=== PATIENT | male | born 1985 | race Caucasian/White ===

== ENCOUNTER 2024-04-28 18:43 | Emergency (ER) | payer SELFPAY ==
[~2024-04-28] VITALS: Ht 180.3 cm; Wt 113.4 kg
[2024-04-28 20:48] LABS: BASOPHILS # (AUTO) 0.05 K/uL (0.00-0.20); BASOPHILS % (AUTO) 0.6 % (0.0-5.0); EOSINOPHILS # (AUTO) 0.04 K/uL (0.00-0.70); EOSINOPHILS % (AUTO) 0.5 % (0.0-8.0); HEMATOCRIT 45.8 % (42-54); IMMATURE GRANULOCYTE ABSOLUTE 0.04 K/uL (0-1); LYMPHOCYTES # (AUTO) 1.1 K/uL (1.0-4.8); LYMPHOCYTES % (AUTO) 14.2 % (21.0-51.0); MEAN CORPUSCULAR HEMOGLOBIN 29.5 pg (27.0-33.0); MEAN CORPUSCULAR HGB CONC 33.6 g/dL (32.0-36.0); MEAN CORPUSCULAR VOLUME 87.7 fL (79-99); MONOCYTES # (AUTO) 0.5 K/uL (0.1-1.0); MONOCYTES % (AUTO) 6.7 % (3.0-13.0); NEUTROPHILS # (AUTO) 6.2 K/uL (1.8-7.7); NEUTROPHILS % (AUTO) 77.5 % (40.0-77.0); PLATELET COUNT (AUTO) 178 K/uL (130-400); RED BLOOD CELL COUNT(AUTO) 5.22 MIL/uL (4.50-6.20); RED CELL DISTRIBUTION WIDTH 13.9 % (11.0-15.5); WHITE BLOOD COUNT (AUTO) 8.1 K/uL (4.8-10.8)
[2024-04-28 20:56] LABS: APPEARANCE,URINE CLEAR (CLEAR); BILIRUBIN,URINE NEGATIVE (NEGATIVE); COLOR,URINE LIGHT-YELLOW (YELLOW); GLUCOSE, URINE (UA) NEGATIVE (NEGATIVE); KETONES,URINE NEGATIVE (NEGATIVE); LEUKOCYTE ESTERASE ,URINE NEGATIVE Leu/uL (NEGATIVE); NITRATE,URINE NEGATIVE (NEGATIVE); OCCULT BLOOD,URINE NEGATIVE (NEGATIVE); PROTEIN,URINE NEGATIVE (NEGATIVE); UROBILINOGEN,URINE 0.2 mg/dL (0.2-1.0)
[2024-04-28 21:02] LABS: ADD UA MICROSCOPIC NO
[2024-04-28 21:10] LABS: POTASSIUM 3.9 mmol/L (3.5-5.1)
[2024-04-28 22:02] VITALS: BP 138/76; PULSE 82; RESP 18; TEMP 98.4; O2SAT 99
== END 2024-04-28 22:07 | disposition home or self-care (01) ==
LOC: EDH 18:43
DX: R20.2 Paresthesia of skin (principal); E78.00 Pure hypercholesterolemia, unspecified; I10 Essential (primary) hypertension
CPT/HCPCS: 36415; 80048; 81003; 84484; 85025; 93005

== ENCOUNTER → 2024-07-11 | Outpatient (CLI) | payer OTHER ==
[~2024-07-11] MED LIST: IOHEXOL 350 MG/ML 100ML INFUS..BTL IV ONE; metoPROLOL tartRATE 1 MG/ML 5ML VIAL IV ONE
--- NOTE | 2024-07-11 14:20 | HMCIMG ---
CT CARDIAC ANGIO W/CONT. CCTA REASON: CHEST PAIN COMPARISON: None TECHNIQUE: Images are obtained through the heart in the axial plane before and during bolus IV contrast infusion, 100 cc Omnipaque 350. 2-D and 3-D multiplanar reconstruction images were then performed. The injection had to be repeated once due to motion artifact on the first sequence, total contrast volume was 200 cc. FINDINGS: This dictation is for the noncardiac findings only. Cardiac and coronary artery findings are reported separately. Visualized portions of the lungs are clear. There is normal-appearing pulmonary interstitium. There is no hilar or mediastinal lymphadenopathy. Chest wall structures appear unremarkable. IMPRESSION: 1. Unremarkable noncardiac portions of CT cardiac angiography.
== END | disposition home or self-care (01) ==
LOC: RAH 09:20
PROVIDERS: ATTEND Student in an Organized Health Care Education/Training Program
DX: R07.9 Chest pain, unspecified (principal)
CPT/HCPCS: 75574; J3490; Q9967

== ENCOUNTER 2024-07-19 22:19 | Emergency (ER) | payer OTHER ==
[~2024-07-19] VITALS: Ht 180.3 cm; Wt 111.6 kg
[~2024-07-19 22:19] MED LIST changes: +ketOROlac 15MG/ML VIAL (15MG/ML) IV ONE; -metoPROLOL tartRATE 1 MG/ML 5ML VIAL IV ONE
[2024-07-19 23:17] LABS: BASOPHILS # (AUTO) 0.02 K/uL (0.00-0.20); BASOPHILS % (AUTO) 0.2 % (0.0-5.0); EOSINOPHILS # (AUTO) 0.01 K/uL (0.00-0.70); EOSINOPHILS % (AUTO) 0.1 % (0.0-8.0); HEMATOCRIT 44.2 % (42-54); IMMATURE GRANULOCYTE ABSOLUTE 0.04 K/uL (0-1); LYMPHOCYTES # (AUTO) 0.3 K/uL (1.0-4.8); LYMPHOCYTES % (AUTO) 2.5 % (21.0-51.0); MEAN CORPUSCULAR HEMOGLOBIN 28.6 pg (27.0-33.0); MEAN CORPUSCULAR HGB CONC 33.3 g/dL (32.0-36.0); MONOCYTES # (AUTO) 0.4 K/uL (0.1-1.0); MONOCYTES % (AUTO) 3.5 % (3.0-13.0); NEUTROPHILS # (AUTO) 9.2 K/uL (1.8-7.7); NEUTROPHILS % (AUTO) 93.3 % (40.0-77.0); PLATELET COUNT (AUTO) 149 K/uL (130-400); RED BLOOD CELL COUNT(AUTO) 5.14 MIL/uL (4.50-6.20); RED CELL DISTRIBUTION WIDTH 13.5 % (11.0-15.5); WHITE BLOOD COUNT (AUTO) 9.9 K/uL (4.8-10.8)
[2024-07-19] MEDS: 0.9%NACL 1000ML 1,000 ML IV ONE (23:28)
[2024-07-19 23:32] LABS: POTASSIUM 3.6 mmol/L (3.5-5.1)
[2024-07-19 23:48] LABS: ALBUMIN 3.3 g/dL (3.5-5.0); BILIRUBIN,DIRECT 0.2 mg/dL (0.0-0.3); BILIRUBIN,TOTAL 0.8 mg/dL (0.2-1.0); TOTAL PROTEIN, SERUM 6.7 g/dL (6.0-8.3)
[2024-07-20] MEDS ORDERED: IOHEXOL 350 MG/ML 100ML INFUS..BTL IV ONE (00:12)
--- NOTE | 2024-07-20 00:54 | HMCIMG ---
CT ABDOMEN/PELVIS W/CONTRAST HISTORY: Abdominal pain COMPARISON: None TECHNIQUE: Multiple sequential axial images of the abdomen and pelvis were obtained from the dome of the diaphragm through symphysis pubis. Patient was given 100 cc of Omnipaque through intravenous route. Oral contrast was not given. FINDINGS: No pleural effusion is seen bilaterally. There is no evidence of parenchymal disease or pulmonary nodule of the visualized lower lungs. Degenerative changes of the thoracolumbar spine are present. The heart is not enlarged. There is gastric distention. Liver is enlarged measuring 18 cm. There is gastric distention. Small bowel dilatation is seen with fluid-filled small bowel loops and colon may be related to enterocolitis. The liver, spleen, adrenal glands and pancreas are unremarkable. There is no evidence of hydronephrosis bilaterally. No evidence of renal stone is seen. Fecal material is seen in the colon. There are normal size retroperitoneal and mesenteric lymph nodes. No ascites is seen. No CT evidence of acute appendicitis is seen. Clinical correlation is recommended. Pelvic sidewalls are symmetric bilaterally. Bladder is well distended without wall thickening. IMPRESSION: 1. Gastric distention. Small bowel dilatation with fluid-filled small bowel loops and colon may be related to enterocolitis. CT was performed with one or more following dose reduction techniques: automated exposure control, adjustment of the mA and kv according to patient's size, or use of a iterative reconstruction technique.
[2024-07-20] MEDS ORDERED: ONDA-243 PO (01:30)
[2024-07-20] MEDS ORDERED: FAMO-136 PO (01:30)
--- NOTE | 2024-07-20 01:31 | ERN ---
General Chief Complaint: Abdominal Pain Stated Complaint: C/O ABD PAIN, N X V, DIZZINESS Time Seen by MD: 22:21 Time Seen by Midlevel: 22:21 Source: patient History of Present Illness Initial Comments Patient is a 38-year-old male with no significant past medical history presenting to the emergency department with diffuse abdominal pain that started earlier today. Associated symptoms include nausea, vomiting, and diarrhea. No other symptoms reported at this time. Allergies: Coded Allergies: No Known Allergies (Unverified Allergy, Unknown, 04/28/24) Home Meds Active Scripts Famotidine (Pepcid) 20 Mg Tablet, 1 TAB PO BID for 30 Days, #60 TAB 0 Refills Prov:DALLAS GREENBERG 07/20/24 Ondansetron (Ondansetron Odt) 4 Mg Tab.rapdis, 4 MG PO BID for 7 Days, #14 TAB Prov:DALLAS GREENBERG 07/20/24 Past Medical History Past Medical History: High Cholesterol, Hypertension Past Surgical History: None ROS Dictation CONSTITUTIONAL: Negative except for HPI HEAD/FACE: Negative except for HPI EENT: Negative except for HPI RESPIRATORY: Negative except for HPI GASTROINTESTINAL/ABDOMINAL: Negative except for HPI GENITOURINARY: Negative except for HPI MUSCULOSKELETAL: Negative except for HPI INTEGUMENTARY: Negative except for HPI NEUROLOGICAL/PSYCH: Negative except for HPI HEMATOLOGIC/LYMPHATIC: Negative except for HPI All Systems Negative, Except as noted above. 13 point review of systems assessed and all negative except for above. Physical Exam Physical Exam Dictation Vital Signs reviewed General Appearance: Alert, oriented x 3, no acute distress, well developed, nourished. Head and Face: non-traumatic. Eyes: PERRL, pink conjunctivas, eyelid no trauma, anterior chamber with arcus senilis. Ears: Pinnas intact and no signs of trauma or erythema ear canals clear and no discharge TM no erythema Nose: No discharge, no bleeding. Oropharynx: Mouth normal, tongue pink, pharynx clear,no erythema, tonsils no exudates, no abscesses noted, mucous membrane moist Neck: Supple, non-tender, no thyromegaly, no masses, no JVD, no bruits Breast:Deferred Chest:No tenderness, no crepitus, no paradoxical movement, no retractions Lungs:Clear, well-ventilated, symmetric, no rales, no wheezing, no rhonchi, no stridor, good breath sounds bilaterally Heart: Regular rate, regular rhythm, no murmur, no gallops Vascular: no peripheral edema, Abdomen: Soft, positive bowel sounds, nondistended, no guarding, nontender, no rebound, no masses no hepatomegaly, no splenomegaly, no Hoover's sign, no hernias. Rectal: Deferred Genital: Deferred Neurological: Normal speech, motor function intact, sensory function intact Musculoskeletal: Neck nontender, full range of motion, back nontender, full range of motion, Extremities: nontender, full range of motion Skin: Color pink, dry, no turgor, no rash, no lacerations, no abrasions, no contusions. Lymphatic: Deferred Results Laboratory and Microbiology Lab and Micro Result Laboratory Tests Test 07/19/24 23:05 White Blood Count 9.9 K/uL (4.8-10.8) Red Blood Count 5.14 MIL/uL (4.50-6.20) Hemoglobin 14.7 g/dL (14.0-18.0) Hematocrit 44.2 % (42-54) Mean Corpuscular Volume 86.0 fL (79-99) Mean Corpuscular Hemoglobin 28.6 pg (27.0-33.0) Mean Corpuscular Hemoglobin Concent 33.3 g/dL (32.0-36.0) Red Cell Distribution Width 13.5 % (11.0-15.5) Platelet Count 149 K/uL (130-400) Mean Platelet Volume 9.3 fL (7.5-10.5) Immature Granulocyte % (Auto) 0.4 % (0-1) Neutrophils (%) (Auto) 93.3 % (40.0-77.0) H Lymphocytes (%) (Auto) 2.5 % (21.0-51.0) L Monocytes (%) (Auto) 3.5 % (3.0-13.0) Eosinophils (%) (Auto) 0.1 % (0.0-8.0) Basophils (%) (Auto) 0.2 % (0.0-5.0) Neutrophils # (Auto) 9.2 K/uL (1.8-7.7) H Lymphocytes # (Auto) 0.3 K/uL (1.0-4.8) L Monocytes # (Auto) 0.4 K/uL (0.1-1.0) Eosinophils # (Auto) 0.01 K/uL (0.00-0.70) Basophils # (Auto) 0.02 K/uL (0.00-0.20) Absolute Immature Granulocyte (auto 0.04 K/uL (0-1) Nucleated Red Blood Cells 0.0 % (0.0-0.19) White Cell Morphology Comment See comments Sodium Level 136 mmol/L (136-145) Potassium Level 3.6 mmol/L (3.5-5.1) Chloride Level 103 mmol/L (101-111) Carbon Dioxide Level 25 mmol/L (21-32) Blood Urea Nitrogen 25 mg/dL (7-18) H Creatinine 1.0 mg/dL (0.5-1.3) Glomerular Filtration Rate Calc 98 mL/min (>90) Random Glucose 126 mg/dL (70-105) H Total Calcium 8.5 mg/dL (8.5-10.1) Total Bilirubin 0.8 mg/dL (0.2-1.0) Direct Bilirubin 0.2 mg/dL (0.0-0.3) Aspartate Amino Transf (AST/SGOT) 16 U/L (10-37) Alanine Aminotransferase (ALT/SGPT) 29 U/L (12-78) Alkaline Phosphatase 55 U/L (50-136) Total Protein 6.7 g/dL (6.0-8.3) Albumin 3.3 g/dL (3.5-5.0) L Lipase 37 U/L (16-77) Labs Reviewed?: Yes MDM MDM: Differential diagnosis: Dehydration, electrolyte abnormality, gastroenteritis, enterocolitis There are no social concerns with this patient. Prescription drug management Prescriptions will include: Zofran Pepcid Medical management and examination interpretation discussions were had by me with other qualified healthcare professionals as indicated for the patient's care. ED Course Orders Procedure Category Date Status Time Cbc With Differential LAB 07/19/24 Complete 22:47 Basic Metabolic Panel LAB 07/19/24 Complete 22:51 Hepatic Function Panel LAB 07/19/24 Complete 22:51 Lipase LAB 07/19/24 Complete 22:51 0.9%Nacl 1000ml (Ns PHA 07/19/24 Complete 1000ml) 23:30 Ct Abdomen/Pelvis CT 07/19/24 Resulted W/Contrast 23:20 Iohexol (Omnipaque) PHA 07/20/24 Complete 00:12 Ketorolac PHA 07/20/24 Complete Tromethamine 15mg/Ml 01:30 Current Medications Medications (Trade) Dose Ordered Sig/Jong Route PRN Reason Start Time Stop Time Status Last Admin Dose Admin Iohexol (Omnipaque) 35,000 mg STK-MED ONCE IV 07/20/24 00:12 07/20/24 00:12 DC Ketorolac Tromethamine (toRADol) 15 mg ONCE ONCE IV 07/20/24 01:30 07/20/24 01:32 DC 07/20/24 01:36 Sodium Chloride 1,000 ml @ 0 mls/hr ONCE ONCE IV 07/19/24 23:30 07/19/24 23:31 DC 07/19/24 23:28 Vital Signs Date Time Temp Pulse Resp B/P (MAP) Pulse Ox O2 Delivery O2 Flow Rate FiO2 07/20/24 01:38 98.4 100 18 126/82 97 Room Air* 0 07/19/24 23:40 106 18 127/88 98 Room Air* 0 07/19/24 22:21 99.9 125 20 146/94 99 Room Air [place] [id number] IMAGING REPORT Signed PATIENT: JUAN F BANDA MR#: [id number] : 1985 SEX: M AGE: 38 LOCATION: [facility] ORDER 19 STATUS: REG ER REPORT#: [id number] SERVICE 19 REASON: diffuse abd pain/fever/tachycardia ORDERING PHYSICIAN: DALLAS GREENBERG PROCEDURE: ABD PEL W - CT ABDOMEN/PELVIS W/CONTRAST CT ABDOMEN/PELVIS W/CONTRAST HISTORY: Abdominal pain COMPARISON: None TECHNIQUE: Multiple sequential axial images of the abdomen and pelvis were obtained from the dome of the diaphragm through symphysis pubis. Patient was given 100 cc of Omnipaque through intravenous route. Oral contrast was not given. FINDINGS: No pleural effusion is seen bilaterally. There is no evidence of parenchymal disease or pulmonary nodule of the visualized lower lungs. Degenerative changes of the thoracolumbar spine are present. The heart is not enlarged. There is gastric distention. Liver is enlarged measuring 18 cm. There is gastric distention. Small bowel dilatation is seen with fluid-filled small bowel loops and colon may be related to enterocolitis. The liver, spleen, adrenal glands and pancreas are unremarkable. There is no evidence of hydronephrosis bilaterally. No evidence of renal stone is seen. Fecal material is seen in the colon. There are normal size retroperitoneal and mesenteric lymph nodes. No ascites is seen. No CT evidence of acute appendicitis is seen. Clinical correlation is recommended. Pelvic sidewalls are symmetric bilaterally. Bladder is well distended without wall thickening. IMPRESSION: 1. Gastric distention. Small bowel dilatation with fluid-filled small bowel loops and colon may be related to enterocolitis. CT was performed with one or more following dose reduction techniques: automated exposure control, adjustment of the mA and kv according to patient's size, or use of a iterative reconstruction technique. DICTATED BY: EDWIN SILVA MD DATE: 07/20/2443 ELECTRONICALLY SIGNED BY: EDWIN SILVA MD DATE: 07/20/2453 DX & DISP Disposition: Discharge Departure Impression: Primary Impression: Enterocolitis Condition: Stable Scripts Famotidine (Pepcid) 20 Mg Tablet 1 TAB PO BID for 30 Days, #60 TAB 0 Refills Prov: DALLAS GREENBERG 07/20/24 Ondansetron (Ondansetron Odt) 4 Mg Tab.rapdis 4 MG PO BID for 7 Days, #14 TAB Prov: DALLAS GREENBERG 07/20/24 Additional Instructions: Your blood work today is stable. Your CT scan shows findings consistent with enterocolitis. This should improve over the next couple of days. Have given you a prescription for Zofran and Pepcid which should help improve your symptoms. Please follow up with your primary care doctor. If you develop any new or worsening symptoms please return to the ER for further evaluation. Referrals: SABI ROSENBERG MD (PCP) Time of Disposition: :29 I have reviewed the case, and I agree with, Diagnosis and Plan I performed the substantive portion of the visit. I have reviewed and personally made and approve the management plan that is documented in the note by myself or the MARYANNE. I acknowledge for responsibility for the patient's management plan. DALLAS GREENBERG Jul 20, 2024 01:31
[2024-07-20] MEDS: ketOROlac 15MG/ML VIAL (15MG/ML) IV ONE (01:36)
[2024-07-20 01:38] VITALS: BP 126/82; PULSE 100; RESP 18; TEMP 98.4; O2SAT 97
== END 2024-07-20 01:41 | disposition home or self-care (01) ==
LOC: EDH 22:19
DX: K52.9 Noninfective gastroenteritis and colitis, unspecified (principal); E78.00 Pure hypercholesterolemia, unspecified; I10 Essential (primary) hypertension
CPT/HCPCS: 99285; 74177; 80076; 80048; 83690; 85025; 36415; 96374; J7030; Q9967; J1885

== ENCOUNTER 2024-08-01 11:50 | Emergency (ER) | payer OTHER ==
[~2024-08-01] VITALS: Ht 180.3 cm; Wt 103.9 kg
[~2024-08-01 11:50] MED LIST changes: +FAMO-136 PO; -IOHEXOL 350 MG/ML 100ML INFUS..BTL IV ONE; +ONDA-243 PO; -ketOROlac 15MG/ML VIAL (15MG/ML) IV ONE
[2024-08-01] MEDS ORDERED: ASPIRIN 325MG TAB PO ONE (12:00)
--- NOTE | 2024-08-01 12:05 | ERN ---
ED Note History of Present Illness Stated Complaint: CHEST PAIN, HAND ARE TINGLING Chief Complaint: Chest Pain Time Seen by MD: 11:53 Dictation: PATIENT IS A 38-YEAR-OLD MALE COMING IN TODAY WITH HAVING ANTERIOR CHEST PAIN THAT DOES NOT RADIATE MILD SHORTNESS A BREATH AND HAND TINGLING ONSET WAS MORE THAN A WEEK AGO. HE STATES HE HAD BEEN SEEN AT [facility] [place] [place] FOR A GASTROENTERITIS, THEN SAW HIS PRIMARY CARE DOCTOR WHO PUT HIM ON ANTIBIOTICS. STATES HE HAS BEEN REFERRED TO DR. TAE GARZA BECAUSE OF INTERMITTENT CHEST PAIN HOWEVER HAS ONLY SEEN HIM ONE TIME WITH NO WORKUPS NO HEART CATHETERIZATION. HE HAS NO STENTS NO HISTORY OF CABG SURGERY. STATES HE CALLED DR. GUTIERREZ OFFICE THIS MORNING AND WAS TOLD TO COME TO THE EMERGENCY ROOM. HE STATES WHEN HE HAS A CHEST PAIN IT MAKES HIM LIGHTHEADED. Allergies: Coded Allergies: No Known Allergies (Unverified Allergy, Unknown, 04/28/24) Home Meds Active Scripts Famotidine (Pepcid) 20 Mg Tablet, 1 TAB PO BID for 30 Days, #60 TAB 0 Refills Prov:DALLAS GREENBERG 07/20/24 Ondansetron (Ondansetron Odt) 4 Mg Tab.rapdis, 4 MG PO BID for 7 Days, #14 TAB Prov:DALLAS GREENBERG 07/20/24 Past Medical History Past Medical History: Diverticulitis, High Cholesterol, Hypertension Surgical History: None RN Note Reviewed/Agreed w/PFSH: Yes Review of System Dictation CONSTITUTIONAL: NEGATIVE EXCEPT FOR HPI LIGHTHEADED HEAD/FACE: NEGATIVE EXCEPT FOR HPI EENT: NEGATIVE EXCEPT FOR HPI RESPIRATORY: NEGATIVE EXCEPT FOR HPI ANTERIOR CHEST PAIN GASTROINTESTINAL/ABDOMINAL: NEGATIVE EXCEPT FOR HPI GENITOURINARY: NEGATIVE EXCEPT FOR HPI MUSCULOSKELETAL: NEGATIVE EXCEPT FOR HPI INTEGUMENTARY: NEGATIVE EXCEPT FOR HPI NEUROLOGICAL/PSYCH: NEGATIVE EXCEPT FOR HPI NUMBNESS AND TINGLING HANDS HEMATOLOGIC/LYMPHATIC: NEGATIVE EXCEPT FOR HPI ALL SYSTEMS NEGATIVE, EXCEPT NOTED ABOVE. 13 POINT REVIEW OF SYSTEMS ASSESSED AND ALL NEGATIVE EXCEPT FOR ABOVE. Initial Vital Sign VS Vital Signs Date Time Temp Pulse Resp B/P (MAP) Pulse Ox O2 Delivery O2 Flow Rate FiO2 08/01/24 11:59 99.1 81 16 154/102 98 Room Air 0 Physical Exam Dictation VITAL SIGNS REVIEWED GENERAL APPEARANCE: ALERT, ORIENTED X 3, NO ACUTE DISTRESS, WELL DEVELOPED, NOURISHED. 1/10 PAIN, OBESE HEAD AND FACE: NON-TRAUMATIC. EYES: PERRL, PINK CONJUNCTIVAS, EYELID NO TRAUMA, ANTERIOR CHAMBER WITH ARCUS SENILIS. EARS: PINNAS INTACT AND NO SIGNS OF TRAUMA OR ERYTHEMA EAR CANALS CLEAR AND NO DISCHARGE TM NO ERYTHEMA NOSE: NO DISCHARGE, NO BLEEDING. OROPHARYNX: MOUTH NORMAL, TONGUE PINK, PHARYNX CLEAR,NO ERYTHEMA, TONSILS NO EXUDATES, NO ABSCESSES NOTED, MUCOUS MEMBRANE MOIST NECK: SUPPLE, NON-TENDER, NO THYROMEGALY, NO MASSES, NO JVD, NO BRUITS BREAST:DEFERRED CHEST:NO TENDERNESS, NO CREPITUS, NO PARADOXICAL MOVEMENT, NO RETRACTIONS LUNGS:CLEAR, WELL-VENTILATED, SYMMETRIC, NO RALES, NO WHEEZING, NO RHONCHI, NO STRIDOR, GOOD BREATH SOUNDS BILATERALLY HEART: REGULAR RATE, REGULAR RHYTHM, NO MURMUR, NO GALLOPS VASCULAR: NO PERIPHERAL EDEMA, ABDOMEN: SOFT, POSITIVE BOWEL SOUNDS, NONDISTENDED, NO GUARDING, NONTENDER, NO REBOUND, NO MASSES NO HEPATOMEGALY, NO SPLENOMEGALY, NO BHATT'S SIGN, NO HERNIAS. RECTAL: DEFERRED GENITAL: DEFERRED NEUROLOGICAL: NORMAL SPEECH, MOTOR FUNCTION INTACT, SENSORY FUNCTION INTACT MUSCULOSKELETAL: NECK NONTENDER, FULL RANGE OF MOTION, BACK NONTENDER, FULL RANGE OF MOTION, EXTREMITIES: NONTENDER, FULL RANGE OF MOTION SKIN: COLOR PINK, DRY, NO TURGOR, NO RASH, NO LACERATIONS, NO ABRASIONS, NO CONTUSIONS. LYMPHATIC: DEFERRED Results (Laboratory/Radiology) Laboratory/Radiology Laboratory Tests Test 08/01/24 12:29 White Blood Count 5.8 K/uL (4.8-10.8) Red Blood Count 5.23 MIL/uL (4.50-6.20) Hemoglobin 14.9 g/dL (14.0-18.0) Hematocrit 45.0 % (42-54) Mean Corpuscular Volume 86.0 fL (79-99) Mean Corpuscular Hemoglobin 28.5 pg (27.0-33.0) Mean Corpuscular Hemoglobin Concent 33.1 g/dL (32.0-36.0) Red Cell Distribution Width 13.0 % (11.0-15.5) Platelet Count 195 K/uL (130-400) Mean Platelet Volume 9.3 fL (7.5-10.5) Immature Granulocyte % (Auto) 0.3 % (0-1) Neutrophils (%) (Auto) 69.6 % (40.0-77.0) Lymphocytes (%) (Auto) 19.7 % (21.0-51.0) L Monocytes (%) (Auto) 9.2 % (3.0-13.0) Eosinophils (%) (Auto) 0.5 % (0.0-8.0) Basophils (%) (Auto) 0.7 % (0.0-5.0) Neutrophils # (Auto) 4.1 K/uL (1.8-7.7) Lymphocytes # (Auto) 1.2 K/uL (1.0-4.8) Monocytes # (Auto) 0.5 K/uL (0.1-1.0) Eosinophils # (Auto) 0.03 K/uL (0.00-0.70) Basophils # (Auto) 0.04 K/uL (0.00-0.20) Absolute Immature Granulocyte (auto 0.02 K/uL (0-1) Nucleated Red Blood Cells 0.0 % (0.0-0.19) Sodium Level 140 mmol/L (136-145) Potassium Level 3.7 mmol/L (3.5-5.1) Chloride Level 103 mmol/L (101-111) Carbon Dioxide Level 28 mmol/L (21-32) Blood Urea Nitrogen 11 mg/dL (7-18) Creatinine 1.1 mg/dL (0.5-1.3) Glomerular Filtration Rate Calc 87 mL/min (>90) Random Glucose 109 mg/dL (70-105) H Total Calcium 9.1 mg/dL (8.5-10.1) Magnesium Level 2.00 mg/dL (1.80-2.40) Troponin I High Sensitivity 7 ng/L (4-75) B-Type Natriuretic Peptide 9 pg/mL (0-100) Exam Type: CHEST 1VW Clinical Information: CHEST PAIN Comparison: None Findings: The lungs are clear of infiltrates. The heart is normal in size. The bony and soft tissue structures of the chest are unremarkable. Impression: Clear lungs. Labs Reviewed?: Yes EKG Comment: FIRST EKG SINUS BRADYCARDIA/HEART RATE 57/AXIS NORMAL/NO CHANGES ED Course ED Course Orders Procedure Category Date Status Time Cbc With Differential LAB 08/01/24 Complete 11:59 B-Type Natriuretic LAB 08/01/24 Complete Peptide 11:59 Chest 1vw RAD 08/01/24 Resulted 11:59 12 Lead Ekg Tracing- EKG 08/01/24 Complete Technical 11:59 Magnesium LAB 08/01/24 Complete 11:59 Troponin I High LAB 08/01/24 Complete Sensitivity 11:59 Aspirin 325mg Tab PHA 08/01/24 Complete (Aspirin 325mg Tab) 12:00 Urinalysis Profile LAB 08/01/24 Logged 11:59 Basic Metabolic Panel LAB 08/01/24 Complete 11:59 Current Medications Medications (Trade) Dose Ordered Sig/Jong Route PRN Reason Start Time Stop Time Status Last Admin Dose Admin Aspirin (Aspirin 325mg Tab) 325 mg ONCE ONCE PO 08/01/24 12:00 08/01/24 12:01 DC Vital Signs Date Time Temp Pulse Resp B/P (MAP) Pulse Ox O2 Delivery O2 Flow Rate FiO2 08/01/24 11:59 99.1 81 16 154/102 98 Room Air 0 SEVENTEEN 20, PATIENT WILL BE DISCHARGED HOME WITH ATYPICAL CHEST PAIN. HE IS AWARE THAT HE HAS A NORMAL EKG TROPONIN LABS CHEST X-RAY NO ANEMIA NO INFECTION NO ELECTROLYTE IMBALANCE HEART Score Response (Comments) Value History: Low suspicion (0) 0 Risk Factors: 1-2 risk factors (+1) 1 Initial Troponin: Normal limit (0) 0 Total 1 Medical Decision Making MDM MDM: DIFFERENTIAL DIAGNOSIS: ACS/AMI/ELECTROLYTE IMBALANCE/DEHYDRATION /PNEUMONIA/BRONCHITIS/HYPOMAGNESEMIA RATIONALE: TESTS CONSIDERED AND ORDERED SECONDARY TO SHARED DECISION MAKING INCLUDE: LABS EKG/RADIOLOGY PREVIOUS OUTSIDE RECORDS REVIEWED: OLD ER VISITS. RISK OF COMPLICATION AND/OR MORBIDITY OR MORTALITY OF PATIENT MANAGEMENT: NONE MEDICATIONS-PER MEDICATION RECONCILIATION NEED FOR HOSPITALIZATION: PATIENT DOES NOT MEET CRITERIA FOR HOSPITALIZATION./EKG/NONE NEED FOR EMERGENCY MAJOR/MINOR SURGERY: NO THERE ARE NO SOCIAL CONCERNS WITH THIS PATIENT. PRESCRIPTION DRUG MANAGEMENT NONE PRESCRIPTIONS WILL INCLUDE SYMPTOMATIC CARE PATIENT'S PRIOR EXTERNAL MEDICAL RECORDS FROM OTHER ER VISITS WERE REVIEWED BY ME INDICATED. PRIOR TESTING AND RESULTS FROM PREVIOUS VISITS WERE REVIEWED. PRIOR TESTS WERE TAKEN INTO ACCOUNT WITH MEDICAL DECISION MAKING AND RESOURCE UTILIZATION, INDEPENDENT HISTORIAN/HISTORIANS WERE USED TO OBTAIN COMPLETE M EDICAL HISTORY. I INDEPENDENTLY INTERPRETED THE TEST THAT WERE PERFORMED, RESULTS WERE REVIEWED BY ME AND CONSIDERED FINDINGS ON RADIOLOGY IF ORDERED. MEDICAL MANAGEMENT AND EXAMINATION INTERPRETATION DISCUSSIONS WERE HAD BY ME WITH OTHER QUALIFIED HEALTHCARE PROFESSIONALS INDICATED FOR THE PATIENT'S CARE. DX & DISP Disposition: Discharge Departure Impression: Primary Impression: Atypical chest pain Condition: Stable Additional Instructions: FOLLOW-UP WITH PRIMARY CARE PROVIDER IN 1 TO 2 DAYS. TAKE MEDICATIONS DIRECTED HERE IN THE EMERGENCY ROOM. OKAY TO CONTINUE HOME MEDICATIONS UNLESS OTHERWISE DISCUSSED DURING YOUR VISIT IN THE EMERGENCY ROOM TODAY. RETURN TO YOUR NEAREST EMERGENCY ROOM IF SYMPTOMS WORSEN OR IF THERE IS NO IMPROVEMENT. CALL 911 IF YOU NEED IMMEDIATE ASSISTANCE. TAKE TYLENOL OR MOTRIN [id number] NEEDED AND IF NO CONTRAINDICATIONS ARE PRESENT. INCREASE ORAL HYDRATION. A WOUND CULTURE OR URINE CULTURE WAS ORDERED HERE IN THE EMERGENCY ROOM DEPARTMENT PLEASE FOLLOW-UP WITH PRIMARY CARE PROVIDER AND ADVISE THEM TO GET REPEAT PORTS FROM OUR FACILITY. IF YOU HAD ANY KAVITHA WRAP/SPLINTS THAT WERE APPLIED HERE, PLEASE DO NOT REMOVE THEM UNTIL YOU SEE YOUR PRIMARY CARE OR SPECIALTY. DIET AND ACTIVITY TOLERATED. FOLLOW UP WITH YOUR PRIMARY CARE DOCTOR IN THE NEXT 1-2 DAYS Referrals: SABI ROSENBERG MD (PCP) Time of Disposition: 17:23 I have reviewed the case, and I agree with, Diagnosis and Plan ANGELICA ANQVI NP Aug 01, 2024 12:05
--- NOTE | 2024-08-01 12:33 | EKG ---
[facility] Test Date: 2024-08-01 Test Time: 12:31:09 Pat Name: JUAN F BANDA Department: [facility] Room: Gender: Disposition Clerk: [facility] : 1985 Requested By: ANGELICA NAQVI Order Number: [id number] Reading MD: Roberto Carlos Lauren Measurements Intervals [place] Rate: 57 P: -1 WV: 149 QRS: 39 QRSD: 99 T: 41 QT: 402 QTc: 393 Interpretive Statements Sinus rhythm Compared to ECG 04/28/2024 20:20:46 No significant changes Electronically Signed On 08-04-2024 17:31:29 [employer] by Roberto Carlos Lauren Please click the below link to view image of tracing.
--- NOTE | 2024-08-01 13:00 | HMCIMG ---
Exam Type: CHEST 1VW Clinical Information: CHEST PAIN Comparison: None Findings: The lungs are clear of infiltrates. The heart is normal in size. The bony and soft tissue structures of the chest are unremarkable. Impression: Clear lungs.
[2024-08-01 13:07] LABS: BASOPHILS # (AUTO) 0.04 K/uL (0.00-0.20); BASOPHILS % (AUTO) 0.7 % (0.0-5.0); EOSINOPHILS # (AUTO) 0.03 K/uL (0.00-0.70); EOSINOPHILS % (AUTO) 0.5 % (0.0-8.0); IMMATURE GRANULOCYTE ABSOLUTE 0.02 K/uL (0-1); LYMPHOCYTES # (AUTO) 1.2 K/uL (1.0-4.8); LYMPHOCYTES % (AUTO) 19.7 % (21.0-51.0); MEAN CORPUSCULAR HEMOGLOBIN 28.5 pg (27.0-33.0); MEAN CORPUSCULAR HGB CONC 33.1 g/dL (32.0-36.0); MONOCYTES # (AUTO) 0.5 K/uL (0.1-1.0); MONOCYTES % (AUTO) 9.2 % (3.0-13.0); NEUTROPHILS # (AUTO) 4.1 K/uL (1.8-7.7); NEUTROPHILS % (AUTO) 69.6 % (40.0-77.0); PLATELET COUNT (AUTO) 195 K/uL (130-400); RED BLOOD CELL COUNT(AUTO) 5.23 MIL/uL (4.50-6.20); WHITE BLOOD COUNT (AUTO) 5.8 K/uL (4.8-10.8)
[2024-08-01 13:11] LABS: CREATININE 1.1 mg/dL (0.5-1.3); POTASSIUM 3.7 mmol/L (3.5-5.1)
[2024-08-01 13:38] LABS: B-TYPE NATRIURETIC PEPTIDE 9 pg/mL (0-100)
[2024-08-01 17:44] VITALS: BP 137/77; PULSE 45; RESP 17; TEMP 98.3; O2SAT 96
== END 2024-08-01 17:47 | disposition home or self-care (01) ==
LOC: EDH 11:50
DX: R07.89 Other chest pain (principal); E78.00 Pure hypercholesterolemia, unspecified; I10 Essential (primary) hypertension; Z79.899 Other long term (current) drug therapy
CPT/HCPCS: 36415; 71045; 80048; 83735; 83880; 84484; 85025; 93005; 99285

== ENCOUNTER → 2024-08-15 | Outpatient (CLI) | payer OTHER | END | disposition home or self-care (01) | LOC: SHCH 15:35 | PROVIDERS: ATTEND Student in an Organized Health Care Education/Training Program | DX: R07.9 Chest pain, unspecified (principal) | CPT/HCPCS: 93306 ==

== ENCOUNTER 2024-11-09 17:58 | Inpatient (IN) | payer OTHER ==
[~2024-11-09] VITALS: Ht 180.3 cm; Wt 97.6 kg
--- NOTE | 2024-11-09 18:21 | ERN ---
ED Note History of Present Illness Stated Complaint: ABDOMINAL PAIN Chief Complaint: Abdominal Pain Time Seen by MD: 18:00 Time Seen by Midlevel: 18:00 Dictation: The patient is a 39-year-old male with a history of cholelithiasis, gastritis who presents to the emergency department after being sent over by Dr. Saucedo for elevated total bilirubin, elevated AST and ALT the were drawn on Wednesday. Patient reports he has been having right side abdominal pain for awhile since May and is following up with [place] [facility]. Patient denies any nausea or vomiting, denies any fevers diarrhea or recent constipation. Allergies: Coded Allergies: No Known Allergies (Unverified Allergy, Unknown, 04/28/24) Home Meds Active Scripts Famotidine (Pepcid) 20 Mg Tablet, 1 TAB PO BID for 30 Days, #60 TAB 0 Refills Prov:DALLAS GREENBERG 07/20/24 Ondansetron (Ondansetron Odt) 4 Mg Tab.rapdis, 4 MG PO BID for 7 Days, #14 TAB Prov:DALLAS GREENBERG 07/20/24 Past Medical History Past Medical History: High Cholesterol, Hypertension Surgical History: None RN Note Reviewed/Agreed w/PFSH: Yes Review of System Dictation Constitutional: Negative for fever,chills, and weight loss Eyes: Negative for injury, pain,redness, and discharge ENT: Negative for injury,pain or swelling Cardiovascular: Negative for chest pain, palpitations, and edema Respiratory: Negative for shortness of breath, cough, and wheezing, Abdomen/GI: Negative for nausea, vomiting, diarrhea, and constipation positive for abdominal pain Back: Negative for injury and pain : Negative for injury, bleeding and discharge MS/Extremity: Negative for injury and deformity Skin: Negative for rash, and discoloration Neuro: Negative for headache, weakness, numbness, tingling, and seizure Psych: Negative for suicide ideation, homicidal ideation, and hallucinations Initial Vital Sign VS Vital Signs Date Time Temp Pulse Resp B/P (MAP) Pulse Ox O2 Delivery O2 Flow Rate FiO2 11/09/24 17:58 99.5 108 20 148/102 98 Room Air 0 11/09/24 19:36 21 Physical Exam Dictation Vital Signs reviewed General Appearance: Alert, oriented x 3, no acute distress, well developed, nourished. Head and Face: non-traumatic. Eyes: PERRL, pink conjunctivas, eyelid no trauma, anterior chamber with arcus senilis. Ears: Pinnas intact and no signs of trauma or erythema ear canals clear and no discharge TM no erythema Nose: No discharge, no bleeding. Oropharynx: Mouth normal, tongue pink. pharynx clear,no erythema, tonsils no exudates, no abscesses noted, mucous membrane moist Neck: Supple, non-tender, no thyromegaly, no masses, no JVD, no bruits Breast:Deferred Chest:No tenderness, no crepitus, no paradoxical movement, no retractions Lungs:Clear, well-ventilated, symmetric, no rales, no wheezing, no rhonchi, no stridor, good breath sounds bilaterally Heart: Regular rate, regular rhythm, no murmur, no gallops Vascular: no peripheral edema, Abdomen: Soft, positive bowel sounds, nondistended, no guarding, nontender, no rebound, no masses no hepatomegaly, no splenomegaly, no Hoover's s ign, no hernias. Rectal: Deferred Genital: Deferred Neurological: Normal speech, motor function intact, sensory function intact Musculoskeletal: Neck nontender, full range of motion, back nontender, full range of motion, Extremities: nontender, full range of motion Skin: Color pink, dry, no turgor, no rash, no lacerations, no abrasions, no contusions. Lymphatic: Deferred Results (Laboratory/Radiology) Laboratory/Radiology Laboratory Tests Test 11/09/24 18:40 11/09/24 18:41 White Blood Count 7.4 K/uL (4.8-10.8) Red Blood Count 5.67 MIL/uL (4.50-6.20) Hemoglobin 16.1 g/dL (14.0-18.0) Hematocrit 48.5 % (42-54) Mean Corpuscular Volume 85.5 fL (79-99) Mean Corpuscular Hemoglobin 28.4 pg (27.0-33.0) Mean Corpuscular Hemoglobin Concent 33.2 g/dL (32.0-36.0) Red Cell Distribution Width 13.7 % (11.0-15.5) Platelet Count 165 K/uL (130-400) Mean Platelet Volume 9.2 fL (7.5-10.5) Immature Granulocyte % (Auto) 0.5 % (0-1) Neutrophils (%) (Auto) 79.1 % (40.0-77.0) H Lymphocytes (%) (Auto) 8.7 % (21.0-51.0) L Monocytes (%) (Auto) 10.9 % (3.0-13.0) Eosinophils (%) (Auto) 0.4 % (0.0-8.0) Basophils (%) (Auto) 0.4 % (0.0-5.0) Neutrophils # (Auto) 5.8 K/uL (1.8-7.7) Lymphocytes # (Auto) 0.6 K/uL (1.0-4.8) L Monocytes # (Auto) 0.8 K/uL (0.1-1.0) Eosinophils # (Auto) 0.03 K/uL (0.00-0.70) Basophils # (Auto) 0.03 K/uL (0.00-0.20) Absolute Immature Granulocyte (auto 0.04 K/uL (0-1) Nucleated Red Blood Cells 0.0 % (0.0-0.19) White Cell Morphology Comment See comments Sodium Level 138 mmol/L (136-145) Potassium Level 3.6 mmol/L (3.5-5.1) Chloride Level 102 mmol/L (101-111) Carbon Dioxide Level 23 mmol/L (21-32) Blood Urea Nitrogen 13 mg/dL (7-18) Creatinine 1.1 mg/dL (0.5-1.3) Glomerular Filtration Rate Calc 86 mL/min (>90) Random Glucose 107 mg/dL (70-105) H Total Calcium 9.2 mg/dL (8.5-10.1) Total Bilirubin 4.4 mg/dL (0.2-1.0) H Direct Bilirubin 3.6 mg/dL (0.0-0.3) H Aspartate Amino Transf (AST/SGOT) 164 U/L (10-37) H Alanine Aminotransferase (ALT/SGPT) 621 U/L (12-78) *H Alkaline Phosphatase 238 U/L (50-136) H Total Protein 7.4 g/dL (6.0-8.3) Albumin 3.9 g/dL (3.5-5.0) Lipase 49 U/L (16-77) Urine Color YELLOW (YELLOW) Urine Appearance CLEAR (CLEAR) Urine pH 5.0 (5.0-8.0) Urine Specific [place] 1.007 (1.001-1.031) Urine Protein NEGATIVE mg/dL (NEGATIVE) Urine Glucose (UA) NEGATIVE mg/dL (NEGATIVE) Urine Ketones NEGATIVE mg/dL (NEGATIVE) Urine Occult Blood NEGATIVE (NEGATIVE) Urine Nitrate NEGATIVE (NEGATIVE) Urine Bilirubin 0.5 mg/dL (NEGATIVE) H Urine Urobilinogen 2.0 mg/dL (0.2-1.0) H Urine Leukocyte Esterase NEGATIVE Jesús/uL Urine RBC 0-1 /HPF (0-1) Urine WBC 2-5 /HPF (0-1) H Urine Bacteria None /HPF (None Seen) REASON: Adominal Pain ORDERING PHYSICIAN: ASHTYN CAMPOS PROCEDURE: ABDRUQLTD - US ABDOMINAL RUQ\LTD US ABDOMINAL RUQ\E\LTD HISTORY: Abdominal pain COMPARISON: None TECHNIQUE: Right upper quadrant abdominal ultrasound study was performed. FINDINGS: Liver measures 15.4 cm. The visualized portion of the pancreas is within normal limits. Liver is echogenic consistent with liver parenchymal disease. Gallbladder is contracted. Portal vein is patent. No gallstone is seen. Common duct measures 9 mm. No evidence of gallbladder wall thickening is seen. Right kidney measures 10.6 x 6.1 x 4.6 cm. No hydronephrosis is seen of the right kidney. IMPRESSION: 1. Contracted gallbladder. No gallstones or ductal dilatation is seen. 2. No hydronephrosis is seen. Labs Reviewed?: Yes ED Course ED Course Orders Procedure Category Date Status Time Vital Signs Per CPOE 11/09/24 Transmitted Routine 18:01 Saline Lock Iv CPOE 11/09/24 Transmitted 18:01 Cbc With Differential LAB 11/09/24 Complete 18:01 Lipase LAB 11/09/24 Complete 18:01 Urinalysis Profile LAB 11/09/24 Complete 18:01 Basic Metabolic Panel LAB 11/09/24 Complete 18:01 Us Abdominal Ruq\Ltd US 11/09/24 Resulted 18:13 0.9%Nacl 1000ml (Ns PHA 11/09/24 Complete 1000ml) 18:30 Morphine 4mg Syg PHA 11/09/24 Complete (Morphine 4mg Syg) 18:30 Ondansetron 4mg Inj PHA 11/09/24 Complete (Zofran 4mg Inj) 18:30 Hepatic Function Panel LAB 11/09/24 Complete 18:01 Current Medications Medications (Trade) Dose Ordered Sig/Jong Route PRN Reason Start Time Stop Time Status Last Admin Dose Admin Morphine Sulfate (morPHINE 4MG SYG) 4 mg ONCE ONCE IVP 11/09/24 18:30 11/09/24 18:31 DC 11/09/24 19:49 Ondansetron HCl (zoFRAN 4MG INJ) 4 mg ONCE ONCE IVP 11/09/24 18:30 11/09/24 18:31 DC 11/09/24 19:49 Sodium Chloride 1,000 ml @ 0 mls/hr ONCE ONCE IV 11/09/24 18:30 11/09/24 18:31 DC 11/09/24 19:50 Vital Signs Date Time Temp Pulse Resp B/P (MAP) Pulse Ox O2 Delivery O2 Flow Rate FiO2 11/09/24 19:36 99.5 108 20 148/102 98 Room Air* 0 21 11/09/24 17:58 99.5 108 20 148/102 98 Room Air 0 Medical Decision Making MDM MDM: The patient is a 39-year-old male with a history of cholelithiasis, gastritis who presents to the emergency department after being sent over by Dr. Saucedo for elevated total bilirubin, elevated AST and ALT the were drawn on Wednesday. Patient reports he has been having right side abdominal pain for awhi le since May and is following up with [place] [facility]. Patient denies any nausea or vomiting, denies any fevers diarrhea or recent constipation. CBC showed no leukocytosis, no anemia, chemistry showed a GFR of 86, no electrolyte imbalance, total bilirubin of 4.4, AST of 164, ALT of 621, alkaline phosphate of 238. Abdominal ultrasound showed contracted gallbladder, no gallstones or ductal dilation is seen, no hydronephrosis is seen. Patient will be admitted for further evaluation and treatment. Differential diagnosis: Choledocholithiasis, pancreatitis, electrolyte imbalance, dehydration Comorbidities: Cholelithiasis, gastritis Tests considered and not ordered secondary to shared decision making include: none Previous outside records reviewed: none Risk of complication and/or morbidity or mortality of patient management: The patient meets criteria for admission. Need for emergency major/minor surgery: No There are no social concerns with this patient. I independently interpreted the tests I ordered (labs, urinalysis, etc.). I discussed the case with the hospitalist for admission. Terry MADDEN who accepts admission. I discussed the case with the following specialists: none. Historian: pateint. I independently interpreted imaging studies and EKGs that I ordered (US, CT, XR, EKG, etc.). External chart review: none. Medical management and examination interpretation discussions were had by me with other qualified healthcare professionals as indicated for the patient's care. DX & DISP Disposition: Inpatient Decision to Admit Date: November 09, 2024 Decision to Admit Time: 20:48 Departure Impression: Primary Impression: Hyperbilirubinemia Additional Impressions: Transaminitis, Abdominal pain Condition: Stable Referrals: SABI ROSENBERG MD (PCP) I have reviewed the case, and I agree with, Diagnosis and Plan ASHTYN CAMPOS [facility] November 09, 2024 18:21
[2024-11-09 18:52] LABS: BASOPHILS # (AUTO) 0.03 K/uL (0.00-0.20); BASOPHILS % (AUTO) 0.4 % (0.0-5.0); EOSINOPHILS # (AUTO) 0.03 K/uL (0.00-0.70); EOSINOPHILS % (AUTO) 0.4 % (0.0-8.0); HEMATOCRIT 48.5 % (42-54); IMMATURE GRANULOCYTE ABSOLUTE 0.04 K/uL (0-1); LYMPHOCYTES # (AUTO) 0.6 K/uL (1.0-4.8); LYMPHOCYTES % (AUTO) 8.7 % (21.0-51.0); MEAN CORPUSCULAR HEMOGLOBIN 28.4 pg (27.0-33.0); MEAN CORPUSCULAR HGB CONC 33.2 g/dL (32.0-36.0); MEAN CORPUSCULAR VOLUME 85.5 fL (79-99); MONOCYTES # (AUTO) 0.8 K/uL (0.1-1.0); MONOCYTES % (AUTO) 10.9 % (3.0-13.0); NEUTROPHILS # (AUTO) 5.8 K/uL (1.8-7.7); NEUTROPHILS % (AUTO) 79.1 % (40.0-77.0); PLATELET COUNT (AUTO) 165 K/uL (130-400); RED BLOOD CELL COUNT(AUTO) 5.67 MIL/uL (4.50-6.20); RED CELL DISTRIBUTION WIDTH 13.7 % (11.0-15.5); WHITE BLOOD COUNT (AUTO) 7.4 K/uL (4.8-10.8)
[2024-11-09 19:00] LABS: ADD UA MICROSCOPIC YES; APPEARANCE,URINE CLEAR (CLEAR); BILIRUBIN,URINE 0.5 mg/dL (NEGATIVE); COLOR,URINE YELLOW (YELLOW); GLUCOSE, URINE (UA) NEGATIVE (NEGATIVE); KETONES,URINE NEGATIVE (NEGATIVE); LEUKOCYTE ESTERASE ,URINE NEGATIVE Leu/uL (NEGATIVE); NITRATE,URINE NEGATIVE (NEGATIVE); OCCULT BLOOD,URINE NEGATIVE (NEGATIVE); PROTEIN,URINE NEGATIVE (NEGATIVE)
[2024-11-09 19:02] LABS: MUCUS,URINE RARE LPF (None Seen); RBC,URINE 0-1 /HPF (0-1)
[2024-11-09 19:03] LABS: CREATININE 1.1 mg/dL (0.5-1.3); POTASSIUM 3.6 mmol/L (3.5-5.1)
[2024-11-09 19:14] LABS: ALBUMIN 3.9 g/dL (3.5-5.0); BILIRUBIN,DIRECT 3.6 mg/dL (0.0-0.3); BILIRUBIN,TOTAL 4.4 mg/dL (0.2-1.0); TOTAL PROTEIN, SERUM 7.4 g/dL (6.0-8.3)
--- NOTE | 2024-11-09 19:26 | HMCIMG ---
US ABDOMINAL RUQ\E\LTD HISTORY: Abdominal pain COMPARISON: None TECHNIQUE: Right upper quadrant abdominal ultrasound study was performed. FINDINGS: Liver measures 15.4 cm. The visualized portion of the pancreas is within normal limits. Liver is echogenic consistent with liver parenchymal disease. Gallbladder is contracted. Portal vein is patent. No gallstone is seen. Common duct measures 9 mm. No evidence of gallbladder wall thickening is seen. Right kidney measures 10.6 x 6.1 x 4.6 cm. No hydronephrosis is seen of the right kidney. IMPRESSION: 1. Contracted gallbladder. No gallstones or ductal dilatation is seen. 2. No hydronephrosis is seen.
[2024-11-09] MEDS: ondanSETRON 4MG INJ IVP ONE (19:49)
[2024-11-09] MEDS: morPHINE 4 MG SYG IVP ONE (19:49)
[2024-11-09] MEDS: 0.9%NACL 1000ML 1,000 ML IV ONE (19:50)
--- NOTE | 2024-11-09 20:57 | HP ---
History of Present Illness Reason for Visit: abdominal pain History of Present Illness Mr. montejo is a 39-year-old male that was seen and examined today on 11/09/2024. Patient is a good historian of personal health Patient states that he came to the emergency department with a chief complaint of abdominal pain. Onset was May 2024. Location is bilateral lower quadrants. Character is described as burning and dull ache. Symptoms are aggravated with eating. There was no alleviating factors. Patient reports associated constipation. Patient states he has been worked up for his chronic abdominal pain by both his video journalist and his PCP and there was no explanation for this abdominal pain today in the emergency department CBC unremarkable, urinalysis unremarkable, total bilirubin 4.4, AST 136, ALT 620, alk: Phosphatase 258, ultrasound of abdomen shows liver parenchymal disease. Emergency room physician recommended patient be admitted with a diagnosis of transaminitis. Past Medical History ADDITIONAL PAST MEDICAL HISTORY: [Hypertension, hyperlipidemia, chronic abdominal pain since May 2024] SOCIAL HISTORY: [Negative for smoking. Patient drinks alcohol about 2 times a week usually 2-3 beers that are 12 oz each. Patient denies drug use.] SURGICAL HISTORY: [Denies] Review of Systems General: No Fever, No Chills, No Night Sweats, No Fatigue, No Malaise, No Appetite, No Other HEENT: No Head Aches, No Visual Changes, No Eye Pain, No Ear Pain, No Dysphasia, No Sinus Congestion, No Post Nasal Drip, No Sore Throat, No Other Pulmonary: No Dyspnea, No Cough, No Pleuritic Chest Pain, No Other Cardiovascular: No: Chest Pain, Palpitations, Orthopnea, Paroxysmal Noc. Dyspnea, Edema, Lt Headedness, Other Gastrointestinal: Abdominal Pain, Constipation; No: Nausea, Vomiting, Diarrhea, Melena, Hematochezia, Other Genitourinary: No Dysuria, No Frequency, No Incontinence, No Hematuria; Retention; No Other Musculoskeletal: No: other, neck pain, shoulder pain, arm pain, back pain, hand pain, leg pain, foot pain Skin: No Urticaria, No Rash, No Other Neurological: No: Weakness, Numbness, Incoordination, Change in speech, Confu francesco, Seizures, Other Allergies: Coded Allergies: No Known Allergies (Unverified Allergy, Unknown, 04/28/24) Scheduled Famotidine (Pepcid), 1 TAB PO BID Ondansetron (Ondansetron Odt), 4 MG PO BID Exam Vital Signs Vital Signs Date Time Temp Pulse Resp B/P (MAP) Pulse Ox O2 Delivery O2 Flow Rate FiO2 11/09/24 19:36 99.5 108 20 148/102 98 Room Air* 0 21 General Appearance: Alert, Oriented X3, Cooperative, mild distress HEENT: Atraumatic, EOMI, Mucous membr. moist/pink Respiratory: Clear to auscultation, Normal air movement, NL respiratory effort Cardiovascular: Regular rate, Regular rhythm, Normal S1, Normal S2 Abdominal: Normal bowel sounds, No tenderness Extremities: No edema Skin: No significant lesion Neuro: Normal speech, Strength at 5/5 X4 ext, Sensation intact, Cranial nerves 3-12 NL Psych/Mental Status: Mental status NL, Mood NL, Thoughts/Content NL Assessment/Plan ASSESSMENT: [ Liver cirrhosis, POA, by abdominal ultrasound which reads" liver parenchymal disease, "on 11/09/2024 Transaminitis Elevated total bilirubin Hypertension Hyperlipidemia] PLAN: [ Admit patient to medical floor as inpatient status. Patient will be followed by Gastroenterology. Keep patient NPO. Check preprocedure labs, CBC, BMP, magnesium, phosphorus, PTT, UA, type and screen, EKG, CXR Monitor intake and output every shift. Weight patient daily. Check ammonia level, follow up with the results Check acute hepatitis panel Lactulose 20 g/30 mL by mouth twice daily Consider resuming home medications once they have been reconciled and patient is no longer NPO For now, Hydralazine 10 mg IV every 4 hours for systolic blood pressure greater than 160 mmHg GI prophylaxis, famotidine DVT prophylaxis, Nitesh's and SCDs ADVANCED CARE PLANNING 1. Which of the following were discussed? Hospice Care - Yes Therapeutic options - Yes Advance Directives - Yes -patient states he does not have any advance directives in place at this time, however his sister Cynthia Arthur can make decisions for him if he becomes unable. Other discussions - patient wishes to remain a full code at this time 2. Discussed with who? Patient 3. Voluntary nature of this service was explained to the patient? Yes 4. Amount of time spent - ___ 16 minutes ____ 5. Reviewed by Physician? (if this service was performed by NPP) Yes This document was generated in part using voice recognition software, occasional wrong word or sound alike substitutions may have occurred due to the inherent limitations of voice recognition software. Read the chart carefully and recognize using context, where the substitutions have occurred. Although every effort was made to edit the content, combination machine tool setter and typing errors may occur ADDENDUM: ATTENDING PHYSICIAN ATTESTATION: I have reviewed the [facility]'s plan. I have independently seen, reviewed the chart and made my own assessment of the patient. See my addendum for updates to the [facility]'s medical plan MD NAVID Varner JOE D [facility] November 09, 2024 20:57 ADRIANA ROSADO MD November 10, 2024 17:20
[2024-11-09] MEDS ORDERED: acetaMINOPHEN 325 MG TAB PO PRN (21:00)
[2024-11-09] MEDS ORDERED: hydrALAZine 20MG/ML VIAL IV PRN (21:00)
[2024-11-09] MEDS: LACTULOSE 20 GM/30 ML UDCUP PO SCH (21:32)
[2024-11-10 07:33] LABS: BASOPHILS # (AUTO) 0.03 K/uL (0.00-0.20); BASOPHILS % (AUTO) 0.6 % (0.0-5.0); EOSINOPHILS # (AUTO) 0.04 K/uL (0.00-0.70); EOSINOPHILS % (AUTO) 0.8 % (0.0-8.0); HEMATOCRIT 46.1 % (42-54); IMMATURE GRANULOCYTE ABSOLUTE 0.02 K/uL (0-1); LYMPHOCYTES # (AUTO) 0.8 K/uL (1.0-4.8); MEAN CORPUSCULAR HEMOGLOBIN 28.7 pg (27.0-33.0); MEAN CORPUSCULAR HGB CONC 33.2 g/dL (32.0-36.0); MEAN CORPUSCULAR VOLUME 86.3 fL (79-99); MONOCYTES # (AUTO) 0.6 K/uL (0.1-1.0); MONOCYTES % (AUTO) 13.2 % (3.0-13.0); NEUTROPHILS # (AUTO) 3.2 K/uL (1.8-7.7); PLATELET COUNT (AUTO) 141 K/uL (130-400); RED BLOOD CELL COUNT(AUTO) 5.34 MIL/uL (4.50-6.20); WHITE BLOOD COUNT (AUTO) 4.8 K/uL (4.8-10.8)
[2024-11-10 07:42] LABS: INR 1.01 (0.85-1.15); PROTHROMBIN TIME 10.7 SEC (9.6-11.6)
[2024-11-10 07:43] LABS: PARTIAL THROMBOPLASTIN TIME 25.8 SEC (26.3-35.5)
[2024-11-10 07:46] LABS: ALBUMIN 3.6 g/dL (3.5-5.0); BILIRUBIN,TOTAL 4.7 mg/dL (0.2-1.0); CREATININE 1.1 mg/dL (0.5-1.3); MAGNESIUM 1.9 mg/dL (1.80-2.40); PHOSPHORUS 4.1 mg/dL (2.5-4.9); POTASSIUM 4.1 mmol/L (3.5-5.1); TOTAL PROTEIN, SERUM 6.9 g/dL (6.0-8.3)
--- NOTE | 2024-11-10 08:14 | CONS ---
GASTROENTEROLOGY CONSULTATION NOTE Date of Consultation: November 10, 2024 Time of Consultation: 08:14 History of Present Illness: This is a 39yo male with past medial history of HTN, HLD, and abdominal pain ongoing since 05/2024. Patient was seen in clinic recently and LFTs were unremarkable. He presents now with elevated LFTs. He has stage 1 fibrosis. No evidence of cirrhosis. Total bili increased to 4.7. MRCP without c holedocholithiasis. Review of Systems: CONSTITUTIONAL: No malaise or change in sensation of wellbeing. ENMT: No rhinorrhea, otorrhea, sinus pain, ear ache. CARDIOVASCULAR: No angina, palpitations, orthopnea or paroxysmal dyspnea. RESPIRATORY: No SOB. GASTROINTESTINAL: No abdominal pain, nausea, vomiting, diarrhea, hematemesis, melena or change in the patient's habitual bowel movements consistency/number. GENITOURINARY: No dysuria, hematuria or change in bladder continence. MUSCULOSKELETAL: No new muscle pain or decrease in muscular strength. No new joint swelling, redness or tenderness. SKIN: No new rash. Past Medical History: ADDITIONAL PAST MEDICAL HISTORY: [Hypertension, hyperlipidemia, chronic abdominal pain since May 2024] SOCIAL HISTORY: [Negative for smoking. Patient drinks alcohol about 2 times a week usually 2-3 beers that are 12 oz each. Patient denies drug use.] SURGICAL HISTORY: [Denies] Coded Allergies: No Known Drug Allergies (Unverified Allergy, Unknown, 11/10/24) kiwi (Unverified Allergy, Unknown, 11/10/24) Uncoded Allergies: SEASONAL ALLERGIES (Allergy, Mild, 11/10/24) Physical Exam: GEN: Awake, alert, oriented in person, time and place, and in no acute distress. HEENT: No sinus tenderness. Tympanic membranes were not examined. No rhinorrhea. Oral pharyngeal mucosa is pink, moist and within normal limits. Neck is supple with no cervical lymphadenopathy, thyromegaly or JVD. CHEST: Inspection, palpation and percussion of the chest were unremarkable. Lung auscultation revealed normal breath sounds bilaterally. CARDIAC: PMI is within normal limits. Heart sounds are regular. Normal S1, S2. No gallop or murmur. ABD: Soft, non-tender and not distended. No peritoneal signs on palpation. No organomegaly. Normal bowel sounds. EXT: No cyanosis or clubbing. No edema. SKIN: Intact. No rashes. JOINTS: No evidence of synovitis or acute arthritis. NEURO: Alert and oriented to name, place and person. Cranial nerve examination is unremarkable. No focal motor deficits. Normal speech. Gait is normal. Strength is normal. Vital Sign (Last 24 Hours) 11/10/24 04:00 Temp 99.0 Pulse 50 Resp 16 B/P (MAP) 150/65 Pulse Ox 98 O2 Delivery Room Air* O2 Flow Rate 0 FiO2 21 Laboratory: [ ] Laboratory: Test 11/10/24 07:13 11/09/24 21:35 11/09/24 18:41 11/09/24 18:40 Range/Units White Blood Count 4.8 # 4.8-10.8 K/uL Red Blood Count 5.34 4.50-6.20 MIL/uL Hemoglobin 15.3 14.0-18.0 g/dL Hematocrit 46.1 42-54 % Mean Corpuscular Volume 86.3 79-99 fL Mean Corpuscular Hemoglobin 28.7 27.0-33.0 pg Mean Corpuscular Hemoglobin Concent 33.2 32.0-36.0 g/dL Red Cell Distribution Width 14.0 11.0-15.5 % Platelet Count 141 130-400 K/uL Mean Platelet Volume 9.6 7.5-10.5 fL Immature Granulocyte % (Auto) 0.4 0-1 % Neutrophils (%) (Auto) 68.0 40.0-77.0 % Lymphocytes (%) (Auto) 17.0 L 21.0-51.0 % Monocytes (%) (Auto) 13.2 H 3.0-13.0 % Eosinophils (%) (Auto) 0.8 0.0-8.0 % Basophils (%) (Auto) 0.6 0.0-5.0 % Neutrophils # (Auto) 3.2 1.8-7.7 K/uL Lymphocytes # (Auto) 0.8 L 1.0-4.8 K/uL Monocytes # (Auto) 0.6 0.1-1.0 K/uL Eosinophils # (Auto) 0.04 0.00-0.70 K/uL Basophils # (Auto) 0.03 0.00-0.20 K/uL Absolute Immature Granulocyte (auto 0.02 0-1 K/uL Nucleated Red Blood Cells 0.0 0.0-0.19 % Prothrombin Time 10.7 9.6-11.6 SEC Prothromb Time International Ratio 1.01 0.85-1.15 Activated Partial Thromboplast Time 25.8 L 26.3-35.5 SEC Sodium Level 142 136-145 mmol/L Potassium Level 4.1 3.5-5.1 mmol/L Chloride Level 105 101-111 mmol/L Carbon Dioxide Level 25 21-32 mmol/L Blood Urea Nitrogen 16 7-18 mg/dL Creatinine 1.1 0.5-1.3 mg/dL Glomerular Filtration Rate Calc 86 >90 mL/min Random Glucose 98 70-105 mg/dL Total Calcium 9.2 8.5-10.1 mg/dL Phosphorus Level 4.1 2.5-4.9 mg/dL Magnesium Level 1.90 1.80-2.40 mg/dL Total Bilirubin 4.7 H 0.2-1.0 mg/dL Aspartate Amino Transf (AST/SGOT) 164 H 10-37 U/L Alanine Aminotransferase (ALT/SGPT) 554 H 12-78 U/L Alkaline Phosphatase 237 H 50-136 U/L Total Protein 6.9 6.0-8.3 g/dL Albumin 3.6 3.5-5.0 g/dL Ammonia 15 11-32 umol/L Urine Color YELLOW YELLOW Urine Appearance CLEAR CLEAR Urine pH 5.0 5.0-8.0 Urine Specific [place] 1.007 1.001-1.031 Urine Protein NEGATIVE NEGATIVE mg/dL Urine Glucose (UA) NEGATIVE NEGATIVE mg/dL Urine Ketones NEGATIVE NEGATIVE mg/dL Urine Occult Blood NEGATIVE NEGATIVE Urine Nitrate NEGATIVE NEGATIVE Urine Bilirubin 0.5 H NEGATIVE mg/dL Urine Urobilinogen 2.0 H 0.2-1.0 mg/dL Urine Leukocyte Esterase NEGATIVE NEGATIVE Jesús/uL Urine RBC 0-1 0-1 /HPF Urine WBC 2-5 H 0-1 /HPF Urine Bacteria None None Seen /HPF White Cell Morphology Comment See comments Direct Bilirubin 3.6 H 0.0-0.3 mg/dL Lipase 49 16-77 U/L Current Medications Medications (Trade) Dose Ordered Sig/Jong Route PRN Reason Start Time Stop Time Status Last Admin Dose Admin Acetaminophen (TYLenol 325MG TAB) 650 mg Q6H PRN PO TEMPERATURE GREATER THAN 101.5 11/09/24 21:00 12/09/24 20:59 Famotidine (Pepcid 20mg Tab) 20 mg DAILY PO 11/10/24 09:00 12/10/24 08:59 Hydralazine HCl (APRESOLine 20MG INJ) 10 mg Q6H PRN IV For:SBP above 160;DBP above 90 11/09/24 21:00 12/09/24 20:59 Lactulose (Constulose 20gm/ 30ml Udcup) 20 gm BID PO 11/09/24 21:00 12/09/24 20:59 11/09/24 21:32 20 GM Morphine Sulfate (morPHINE 2MG SYG) 2 mg Q4H PRN IVP SEVERE PAIN (7-10) 11/09/24 21:00 11/16/24 20:59 Ondansetron HCl (zoFRAN 4MG INJ) 4 mg Q6H PRN IV NAUSEA/VOMITING 11/09/24 21:00 12/09/24 20:59 Diagnostics / Radiology: [COPY/PASTE HERE IF NO REPORTS PLEASE DELETE SECTION] Assessment: Cholelithiasis Abnormal LFTs Plan: HIDA scan Surgical consult Trend LFTs ERCP not warranted given negative MRCP. RUDY RAMON ADMISSIONS NURSE November 10, 2024 08:14
[2024-11-10] MEDS: FAMOTIDINE 20MG TAB PO SCH (09:02)
[2024-11-10 09:47] LABS: ACETAMINOPHEN < 1 mcg/mL (10-29); ALCOHOL, BLOOD < 3 mg/dL (0-10); SALICYLATE < 2.8 mg/dL (2.8-20.0)
[2024-11-10 10:22] LABS: HIV 1&2 ANTIBODY Non-Reactive (Negative); HIV-1 p24 Antigen Non-Reactive (Negative)
--- NOTE | 2024-11-10 11:02 | HMCIMG ---
Exam Type: MRI OF THE ABDOMEN cholangiopancreatography Comparison Study: none History: eval for cbd stone FINDINGS: No evidence of nephro or ureterolithiasis is found. No hydronephrosis or ureteral dilatation is seen. The stomach is unremarkable. There is no evidence of gastric dilatation. No blastic thickening is noted to suggest inflammation or tumor. There is no perforation. There is no gastric outlet obstruction. There is no ulceration. The spleen is unremarkable. It is not enlarged. The pancreas shows normal anatomy. It is not fatty replaced. It shows no lesions. The pancreatic duct is not dilated. There is evidence of cholelithiasis. No evidence of acute or chronic inflammation is seen. The adrenal glands are unremarkable. There is no enlargement. No lesions are noted. The liver is unremarkable. It shows no focal masses. The visualized segments of large and small bowel appear unremarkable. The bony and vascular structures are unremarkable for the patient's age. MRCP is unremarkable. The common bile duct is well as the intrahepatic bile ducts are well seen without filling defects to suggest calculi. There are no areas of dilatation or abrupt cutoffs. IMPRESSION: Cholelithiasis. No choledocholithiasis.
--- NOTE | 2024-11-10 13:59 | NUR ---
DCP: HOME Pt lives alone in his own home. Pt works at [employer], is very active and drives. Pt reports he is independent of all ADLS, no DME or in home care services. PCP is Edmond Bagley and uses [facility] for rx. Sister Urmila Valenzuela [phone] is er contact Addendum: 11/10/24 at 1428 by ALLYSSA COLEMAN Amended: Links added.
--- NOTE | 2024-11-10 17:31 | PN ---
[facility] PROGRESS NOTE Date of Service: November 10, 2024 Time of Service: 17:23 SUBJECTIVE: 11/10 patient seen at bedside, no acute events overnight. Been afebrile, hemodynamically stable, tachycardia is improving he is saturating well on room air. MRCP is pending, we will follow up with the results. Further recommendations per GI. LFTs are trending back to normal, remainder of his labs are relatively unremarkable. We will expand differential for elevated LFTs, we will order acetaminophen, salicylate levels, HIV, hepatitis panel, blood alcohol level and a drug panel and follow up. REVIEW OF SYSTEMS CONSTITUTIONAL: Denies fevers, chills, or night sweats. No unintentional weight loss reported. NEUROLOGICAL: Denies headache, amaurosis fugax, motor weakness, sensory deficit, vertigo/spinning sensation, gait abnormalities, or tremors. ENT: No hearing loss, otalgia, otorrhea, rhinitis, rhinorrhea, hoarseness, or sore throat. CARDIOVASCULAR: Denies any exertional angina, dyspnea on exertion, orthopnea, paroxysmal nocturnal dyspnea, palpitations, life-threatening arrhythmias, claudication. PULMONARY: Denies any shortness of breath, cough, phlegm/sputum, hemoptysis, pleuritic chest pain. SLEEP: Denies morning headaches, daytime somnolence or napping. Denies difficulty falling asleep, staying asleep, waking from sleep. Denies knowledge of snoring. GASTROINTESTINAL: Denies any type of dysphagia to either liquids or solids. Denies nausea, vomiting, pyrosis, early satiety, abdominal pain, diarrhea, constipation, or changes in stool consistency or caliber. Denies coffee-ground e mesis, hematemesis, hematochezia, or melanotic stools. GENITOURINARY: Denies frequency, urgency, nocturia, hematuria or incontinence (Storage/Irritative symptoms.) Low urinary stream, straining to void, urinary intermittency or hesitancy, splitting of the voiding stream, terminal dribbling. ENDOCRINOLOGIC: Denies polyuria, polydipsia, polyphagia or heat/cold intolerances. HEMATOLOGIC: Denies thrombophilia/previous clots, or coagulopathy/bleeding disorders. ONCOLOGIC: Denies personal history of malignancy. DERMATOLOGIC: Denies rashes or pruritus. PSYCHIATRIC: Denies any suicidal or homicidal ideation. Denies hallucinations. PHYSICAL EXAM GENERAL APPEARANCE: The patient is awake, alert, and oriented, in no acute cardiopulmonary distress. NEUROLOGICAL: Cranial nerves II-XII grossly intact. Motor is 5/5 in bilateral upper and lower extremities proximal to distal. No sensory deficits. HEENT: Face is symmetric. Pupils are equal and reactive. Extraocular movements are intact. NECK: Supple. No JVD. No thyromegaly. No submental, submandibular, pre-/posta uricular, occipital or supraclavicular lymphadenopathy. CHEST: Normal chest expansion. No Telemetry. LUNGS: Absence of any rales, rhonchi or any wheezing. CARDIOVASCULAR: Regular. S1 and S2 normal. No appreciable rubs, murmurs or gallops. ABDOMEN: Soft, nontender, and nondistended. There is no rebound, voluntary guarding, or rigidity. : Deferred. No Weber. EXTREMITIES: Non-edematous and not cyanotic. No clubbing. Good capillary refill. SKIN: No skin breakdown. Vital Signs (last 8hr) Date Time Temp Pulse Resp B/P (MAP) Pulse Ox O2 Delivery O2 Flow Rate FiO2 11/10/24 16:05 98.2 78 18 135/82 98 Room Air* 0 21 LABS: Laboratory: Test 11/10/24 16:17 11/10/24 09:22 11/10/24 07:13 11/09/24 21:35 Range/Units Stool Lactoferrin (DIDI) POSITIVE H NEGATIVE Salicylates Level < 2.8 L 2.8-20.0 mg/dL Acetaminophen Level < 1 L 10-29 mcg/mL Serum Alcohol < 3 0-10 mg/dL HIV (1&2) Antibody Non-Reactive Negative HIV P24 Antigen, Qualitative Non-Reactive Negative White Blood Count 4.8 # 4.8-10.8 K/uL Red Blood Count 5.34 4.50-6.20 MIL/uL Hemoglobin 15.3 14.0-18.0 g/dL Hematocrit 46.1 42-54 % Mean Corpuscular Volume 86.3 79-99 fL Mean Corpuscular Hemoglobin 28.7 27.0-33.0 pg Mean Corpuscular Hemoglobin Concent 33.2 32.0-36.0 g/dL Red Cell Distribution Width 14.0 11.0-15.5 % Platelet Count 141 130-400 K/uL Mean Platelet Volume 9.6 7.5-10.5 fL Immature Granulocyte % (Auto) 0.4 0-1 % Neutrophils (%) (Auto) 68.0 40.0-77.0 % Lymphocytes (%) (Auto) 17.0 L 21.0-51.0 % Monocytes (%) (Auto) 13.2 H 3.0-13.0 % Eosinophils (%) (Auto) 0.8 0.0-8.0 % Basophils (%) (Auto) 0.6 0.0-5.0 % Neutrophils # (Auto) 3.2 1.8-7.7 K/uL Lymphocytes # (Auto) 0.8 L 1.0-4.8 K/uL Monocytes # (Auto) 0.6 0.1-1.0 K/uL Eosinophils # (Auto) 0.04 0.00-0.70 K/uL Basophils # (Auto) 0.03 0.00-0.20 K/uL Absolute Immature Granulocyte (auto 0.02 0-1 K/uL Nucleated Red Blood Cells 0.0 0.0-0.19 % Prothrombin Time 10.7 9.6-11.6 SEC Prothromb Time International Ratio 1.01 0.85-1.15 Activated Partial Thromboplast Time 25.8 L 26.3-35.5 SEC Sodium Level 142 136-145 mmol/L Potassium Level 4.1 3.5-5.1 mmol/L Chloride Level 105 101-111 mmol/L Carbon Dioxide Level 25 21-32 mmol/L Blood Urea Nitrogen 16 7-18 mg/dL Creatinine 1.1 0.5-1.3 mg/dL Glomerular Filtration Rate Calc 86 >90 mL/min Random Glucose 98 70-105 mg/dL Total Calcium 9.2 8.5-10.1 mg/dL Phosphorus Level 4.1 2.5-4.9 mg/dL Magnesium Level 1.90 1.80-2.40 mg/dL Total Bilirubin 4.7 H 0.2-1.0 mg/dL Aspartate Amino Transf (AST/SGOT) 164 H 10-37 U/L Alanine Aminotransferase (ALT/SGPT) 554 H 12-78 U/L Alkaline Phosphatase 237 H 50-136 U/L Total Protein 6.9 6.0-8.3 g/dL Albumin 3.6 3.5-5.0 g/dL Ammonia 15 11-32 umol/L Test 11/09/24 18:41 11/09/24 18:40 Range/Units Urine Color YELLOW YELLOW Urine Appearance CLEAR CLEAR Urine pH 5.0 5.0-8.0 Urine Specific [place] 1.007 1.001-1.031 Urine Protein NEGATIVE NEGATIVE mg/dL Urine Glucose (UA) NEGATIVE NEGATIVE mg/dL Urine Ketones NEGATIVE NEGATIVE mg/dL Urine Occult Blood NEGATIVE NEGATIVE Urine Nitrate NEGATIVE NEGATIVE Urine Bilirubin 0.5 H NEGATIVE mg/dL Urine Urobilinogen 2.0 H 0.2-1.0 mg/dL Urine Leukocyte Esterase NEGATIVE NEGATIVE Jesús/uL Urine RBC 0-1 0-1 /HPF Urine WBC 2-5 H 0-1 /HPF Urine Bacteria None None Seen /HPF White Cell Morphology Comment See comments Direct Bilirubin 3.6 H 0.0-0.3 mg/dL Lipase 49 16-77 U/L Current Medications Medications (Trade) Dose Ordered Sig/Jong Route PRN Reason Start Time Stop Time Status Last Admin Dose Admin Acetaminophen (TYLenol 325MG TAB) 650 mg Q6H PRN PO TEMPERATURE GREATER THAN 101.5 11/09/24 21:00 12/09/24 20:59 Famotidine (Pepcid 20mg Tab) 20 mg DAILY PO 11/10/24 09:00 12/10/24 08:59 11/10/24 09:02 20 MG Hydralazine HCl (APRESOLine 20MG INJ) 10 mg Q6H PRN IV For:SBP above 160;DBP above 90 11/09/24 21:00 12/09/24 20:59 Lactulose (Constulose 20gm/ 30ml Udcup) 20 gm BID PO 11/09/24 21:00 12/09/24 20:59 11/09/24 21:32 20 GM Morphine Sulfate (morPHINE 2MG SYG) 2 mg Q4H PRN IVP SEVERE PAIN (7-10) 11/09/24 21:00 11/16/24 20:59 Ondansetron HCl (zoFRAN 4MG INJ) 4 mg Q6H PRN IV NAUSEA/VOMITING 11/09/24 21:00 12/09/24 20:59 DIAGNOSTICS / RADIOLOGY: [ ] ASSESSMENT: Liver cirrhosis, POA, by abdominal ultrasound which reads" liver parenchymal disease, "on 11/09/2024 Transaminitis Elevated total bilirubin Hypertension Hyperlipidemia PLAN: MRCP pending will follow up Salicylate, acetaminophen levels pending HIV ordered will follow up Hepatitis ordered, will follow up GI consulted, appreciate recommendations Disposition: pending improvement in clinical status ADRIANA ROSADO MD November 10, 2024 17:31
--- NOTE | 2024-11-10 17:52 | NUR ---
SPOKE TO DR GIRALDO IS LAB RESULTS GIVEN IS AWARE OF CONSULT WILL COME SEE PT.
[2024-11-10] MEDS: ZOSYN 3.375GM +NS 50ML IV SCH (19:15)
[2024-11-10] MEDS ORDERED: OMEP20CA12 PO (20:12)
[2024-11-10] MEDS ORDERED: LOSA25TA41 PO (20:12)
[2024-11-10] MEDS ORDERED: LOSA50TA64 PO (20:12)
[2024-11-10] MEDS ORDERED: ROSU10TA72 PO (20:12)
--- NOTE | 2024-11-10 20:58 | HMCIMG ---
HEPATOBILIARY SCAN INDICATION: Right upper abdominal pain COMPARISON: None RADIOPHARMACEUTICAL: Tc99m Choletec DOSE: 7.0 mCi given IV. TECHNIQUE: Abdominal functional images were obtained and submitted for interpretation. FINDINGS: Functional images obtained up to 4 hours showed normal hepato-intestinal transit time, but no accumulation of activity within the gallbladder within normal limits. IMPRESSION: Findings suggesting acute cholecystitis.
--- NOTE | 2024-11-10 21:08 | NUR ---
REPORT GIVEN TO CLEO PATTERSON AT 2100 PT AAOX4 STABLE NO DISTRESS NO C/O PAIN NOW , VITALS WNL. PT TRANSFERRED BY W/C WITH PERSONAL BELONGINGS BY IVANA JEFFREY.
[2024-11-10 21:10] VITALS: BP 162/89; PULSE 72; RESP 18
[2024-11-10 21:15] VITALS: O2SAT 98
--- NOTE | 2024-11-10 21:15 | NUR ---
ADMIT PT ADMITTED TO ROOM 320, AAOX4. DENIES OF ABDOMINAL PAINS AT THIS TIME. ADMISSION CARE DONE. V/S MONITORED, STABLE. ADMISSION DATA BASE COMPLETED. KEPT NPO ORDERED. ORIENTED TO ROOM AND UNIT. PT REQUESTED TO SHOWER, PCP IN TO ASSIST PT. IN FOR MORE CARE AND MANAGEMENT. Addendum: 11/10/24 at 2247 by CLEO STRATTON RN RN Amended: Links added.
[2024-11-10 23:47] VITALS: BP 129/74; PULSE 55; RESP 16; TEMP 98
[2024-11-11] VITALS (7 sets, daily range): BP systolic 124–157; BP diastolic 70–95; PULSE 60–86; RESP 16–22; TEMP 97.6–98; O2SAT 95–100
[2024-11-11] MEDS: ZOSYN 3.375GM +NS 50ML IV SCH (04:45)
[2024-11-11 06:30] LABS: BASOPHILS # (AUTO) 0.04 K/uL (0.00-0.20); EOSINOPHILS # (AUTO) 0.08 K/uL (0.00-0.70); EOSINOPHILS % (AUTO) 1.9 % (0.0-8.0); HEMATOCRIT 43.7 % (42-54); IMMATURE GRANULOCYTE ABSOLUTE 0.03 K/uL (0-1); LYMPHOCYTES # (AUTO) 0.8 K/uL (1.0-4.8); LYMPHOCYTES % (AUTO) 18.4 % (21.0-51.0); MEAN CORPUSCULAR HEMOGLOBIN 28.8 pg (27.0-33.0); MEAN CORPUSCULAR HGB CONC 33.2 g/dL (32.0-36.0); MEAN CORPUSCULAR VOLUME 86.9 fL (79-99); MONOCYTES # (AUTO) 0.5 K/uL (0.1-1.0); MONOCYTES % (AUTO) 12.2 % (3.0-13.0); NEUTROPHILS # (AUTO) 2.8 K/uL (1.8-7.7); NEUTROPHILS % (AUTO) 65.8 % (40.0-77.0); PLATELET COUNT (AUTO) 123 K/uL (130-400); RED BLOOD CELL COUNT(AUTO) 5.03 MIL/uL (4.50-6.20); RED CELL DISTRIBUTION WIDTH 13.9 % (11.0-15.5); WHITE BLOOD COUNT (AUTO) 4.2 K/uL (4.8-10.8)
[2024-11-11 07:00] LABS: ALBUMIN 3.4 g/dL (3.5-5.0); BILIRUBIN,TOTAL 6.2 mg/dL (0.2-1.0); CREATININE 0.9 mg/dL (0.5-1.3); PHOSPHORUS 4.3 mg/dL (2.5-4.9); POTASSIUM 4.2 mmol/L (3.5-5.1); TOTAL PROTEIN, SERUM 6.6 g/dL (6.0-8.3)
--- NOTE | 2024-11-11 07:10 | NUR ---
REPORT PT SLEPT AT INTERVALS DURING THE SHIFT. NO DISTRESS NOTED. NO CONCERNS VERBALIZED. REPORT GIVEN TO AM NURSE JANETTE. NURSE'S ROUNDS DONE. FOR MORE CARE AND MANAGEMENT.
--- NOTE | 2024-11-11 13:53 | PN ---
[facility] PROGRESS NOTE Date of Service: November 11, 2024 Time of Service: 13:43 SUBJECTIVE: 11/10 patient seen at bedside, no acute events overnight. Been afebrile, hemodynamically stable, tachycardia is improving he is saturating well on room air. MRCP is pending, we will follow up with the results. Further recommendations per GI. LFTs are trending back to normal, remainder of his labs are relatively unremarkable. We will expand differential for elevated LFTs, we will order acetaminophen, salicylate levels, HIV, hepatitis panel, blood alcohol level and a drug panel and follow up. 11/11 patient seen at bedside, no acute events overnight. He has been afebrile, hemodynamically stable, saturating well on room air. MRCP showing cholelithiasis with no evidence of choledocholithiasis. T bili increased from 4.7 up to 6.2, LFT stable, similar to yesterday. General surgery does not believe it is acute cholecystitis and that is underlying liver disease however platelets and INR are normal which is not consistent with cirrhosis. This appears to be acute in nature, we will consult GI for possible ERCP as there may be sphincter dysfunction given the size of the common bile duct and the uptrending T bili. REVIEW OF SYSTEMS 12 point ROS negative unless noted in HPI PHYSICAL EXAM GENERAL APPEARANCE: The patient is awake, alert, and oriented, in no acute cardiopulmonary distress. NEUROLOGICAL: Cranial nerves II-XII grossly intact. Motor is 5/5 in bilateral upper and lower extremities proximal to distal. No sensory deficits. HEENT: Face is symmetric. Pupils are equal and reactive. Extraocular movements are intact. NECK: Supple. No JVD. No thyromegaly. No submental, submandibular, pre- /postauricular, occipital or supraclavicular lymphadenopathy. CHEST: Normal chest expansion. No Telemetry. LUNGS: Absence of any rales, rhonchi or any wheezing. CARDIOVASCULAR: Regular. S1 and S2 normal. No appreciable rubs, murmurs or gallops. ABDOMEN: Soft, nontender, and nondistended. There is no rebound, voluntary guarding, or rigidity. : Deferred. No Weber. EXTREMITIES: Non-edematous and not cyanotic. No clubbing. Good capillary refill. SKIN: No skin breakdown. Vital Signs (last 8hr) Date Time Temp Pulse Resp B/P (MAP) Pulse Ox O2 Delivery O2 Flow Rate FiO2 11/11/24 11:38 98.1 86 20 157/95 99 Room Air 21 11/11/24 07:49 97.9 74 22 125/70 100 Room Air 21 LABS: Laboratory: Test 11/11/24 06:10 11/10/24 16:17 11/10/24 09:22 11/10/24 07:13 Range/Units White Blood Count 4.2 L 4.8-10.8 K/uL Red Blood Count 5.03 4.50-6.20 MIL/uL Hemoglobin 14.5 14.0-18.0 g/dL Hematocrit 43.7 42-54 % Mean Corpuscular Volume 86.9 79-99 fL Mean Corpuscular Hemoglobin 28.8 27.0-33.0 pg Mean Corpuscular Hemoglobin Concent 33.2 32.0-36.0 g/dL Red Cell Distribution Width 13.9 11.0-15.5 % Platelet Count 123 L 130-400 K/uL Mean Platelet Volume 9.1 7.5-10.5 fL Immature Granulocyte % (Auto) 0.7 0-1 % Neutrophils (%) (Auto) 65.8 40.0-77.0 % Lymphocytes (%) (Auto) 18.4 L 21.0-51.0 % Monocytes (%) (Auto) 12.2 3.0-13.0 % Eosinophils (%) (Auto) 1.9 0.0-8.0 % Basophils (%) (Auto) 1.0 0.0-5.0 % Neutrophils # (Auto) 2.8 1.8-7.7 K/uL Lymphocytes # (Auto) 0.8 L 1.0-4.8 K/uL Monocytes # (Auto) 0.5 0.1-1.0 K/uL Eosinophils # (Auto) 0.08 0.00-0.70 K/uL Basophils # (Auto) 0.04 0.00-0.20 K/uL Absolute Immature Granulocyte (auto 0.03 0-1 K/uL Nucleated Red Blood Cells 0.0 0.0-0.19 % Sodium Level 141 136-145 mmol/L Potassium Level 4.2 3.5-5.1 mmol/L Chloride Level 103 101-111 mmol/L Carbon Dioxide Level 29 21-32 mmol/L Blood Urea Nitrogen 18 7-18 mg/dL Creatinine 0.9 0.5-1.3 mg/dL Glomerular Filtration Rate Calc 110 >90 mL/min Random Glucose 89 70-105 mg/dL Total Calcium 9.3 8.5-10.1 mg/dL Phosphorus Level 4.3 2.5-4.9 mg/dL Magnesium Level 2.00 1.80-2.40 mg/dL Total Bilirubin 6.2 #H 0.2-1.0 mg/dL Aspartate Amino Transf (AST/SGOT) 168 H 10-37 U/L Alanine Aminotransferase (ALT/SGPT) 512 H 12-78 U/L Alkaline Phosphatase 239 H 50-136 U/L Total Protein 6.6 6.0-8.3 g/dL Albumin 3.4 L 3.5-5.0 g/dL Stool Lactoferrin (DIDI) POSITIVE H NEGATIVE Salicylates Level < 2.8 L 2.8-20.0 mg/dL Acetaminophen Level < 1 L 10-29 mcg/mL Serum Alcohol < 3 0-10 mg/dL HIV (1&2) Antibody Non-Reactive Negative HIV P24 Antigen, Qualitative Non-Reactive Negative Prothrombin Time 10.7 9.6-11.6 SEC Prothromb Time International Ratio 1.01 0.85-1.15 Activated Partial Thromboplast Time 25.8 L 26.3-35.5 SEC Test 11/09/24 21:35 11/09/24 18:41 11/09/24 18:40 Range/Units Ammonia 15 11-32 umol/L Urine Color YELLOW YELLOW Urine Appearance CLEAR CLEAR Urine pH 5.0 5.0-8.0 Urine Specific [place] 1.007 1.001-1.031 Urine Protein NEGATIVE NEGATIVE mg/dL Urine Glucose (UA) NEGATIVE NEGATIVE mg/dL Urine Ketones NEGATIVE NEGATIVE mg/dL Urine Occult Blood NEGATIVE NEGATIVE Urine Nitrate NEGATIVE NEGATIVE Urine Bilirubin 0.5 H NEGATIVE mg/dL Urine Urobilinogen 2.0 H 0.2-1.0 mg/dL Urine Leukocyte Esterase NEGATIVE NEGATIVE Jesús/uL Urine RBC 0-1 0-1 /HPF Urine WBC 2-5 H 0-1 /HPF Urine Bacteria None None Seen /HPF White Cell Morphology Comment See comments Direct Bilirubin 3.6 H 0.0-0.3 mg/dL Lipase 49 16-77 U/L Current Medications Medications (Trade) Dose Ordered Sig/Jong Route PRN Reason Start Time Stop Time Status Last Admin Dose Admin Acetaminophen (TYLenol 325MG TAB) 650 mg Q6H PRN PO TEMPERATURE GREATER THAN 101.5 11/09/24 21:00 12/09/24 20:59 Famotidine (Pepcid 20mg Tab) 20 mg DAILY PO 11/10/24 09:00 12/10/24 08:59 11/11/24 08:30 20 MG Hydralazine HCl (APRESOLine 20MG INJ) 10 mg Q6H PRN IV For:SBP above 160;DBP above 90 11/09/24 21:00 12/09/24 20:59 Lactulose (Constulose 20gm/ 30ml Udcup) 20 gm BID PO 11/09/24 21:00 12/09/24 20:59 11/11/24 08:30 20 GM Morphine Sulfate (morPHINE 2MG SYG) 2 mg Q4H PRN IVP SEVERE PAIN (7-10) 11/09/24 21:00 11/16/24 20:59 Ondansetron HCl (zoFRAN 4MG INJ) 4 mg Q6H PRN IV NAUSEA/VOMITING 11/09/24 21:00 12/09/24 20:59 Piperacillin Sod/ Tazobactam Sod (Zosyn 3.375gm+NS 50ml) 3.375 gm ONCE IV 11/10/24 18:00 11/10/24 22:00 DC 11/10/24 19:15 3.375 GM Piperacillin Sod/ Tazobactam Sod (Zosyn 3.375gm+NS 50ml) 3.375 gm ZOSY8 IV 11/11/24 05:00 11/21/24 04:59 11/11/24 13:15 3.375 GM DIAGNOSTICS / RADIOLOGY: [ ] ASSESSMENT: Liver cirrhosis, questionable, normal platelets, normal INR POA, Abdominal ultrasound reads" liver parenchymal disease, "on 11/09/2024 Dilated CBD at 9mm Transaminitis Elevated total bilirubin Hypertension Hyperlipidemia PLAN: Salicylate, acetaminophen levels normal HIV negative Hepatitis ordered, will follow up General Surgery consulted, appreciate recommendations GI consulted, appreciate recommendations Disposition: pending improvement in clinical status, possible ERCP, GI recommendations, General Surgery recommendations ADRIANA ROSADO MD November 11, 2024 13:53
--- NOTE | 2024-11-11 20:40 | NUR ---
[facility] SHIFT ASSESSMENT DONE, PLEASE REFER TO CHART. DUE MEDS ADMINISTERED, TOLERATED WELL. PT REFUSED LACTULOSE DOSE TONIGHT, VERBALIZES HAVING HAD 4 BOWEL MOVEMENTS ALREADY DURING THE DAY. KEPT RESTED IN BED. CALL LIGHT WITHIN REACH.
--- NOTE | 2024-11-11 23:59 | CONS ---
HISTORY OF PRESENT ILLNESS: The patient is a 39-year-old white male who has been having abdominal pain on and off since May. He has had workup with endoscopy as an outpatient with no significant findings according to the patient. The patient was admitted with elevated liver function tests and some right lower quadrant abdominal pain and I have been asked to see the patient for the above. SOCIAL HISTORY: Negative for IV drugs. He drinks socially. 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 PAST MEDICAL HISTORY: The patient denies any other past medical history except for hypertension. ALLERGIES: No known drug allergies. PHYSICAL EXAMINATION: GENERAL: The patient is awake, alert and oriented. He is in no acute distress. He is afebrile. VITAL SIGNS: Stable. HEENT: He has scleral icterus. CHEST: Clear. HEART: Regular rate and rhythm. ABDOMEN: Soft, nontender. No guarding. No rebound. Positive bowel sounds. EXTREMITIES: Show no edema. LABORATORY DATA: Bilirubin is 6.2 total today, up from 4.7 yesterday. LFTs were elevated across the board with a 168 AST and ALT of 512 and an alkaline phosphatase of 239. CBC is unremarkable. Coags are within normal limits. DIAGNOSTIC DATA: Ultrasound of the abdomen shows contracted gallbladder. No gallstones or ductal dilatation. MRCP shows unremarkable MRCP. The common duct is without defects and no evidence of acute cholecystitis. HIDA scan was done, which shows nonvisualization of the gallbladder, although this is nondiagnostic in the setting of primary liver disease. ASSESSMENT AND PLAN: Doubt the etiology of his elevated liver function tests are secondary to his gallstones and do not feel surgical intervention at this time would be helpful. Plan is to follow up with GI and further medical workup. We will follow with you. Diet as tolerated. TID: [id number] RECEIPT: [id number]
[2024-11-12] VITALS (8 sets, daily range): BP systolic 120–154; BP diastolic 73–95; PULSE 55–86; RESP 16–20; TEMP 98.1–98.4; O2SAT 98–99
--- NOTE | 2024-11-12 04:41 | NUR ---
MEDS PT SLEPT AT INTERVALS DURING THE SHIFT. NO DISTRESS NOTED. NO CONCERNS VERBALIZED. DUE IV ZOSYN HUNG. KEPT RESTED IN BED. CALL LIGHT WITHIN REACH. FOR MORE CARE.
[2024-11-12 06:07] LABS: BASOPHILS # (AUTO) 0.05 K/uL (0.00-0.20); BASOPHILS % (AUTO) 1.2 % (0.0-5.0); EOSINOPHILS # (AUTO) 0.12 K/uL (0.00-0.70); EOSINOPHILS % (AUTO) 2.8 % (0.0-8.0); HEMATOCRIT 43.1 % (42-54); IMMATURE GRANULOCYTE ABSOLUTE 0.02 K/uL (0-1); LYMPHOCYTES # (AUTO) 0.9 K/uL (1.0-4.8); LYMPHOCYTES % (AUTO) 21.3 % (21.0-51.0); MEAN CORPUSCULAR HEMOGLOBIN 28.1 pg (27.0-33.0); MEAN CORPUSCULAR HGB CONC 32.7 g/dL (32.0-36.0); MONOCYTES # (AUTO) 0.7 K/uL (0.1-1.0); MONOCYTES % (AUTO) 15.2 % (3.0-13.0); NEUTROPHILS # (AUTO) 2.5 K/uL (1.8-7.7); PLATELET COUNT (AUTO) 127 K/uL (130-400); RED BLOOD CELL COUNT(AUTO) 5.01 MIL/uL (4.50-6.20); RED CELL DISTRIBUTION WIDTH 13.7 % (11.0-15.5); WHITE BLOOD COUNT (AUTO) 4.3 K/uL (4.8-10.8)
[2024-11-12 06:33] LABS: ALBUMIN 3.2 g/dL (3.5-5.0); BILIRUBIN,TOTAL 6.5 mg/dL (0.2-1.0); POTASSIUM 3.9 mmol/L (3.5-5.1); TOTAL PROTEIN, SERUM 6.4 g/dL (6.0-8.3)
--- NOTE | 2024-11-12 11:13 | PN ---
Patient awake alert and oriented in no acute distress Patient complains of mild itching. Tolerating p.o. Afebrile Scleral icterus Abdomen is soft nontender Bilirubin continues to rise for endoscopic ultrasound in a.m. Reconsult as needed. Vitals/Labs Vital Signs Date Time Temp Pulse Resp B/P (MAP) Pulse Ox O2 Delivery O2 Flow Rate FiO2 11/12/24 07:49 98.2 86 20 136/80 99 Room Air 21 11/11/24 20:40 0 Laboratory Tests 11/12/24 05:49 Medications Current Medications Sodium Chloride 1,000 ml @ 0 mls/hr ONCE ONCE IV Last administered on 11/09/24 19:50; Start 11/09/24 at 18:30; Stop 11/09/24 at 18:31; Status DC Morphine Sulfate 4 mg ONCE ONCE IVP Last administered on 11/09/24at 19:49; Start 11/09/24 at 18:30; Stop 11/09/24 at 18:31; Status DC Ondansetron HCl 4 mg ONCE ONCE IVP Last administered on 11/09/24at 19:49; Start 11/09/24 at 18:30; Stop 11/09/24 at 18:31; Status DC Lactulose 20 gm BID PO Last administered on 11/11/24at 08:30; Start 11/09/24 at 21:00; Stop 12/09/24 at 20:59 Acetaminophen 650 mg Q6H PRN PO; Start 11/09/24 at 21:00; Stop 12/09/24 at 20:59 Famotidine 20 mg DAILY PO Last administered on 11/12/24at 08:40; Start 11/10/24 at 09:00; Stop 12/10/24 at 08:59 Hydralazine HCl 10 mg Q6H PRN IV; Start 11/09/24 at 21:00; Stop 12/09/24 at 20:59 Morphine Sulfate 2 mg Q4H PRN IVP; Start 11/09/24 at 21:00; Stop 11/16/24 at 20:59 Ondansetron HCl 4 mg Q6H PRN IV; Start 11/09/24 at 21:00; Stop 12/09/24 at 20:59 Piperacillin Sod/ Tazobactam Sod 3.375 gm ZOSY8 IV Last administered on 11/12/24at 04:41; Start 11/11/24 at 05:00; Stop 11/21/24 at 04:59 Piperacillin Sod/ Tazobactam Sod 3.375 gm ONCE IV Last administered on 11/10/24at 19:15; Start 11/10/24 at 18:00; Stop 11/10/24 at 22:00; Status DC Diphenhydramine HCl 25 mg Q8H PRN PO; Start 11/12/24 at 11:00; Stop 12/12/24 at 10:59 NAMAN GIRALDO MD November 12, 2024 11:13
[2024-11-12] MEDS: DiphenhydrAMINE HCL 25 MG CAPSULE PO PRN (11:15)
--- NOTE | 2024-11-12 14:17 | PN ---
[facility] PROGRESS NOTE Date of Service: November 12, 2024 Time of Service: 14:07 SUBJECTIVE: 11/10 patient seen at bedside, no acute events overnight. Been afebrile, hemodynamically stable, tachycardia is improving he is saturating well on room air. MRCP is pending, we will follow up with the results. Further recommendations per GI. LFTs are trending back to normal, remainder of his labs are relatively unremarkable. We will expand differential for elevated LFTs, we will order acetaminophen, salicylate levels, HIV, hepatitis panel, blood alcohol level and a drug panel and follow up. 11/11 patient seen at bedside, no acute events overnight. He has been afebrile, hemodynamically stable, saturating well on room air. MRCP showing cholelithiasis with no evidence of choledocholithiasis. T bili increased from 4.7 up to 6.2, LFT stable, similar to yesterday. General surgery does not believe it is acute cholecystitis and that is underlying liver disease however platelets and INR are normal which is not consistent with cirrhosis. This appears to be acute in nature, we will consult GI for possible ERCP as there may be sphincter dysfunction given the size of the common bile duct and the uptrending T bili. 11/12 patient seen at bedside, no acute events overnight. T bili continues to up trend, LFTs still abnormal. Discussed case with GI who recommends an EUS tomorrow determine if an ERCP we will be necessary. Patient will be made NPO after midnight REVIEW OF SYSTEMS 12 point ROS negative unless noted in HPI PHYSICAL EXAM GENERAL APPEARANCE: The patient is awake, alert, and oriented, in no acute cardiopulmonary distress. NEUROLOGICAL: Cranial nerves II-XII grossly intact. Motor is 5/5 in bilateral upper and lower extremities proximal to distal. No sensory deficits. HEENT: Face is symmetric. Pupils are equal and reactive. Extraocular movements are intact. NECK: Supple. No JVD. No thyromegaly. No submental, submandibular, pre- /postauricular, occipital or supraclavicular lymphadenopathy. CHEST: Normal chest expansion. No Telemetry. LUNGS: Absence of any rales, rhonchi or any wheezing. CARDIOVASCULAR: Regular. S1 and S2 normal. No appreciable rubs, murmurs or gallops. ABDOMEN: Soft, nontender, and nondistended. There is no rebound, voluntary guarding, or rigidity. : Deferred. No Weber. EXTREMITIES: Non-edematous and not cyanotic. No clubbing. Good capillary refill. SKIN: No skin breakdown. Vital Signs (last 8hr) Date Time Temp Pulse Resp B/P (MAP) Pulse Ox O2 Delivery O2 Flow Rate FiO2 11/12/24 11:30 98.4 64 20 154/83 98 Room Air 21 11/12/24 07:49 98.2 86 20 136/80 99 Room Air 21 LABS: Laboratory: Test 11/12/24 05:49 11/11/24 06:10 11/10/24 16:17 Range/Units White Blood Count 4.3 L 4.8-10.8 K/uL Red Blood Count 5.01 4.50-6.20 MIL/uL Hemoglobin 14.1 14.0-18.0 g/dL Hematocrit 43.1 42-54 % Mean Corpuscular Volume 86.0 79-99 fL Mean Corpuscular Hemoglobin 28.1 27.0-33.0 pg Mean Corpuscular Hemoglobin Concent 32.7 32.0-36.0 g/dL Red Cell Distribution Width 13.7 11.0-15.5 % Platelet Count 127 L 130-400 K/uL Mean Platelet Volume 9.6 7.5-10.5 fL Immature Granulocyte % (Auto) 0.5 0-1 % Neutrophils (%) (Auto) 59.0 40.0-77.0 % Lymphocytes (%) (Auto) 21.3 21.0-51.0 % Monocytes (%) (Auto) 15.2 H 3.0-13.0 % Eosinophils (%) (Auto) 2.8 0.0-8.0 % Basophils (%) (Auto) 1.2 0.0-5.0 % Neutrophils # (Auto) 2.5 1.8-7.7 K/uL Lymphocytes # (Auto) 0.9 L 1.0-4.8 K/uL Monocytes # (Auto) 0.7 0.1-1.0 K/uL Eosinophils # (Auto) 0.12 0.00-0.70 K/uL Basophils # (Auto) 0.05 0.00-0.20 K/uL Absolute Immature Granulocyte (auto 0.02 0-1 K/uL Nucleated Red Blood Cells 0.0 0.0-0.19 % Sodium Level 140 136-145 mmol/L Potassium Level 3.9 3.5-5.1 mmol/L Chloride Level 103 101-111 mmol/L Carbon Dioxide Level 31 21-32 mmol/L Blood Urea Nitrogen 14 7-18 mg/dL Creatinine 1.0 0.5-1.3 mg/dL Glomerular Filtration Rate Calc 97 >90 mL/min Random Glucose 117 H 70-105 mg/dL Total Calcium 9.1 8.5-10.1 mg/dL Total Bilirubin 6.5 H 0.2-1.0 mg/dL Aspartate Amino Transf (AST/SGOT) 171 H 10-37 U/L Alanine Aminotransferase (ALT/SGPT) 468 H 12-78 U/L Alkaline Phosphatase 229 H 50-136 U/L Total Protein 6.4 6.0-8.3 g/dL Albumin 3.2 L 3.5-5.0 g/dL Phosphorus Level 4.3 2.5-4.9 mg/dL Magnesium Level 2.00 1.80-2.40 mg/dL Stool Lactoferrin (DIDI) POSITIVE H NEGATIVE Current Medications Medications (Trade) Dose Ordered Sig/Jong Route PRN Reason Start Time Stop Time Status Last Admin Dose Admin Acetaminophen (TYLenol 325MG TAB) 650 mg Q6H PRN PO TEMPERATURE GREATER THAN 101.5 11/09/24 21:00 12/09/24 20:59 Diphenhydramine HCl (BENAdryl CAP) 25 mg Q8H PRN PO ITCHING 11/12/24 11:00 12/12/24 10:59 11/12/24 11:15 25 MG Famotidine (Pepcid 20mg Tab) 20 mg DAILY PO 11/10/24 09:00 12/10/24 08:59 11/12/24 08:40 20 MG Hydralazine HCl (APRESOLine 20MG INJ) 10 mg Q6H PRN IV For:SBP above 160;DBP above 90 11/09/24 21:00 12/09/24 20:59 Lactulose (Constulose 20gm/ 30ml Udcup) 20 gm BID PO 11/09/24 21:00 12/09/24 20:59 11/11/24 08:30 20 GM Morphine Sulfate (morPHINE 2MG SYG) 2 mg Q4H PRN IVP SEVERE PAIN (7-10) 11/09/24 21:00 11/16/24 20:59 Ondansetron HCl (zoFRAN 4MG INJ) 4 mg Q6H PRN IV NAUSEA/VOMITING 11/09/24 21:00 12/09/24 20:59 Piperacillin Sod/ Tazobactam Sod (Zosyn 3.375gm+NS 50ml) 3.375 gm ONCE IV 11/10/24 18:00 11/10/24 22:00 DC 11/10/24 19:15 3.375 GM Piperacillin Sod/ Tazobactam Sod (Zosyn 3.375gm+NS 50ml) 3.375 gm ZOSY8 IV 11/11/24 05:00 11/21/24 04:59 11/12/24 13:01 3.375 GM DIAGNOSTICS / RADIOLOGY: [ ] ASSESSMENT: Liver cirrhosis, questionable, normal platelets, normal INR POA, Abdominal ultrasound reads" liver parenchymal disease, "on 11/09/2024 Dilated CBD at 9mm Transaminitis Elevated total bilirubin Hypertension Hyperlipidemia PLAN: Salicylate, acetaminophen levels normal HIV negative Hepatitis ordered, will follow up NPO after midnight Trend LFT General Surgery consulted, appreciate recommendations GI consulted, appreciate recommendations Disposition: pending improvement in clinical status, EUS, GI recommendations ADRIANA ROSADO MD November 12, 2024 14:17
[2024-11-12] MEDS: atorVAStatin 40 MG TABLET PO SCH (20:28)
[2024-11-13] VITALS (26 sets, daily range): BP systolic 125–172; BP diastolic 77–105; PULSE 55–98; RESP 15–20; TEMP 97.1–97.9; O2SAT 96–99
[2024-11-13 05:56] LABS: BASOPHILS # (AUTO) 0.04 K/uL (0.00-0.20); BASOPHILS % (AUTO) 0.9 % (0.0-5.0); EOSINOPHILS # (AUTO) 0.12 K/uL (0.00-0.70); EOSINOPHILS % (AUTO) 2.8 % (0.0-8.0); HEMATOCRIT 43.6 % (42-54); IMMATURE GRANULOCYTE ABSOLUTE 0.03 K/uL (0-1); LYMPHOCYTES % (AUTO) 23.8 % (21.0-51.0); MEAN CORPUSCULAR HEMOGLOBIN 28.3 pg (27.0-33.0); MEAN CORPUSCULAR HGB CONC 32.1 g/dL (32.0-36.0); MEAN CORPUSCULAR VOLUME 88.3 fL (79-99); MONOCYTES # (AUTO) 0.6 K/uL (0.1-1.0); MONOCYTES % (AUTO) 13.4 % (3.0-13.0); NEUTROPHILS # (AUTO) 2.5 K/uL (1.8-7.7); NEUTROPHILS % (AUTO) 58.4 % (40.0-77.0); PLATELET COUNT (AUTO) 127 K/uL (130-400); RED BLOOD CELL COUNT(AUTO) 4.94 MIL/uL (4.50-6.20); RED CELL DISTRIBUTION WIDTH 13.7 % (11.0-15.5); WHITE BLOOD COUNT (AUTO) 4.2 K/uL (4.8-10.8)
[2024-11-13 06:22] LABS: ALBUMIN 3.2 g/dL (3.5-5.0); BILIRUBIN,TOTAL 6.4 mg/dL (0.2-1.0); CREATININE 1.1 mg/dL (0.5-1.3); TOTAL PROTEIN, SERUM 6.3 g/dL (6.0-8.3)
[2024-11-13] MEDS: LoSARTan 50 MG TABLET PO SCH (08:59)
--- NOTE | 2024-11-13 10:39 | PN ---
[facility] PROGRESS NOTE Date of Service: November 13, 2024 Time of Service: 10:36 SUBJECTIVE: 11/10 patient seen at bedside, no acute events overnight. Been afebrile, hemodynamically stable, tachycardia is improving he is saturating well on room air. MRCP is pending, we will follow up with the results. Further recommendations per GI. LFTs are trending back to normal, remainder of his labs are relatively unremarkable. We will expand differential for elevated LFTs, we will order acetaminophen, salicylate levels, HIV, hepatitis panel, blood alcohol level and a drug panel and follow up. 11/11 patient seen at bedside, no acute events overnight. He has been afebrile, hemodynamically stable, saturating well on room air. MRCP showing cholelithiasis with no evidence of choledocholithiasis. T bili increased from 4.7 up to 6.2, LFT stable, similar to yesterday. General surgery does not believe it is acute cholecystitis and that is underlying liver disease however platelets and INR are normal which is not consistent with cirrhosis. This appears to be acute in nature, we will consult GI for possible ERCP as there may be sphincter dysfunction given the size of the common bile duct and the uptrending T bili. 11/12 patient seen at bedside, no acute events overnight. T bili continues to up trend, LFTs still abnormal. Discussed case with GI who recommends an EUS tomorrow determine if an ERCP we will be necessary. Patient will be made NPO after midnight 11/13 patient is seen and examined at bedside, case discussed with the RN, no acute events overnight, scheduled for possible EUS today, to determine if an ERCP we will be needed. Patient has been NPO since midnight. Total bilirubin 6.4, AST of 158, ALT of 443, alkaline phosphate 219. HIDA scan shows findings suggestive of acute cholecystitis REVIEW OF SYSTEMS 12 point ROS negative unless noted in HPI PHYSICAL EXAM GENERAL APPEARANCE: The patient is awake, alert, and oriented, in no acute cardiopulmonary distress. NEUROLOGICAL: Cranial nerves II-XII grossly intact. Motor is 5/5 in bilateral upper and lower extremities proximal to distal. No sensory deficits. HEENT: Face is symmetric. Pupils are equal and reactive. Extraocular movements are intact. NECK: Supple. No JVD. No thyromegaly. No submental, submandibular, pre- /postauricular, occipital or supraclavicular lymphadenopathy. CHEST: Normal chest expansion. No Telemetry. LUNGS: Absence of any rales, rhonchi or any wheezing. CARDIOVASCULAR: Regular. S1 and S2 normal. No appreciable rubs, murmurs or gallops. ABDOMEN: Soft, nontender, and nondistended. There is no rebound, voluntary guarding, or rigidity. : Deferred. No Weber. EXTREMITIES: Non-edematous and not cyanotic. No clubbing. Good capillary refill. SKIN: No skin breakdown. Vital Signs (last 8hr) Date Time Temp Pulse Resp B/P (MAP) Pulse Ox O2 Delivery O2 Flow Rate FiO2 11/13/24 07:56 99 Room Air* 0 21 11/13/24 07:50 97.9 65 18 149/77 99 Room Air 21 11/13/24 04:00 97.5 66 20 126/83 100 Room Air LABS: Laboratory: Test 11/13/24 05:29 Range/Units White Blood Count 4.2 L 4.8-10.8 K/uL Red Blood Count 4.94 4.50-6.20 MIL/uL Hemoglobin 14.0 14.0-18.0 g/dL Hematocrit 43.6 42-54 % Mean Corpuscular Volume 88.3 79-99 fL Mean Corpuscular Hemoglobin 28.3 27.0-33.0 pg Mean Corpuscular Hemoglobin Concent 32.1 32.0-36.0 g/dL Red Cell Distribution Width 13.7 11.0-15.5 % Platelet Count 127 L 130-400 K/uL Mean Platelet Volume 9.6 7.5-10.5 fL Immature Granulocyte % (Auto) 0.7 0-1 % Neutrophils (%) (Auto) 58.4 40.0-77.0 % Lymphocytes (%) (Auto) 23.8 21.0-51.0 % Monocytes (%) (Auto) 13.4 H 3.0-13.0 % Eosinophils (%) (Auto) 2.8 0.0-8.0 % Basophils (%) (Auto) 0.9 0.0-5.0 % Neutrophils # (Auto) 2.5 1.8-7.7 K/uL Lymphocytes # (Auto) 1.0 1.0-4.8 K/uL Monocytes # (Auto) 0.6 0.1-1.0 K/uL Eosinophils # (Auto) 0.12 0.00-0.70 K/uL Basophils # (Auto) 0.04 0.00-0.20 K/uL Absolute Immature Granulocyte (auto 0.03 0-1 K/uL Nucleated Red Blood Cells 0.0 0.0-0.19 % Sodium Level 140 136-145 mmol/L Potassium Level 4.0 3.5-5.1 mmol/L Chloride Level 103 101-111 mmol/L Carbon Dioxide Level 27 21-32 mmol/L Blood Urea Nitrogen 10 7-18 mg/dL Creatinine 1.1 0.5-1.3 mg/dL Glomerular Filtration Rate Calc 86 >90 mL/min Random Glucose 94 70-105 mg/dL Total Calcium 9.3 8.5-10.1 mg/dL Total Bilirubin 6.4 H 0.2-1.0 mg/dL Aspartate Amino Transf (AST/SGOT) 158 H 10-37 U/L Alanine Aminotransferase (ALT/SGPT) 443 H 12-78 U/L Alkaline Phosphatase 219 H 50-136 U/L Total Protein 6.3 6.0-8.3 g/dL Albumin 3.2 L 3.5-5.0 g/dL Current Medications Medications (Trade) Dose Ordered Sig/Jong Route PRN Reason Start Time Stop Time Status Last Admin Dose Admin Acetaminophen (TYLenol 325MG TAB) 650 mg Q6H PRN PO TEMPERATURE GREATER THAN 101.5 11/09/24 21:00 12/09/24 20:59 Atorvastatin Calcium (LIPItor 40MG) 40 mg HS PO 11/12/24 21:00 12/12/24 20:59 Diphenhydramine HCl (BENAdryl CAP) 25 mg Q8H PRN PO ITCHING 11/12/24 11:00 12/12/24 10:59 11/12/24 11:15 25 MG Famotidine (Pepcid 20mg Tab) 20 mg DAILY PO 11/10/24 09:00 12/10/24 08:59 11/12/24 08:40 20 MG Hydralazine HCl (APRESOLine 20MG INJ) 10 mg Q6H PRN IV For:SBP above 160;DBP above 90 11/09/24 21:00 12/09/24 20:59 Lactulose (Constulose 20gm/ 30ml Udcup) 20 gm BID PO 11/09/24 21:00 12/09/24 20:59 11/12/24 20:28 20 GM Losartan Potassium (CozAAR 50 mg TAB) 50 mg DAILY PO 11/13/24 09:00 12/13/24 08:59 Morphine Sulfate (morPHINE 2MG SYG) 2 mg Q4H PRN IVP SEVERE PAIN (7-10) 11/09/24 21:00 11/16/24 20:59 Ondansetron HCl (zoFRAN 4MG INJ) 4 mg Q6H PRN IV NAUSEA/VOMITING 11/09/24 21:00 12/09/24 20:59 Piperacillin Sod/ Tazobactam Sod (Zosyn 3.375gm+NS 50ml) 3.375 gm ONCE IV 11/10/24 18:00 11/10/24 22:00 DC 11/10/24 19:15 3.375 GM Piperacillin Sod/ Tazobactam Sod (Zosyn 3.375gm+NS 50ml) 3.375 gm ZOSY8 IV 11/11/24 05:00 11/21/24 04:59 11/13/24 04:15 3.375 GM DIAGNOSTICS / RADIOLOGY: [ ] HEPATOBILIARY SCAN INDICATION: Right upper abdominal pain COMPARISON: None RADIOPHARMACEUTICAL: [id number] Choletec DOSE: 7.0 mCi given IV. TECHNIQUE: Abdominal functional images were obtained and submitted for interpretation. FINDINGS: Functional images obtained up to 4 hours showed normal hepato-intestinal transit time, but no accumulation of activity within the gallbladder within normal limits. IMPRESSION: Findings suggesting acute cholecystitis. ASSESSMENT: Liver cirrhosis, questionable, normal platelets, normal INR POA, Abdominal ultrasound reads" liver parenchymal disease, "on 11/09/2024 Dilated CBD at 9mm Transaminitis Elevated total bilirubin Hypertension Hyperlipidemia PLAN: Salicylate, acetaminophen levels normal HIV negative Hepatitis ordered, pending NPO after midnight Trend LFT General Surgery consulted, appreciate recommendations GI consulted, appreciate recommendations Disposition: pending improvement in clinical status, EUS, GI recommendations JESSIE SNYDER MD November 13, 2024 10:39
--- NOTE | 2024-11-13 12:48 | NUR ---
TAKEN OFF UNIT TO ENDO
[2024-11-13] MEDS ORDERED: proPOFol 10 MG/ML 20ML VIAL IV ONE (12:55)
[2024-11-13] MEDS ORDERED: LIDOCAINE HCL 1% 20 ML VIAL ONE (12:56)
--- NOTE | 2024-11-13 14:00 | NUR ---
BACK FROM ENDO, STONES NOTED IN GBD. RECOMENDING ERCP TOMORROW FOLLOWED [facility]
--- NOTE | 2024-11-13 18:00 | NUR ---
OBTAINED CONSENT FOR ERCP TOMORROW. WILL BE NPO AFTER MIDNIGHT
[2024-11-14] VITALS (29 sets, daily range): BP systolic 135–161; BP diastolic 78–98; PULSE 43–84; RESP 15–20; TEMP 97.3–98.7; O2SAT 96–97
[2024-11-14 05:44] LABS: HEMATOCRIT 42.1 % (42-54); MEAN CORPUSCULAR HEMOGLOBIN 28.8 pg (27.0-33.0); MEAN CORPUSCULAR HGB CONC 33.5 g/dL (32.0-36.0); MEAN CORPUSCULAR VOLUME 85.9 fL (79-99); RED BLOOD CELL COUNT(AUTO) 4.9 MIL/uL (4.50-6.20); RED CELL DISTRIBUTION WIDTH 13.6 % (11.0-15.5); WHITE BLOOD COUNT (AUTO) 4.1 K/uL (4.8-10.8)
[2024-11-14 06:00] LABS: ALBUMIN 3.2 g/dL (3.5-5.0); BILIRUBIN,TOTAL 8.4 mg/dL (0.2-1.0); CREATININE 0.9 mg/dL (0.5-1.3); MAGNESIUM 1.9 mg/dL (1.80-2.40); TOTAL PROTEIN, SERUM 6.3 g/dL (6.0-8.3)
[2024-11-14] MEDS ORDERED: FENTanyl CITRate PF 50 MCG/1 ML 2ML VIAL ONE (06:51)
[2024-11-14] MEDS ORDERED: proPOFol 10 MG/ML 20ML VIAL IV ONE (06:51)
[2024-11-14] MEDS ORDERED: rocuRONium bROMide 10MG/1ML 5ML VL ONE (06:51)
[2024-11-14] MEDS ORDERED: NEOSTIGMINE METHYLSULFATE 1MG/ML IV ONE (06:52)
[2024-11-14] MEDS ORDERED: LIDOCAINE PF 100MG/5ML (2%) SYRINGE 5ML ONE (06:52)
[2024-11-14] MEDS ORDERED: GLYCOPYRROLATE 0.2 MG/ML 5 ML VIAL ONE (06:52)
[2024-11-14] MEDS ORDERED: ondanSETRON 4MG INJ ONE (06:52)
[2024-11-14] MEDS ORDERED: dexaMETHasone SOD PHOSPHATE 10MG/ML 1ML VIAL ONE (06:52)
[2024-11-14] MEDS ORDERED: MIDAZOLAM HCL 1 MG/ML 2ML VIAL ONE (07:35)
--- NOTE | 2024-11-14 07:39 | NUR ---
OFF UNIT IN ENDO FOR ERCP
[2024-11-14] MEDS ORDERED: IOHEXOL-350 50ML VIAL IV ONE (08:20)
[2024-11-14] MEDS: INDOMETHACIN 100 MG SUPP.RECT RC ONE (08:34)
--- NOTE | 2024-11-14 09:10 | NUR ---
RETURNED FROM ERCP. IN NO DISTRESS.
--- NOTE | 2024-11-14 10:28 | PN ---
[facility] PROGRESS NOTE Date of Service: November 14, 2024 Time of Service: 10:24 SUBJECTIVE: 11/10 patient seen at bedside, no acute events overnight. Been afebrile, hemodynamically stable, tachycardia is improving he is saturating well on room air. MRCP is pending, we will follow up with the results. Further recommendations per GI. LFTs are trending back to normal, remainder of his labs are relatively unremarkable. We will expand differential for elevated LFTs, we will order acetaminophen, salicylate levels, HIV, hepatitis panel, blood alcohol level and a drug panel and follow up. 11/11 patient seen at bedside, no acute events overnight. He has been afebrile, hemodynamically stable, saturating well on room air. MRCP showing cholelithiasis with no evidence of choledocholithiasis. T bili increased from 4.7 up to 6.2, LFT stable, similar to yesterday. General surgery does not believe it is acute cholecystitis and that is underlying liver disease however platelets and INR are normal which is not consistent with cirrhosis. This appears to be acute in nature, we will consult GI for possible ERCP as there may be sphincter dysfunction given the size of the common bile duct and the uptrending T bili. 11/12 patient seen at bedside, no acute events overnight. T bili continues to up trend, LFTs still abnormal. Discussed case with GI who recommends an EUS tomorrow determine if an ERCP we will be necessary. Patient will be made NPO after midnight 11/13 patient is seen and examined at bedside, case discussed with the RN, no acute events overnight, scheduled for possible EUS today, to determine if an ERCP we will be needed. Patient has been NPO since midnight. Total bilirubin 6.4, AST of 158, ALT of 443, alkaline phosphate 219. HIDA scan shows findings suggestive of acute cholecystitis 11/14 patient remains hemodynamically stable, BP 137/84, afebrile, saturating normal on room air. He looks jaundiced, alert oriented x3, back in the room from having ERCP. CBC with a hemoglobin 14.1, hematocrit 42.1, platelet count 143, WBC 4.1. Liver enzymes with total bilirubin worse today at 8.4 compared to yesterday at 6.4. AST 169, ALT 442, alkaline phosphatase 219. Patient remains admitted to the medical floor Continue to monitor liver enzymes in a.m. Patient takes losartan 50 mg p.o. in a.m. and 25 mg p.o. at bedtime for blood pressure control We will discontinue atorvastatin, continue to monitor liver enzymes in a.m. 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 Choledocholithiasis was found. Power chart removal was accomplished with a biliary sphincterotomy, a stent was inserted. A biliary sphincterotomy was performed. The biliary tree was swept. One covered metal stent was placed into the common bile duct. One plastic stent was placed into the ventral pancreatic duct. DIFFICULT CANNULATION/PERIAMPULLARY DIVERTICULUM-DOPPLER WIRE AFTER STENTING SMALL STONE AND SLUDGE REMOVED-APPARENT MIRIZI SYNDROME WITH A STONE COMPRESSING CBD AT LEVEL OF CYSTIC DUCT-COULD NOT PASS SPIKED SCOPE UP TO THIS LEVEL SECONDARY TO LACK OF DILATATION IN THE DISTAL CBD. REVIEW OF SYSTEMS 12 point ROS negative unless noted in HPI PHYSICAL EXAM GENERAL APPEARANCE: The patient is awake, alert, and oriented, in no acute card iopulmonary distress. NEUROLOGICAL: Cranial nerves II-XII grossly intact. Motor is 5/5 in bilateral upper and lower extremities proximal to distal. No sensory deficits. HEENT: Face is symmetric. Pupils are equal and reactive. Extraocular movements are intact. NECK: Supple. No JVD. No thyromegaly. No submental, submandibular, pre- /postauricular, occipital or supraclavicular lymphadenopathy. CHEST: Normal chest expansion. No Telemetry. LUNGS: Absence of any rales, rhonchi or any wheezing. CARDIOVASCULAR: Regular. S1 and S2 normal. No appreciable rubs, murmurs or gallops. ABDOMEN: Soft, nontender, and nondistended. There is no rebound, voluntary guarding, or rigidity. : Deferred. No Weber. EXTREMITIES: Non-edematous and not cyanotic. No clubbing. Good capillary refill. SKIN: No skin breakdown. Vital Signs (last 8hr) Date Time Temp Pulse Resp B/P (MAP) Pulse Ox O2 Delivery O2 Flow Rate FiO2 11/14/24 09:21 96 Nasal Cannula* 2 28 11/14/24 09:10 97.5 65 16 137/84 96 Room Air 11/14/24 09:05 97.5 65 16 140/83 96 Room Air 11/14/24 09:00 97.5 69 16 139/83 96 Room Air 11/14/24 08:55 97.5 63 16 138/81 96 Room Air 11/14/24 08:50 97.3 66 16 135/87 96 Room Air 11/14/24 08:45 97.3 66 16 147/88 97 Room Air 11/14/24 08:40 97.3 71 16 147/90 97 Nasal Cannula 2.0 11/14/24 08:35 97.3 74 16 150/88 97 Nasal Cannula 2.0 11/14/24 08:30 97.3 69 15 150/85 97 Nasal Cannula 3.0 11/14/24 08:25 97.3 81 15 149/87 97 Nasal Cannula 3.0 11/14/24 07:20 Mask 11/14/24 07:20 Mask 15.0 11/14/24 07:20 83 18 154/90 100 MASK 15.0 11/14/24 03:28 98.1 60 20 148/92 100 Room Air LABS: Laboratory: Test 11/14/24 05:31 11/13/24 05:29 Range/Units White Blood Count 4.1 L 4.8-10.8 K/uL Red Blood Count 4.90 4.50-6.20 MIL/uL Hemoglobin 14.1 14.0-18.0 g/dL Hematocrit 42.1 42-54 % Mean Corpuscular Volume 85.9 79-99 fL Mean Corpuscular Hemoglobin 28.8 27.0-33.0 pg Mean Corpuscular Hemoglobin Concent 33.5 32.0-36.0 g/dL Red Cell Distribution Width 13.6 11.0-15.5 % Platelet Count 143 130-400 K/uL Mean Platelet Volume 9.6 7.5-10.5 fL Nucleated Red Blood Cells 0.0 0.0-0.19 % Sodium Level 140 136-145 mmol/L Potassium Level 4.0 3.5-5.1 mmol/L Chloride Level 104 101-111 mmol/L Carbon Dioxide Level 26 21-32 mmol/L Blood Urea Nitrogen 8 7-18 mg/dL Creatinine 0.9 0.5-1.3 mg/dL Glomerular Filtration Rate Calc 110 >90 mL/min Random Glucose 96 70-105 mg/dL Total Calcium 9.4 8.5-10.1 mg/dL Magnesium Level 1.90 1.80-2.40 mg/dL Total Bilirubin 8.4 H 0.2-1.0 mg/dL Aspartate Amino Transf (AST/SGOT) 169 H 10-37 U/L Alanine Aminotransferase (ALT/SGPT) 442 H 12-78 U/L Alkaline Phosphatase 219 H 50-136 U/L Total Protein 6.3 6.0-8.3 g/dL Albumin 3.2 L 3.5-5.0 g/dL Immature Granulocyte % (Auto) 0.7 0-1 % Neutrophils (%) (Auto) 58.4 40.0-77.0 % Lymphocytes (%) (Auto) 23.8 21.0-51.0 % Monocytes (%) (Auto) 13.4 H 3.0-13.0 % Eosinophils (%) (Auto) 2.8 0.0-8.0 % Basophils (%) (Auto) 0.9 0.0-5.0 % Neutrophils # (Auto) 2.5 1.8-7.7 K/uL Lymphocytes # (Auto) 1.0 1.0-4.8 K/uL Monocytes # (Auto) 0.6 0.1-1.0 K/uL Eosinophils # (Auto) 0.12 0.00-0.70 K/uL Basophils # (Auto) 0.04 0.00-0.20 K/uL Absolute Immature Granulocyte (auto 0.03 0-1 K/uL Current Medications Medications (Trade) Dose Ordered Sig/Jong Route PRN Reason Start Time Stop Time Status Last Admin Dose Admin Acetaminophen (TYLenol 325MG TAB) 650 mg Q6H PRN PO TEMPERATURE GREATER THAN 101.5 11/09/24 21:00 12/09/24 20:59 Atorvastatin Calcium (LIPItor 40MG) 40 mg HS PO 11/12/24 21:00 12/12/24 20:59 Diphenhydramine HCl (BENAdryl CAP) 25 mg Q8H PRN PO ITCHING 11/12/24 11:00 12/12/24 10:59 11/12/24 11:15 25 MG Famotidine (Pepcid 20mg Tab) 20 mg DAILY PO 11/10/24 09:00 12/10/24 08:59 11/12/24 08:40 20 MG Hydralazine HCl (APRESOLine 20MG INJ) 10 mg Q6H PRN IV For:SBP above 160;DBP above 90 11/09/24 21:00 12/09/24 20:59 Lactulose (Constulose 20gm/ 30ml Udcup) 20 gm BID PO 11/09/24 21:00 12/09/24 20:59 11/13/24 22:01 20 GM Losartan Potassium (CozAAR 50 mg TAB) 50 mg DAILY PO 11/13/24 09:00 12/13/24 08:59 Morphine Sulfate (morPHINE 2MG SYG) 2 mg Q4H PRN IVP SEVERE PAIN (7-10) 11/09/24 21:00 11/16/24 20:59 Ondansetron HCl (zoFRAN 4MG INJ) 4 mg Q6H PRN IV NAUSEA/VOMITING 11/09/24 21:00 12/09/24 20:59 Piperacillin Sod/ Tazobactam Sod (Zosyn 3.375gm+NS 50ml) 3.375 gm ONCE IV 11/10/24 18:00 11/10/24 22:00 DC 11/10/24 19:15 3.375 GM Piperacillin Sod/ Tazobactam Sod (Zosyn 3.375gm+NS 50ml) 3.375 gm ZOSY8 IV 11/11/24 05:00 11/21/24 04:59 11/14/24 04:58 3.375 GM DIAGNOSTICS / RADIOLOGY: [ ] ASSESSMENT: Liver cirrhosis, questionable, normal platelets, normal INR POA, Abdominal ultrasound reads" liver parenchymal disease, "on 11/09/2024 Dilated CBD at 9mm Transaminitis Elevated total bilirubin Hypertension Hyperlipidemia PLAN: Patient remains admitted to the medical floor Continue to monitor liver enzymes in a.m. Patient takes losartan 50 mg p.o. in a.m. and 25 mg p.o. at bedtime for blood pressure control We will discontinue atorvastatin, continue to monitor liver enzymes in a.m. 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 Choledocholithiasis was found. Power chart removal was accomplished with a biliary sphincterotomy, a stent was inserted. A biliary sphincterotomy was performed. The biliary tree was swept. One covered metal stent was placed into the common bile duct. One plastic stent was placed into the ventral pancreatic duct. DIFFICULT CANNULATION/PERIAMPULLARY DIVERTICULUM-DOPPLER WIRE AFTER STENTING SMALL STONE AND SLUDGE REMOVED-APPARENT MIRIZI SYNDROME WITH A STONE COMPRESSING CBD AT LEVEL OF CYSTIC DUCT-COULD NOT PASS SPIKED SCOPE UP TO THIS LEVEL SECONDARY TO LACK OF DILATATION IN THE DISTAL CBD. NEURO: Minimize central acting medications as possible. Fall Precautions. Well lighted room through the day and minimize interruptions through the night to prevent acute delirium. PULMONARY: Supplemental 02 as needed BiPAP as necessary, for respiratory distress Titrate Fio2 to keep Spo2 > or = 90% DuoNebs and CPT as needed IS hourly while awake for pulmonary hygiene prn Out of bed to chair as tolerated Maintain aspiration precautions at all times CARDIOVASCULAR: Follow hemodynamics. Vital signs per facility protocol GI & NUTRITION: Continue nutritional support Aspirations precautions Prokinetic agents and laxatives as needed KIDNEYS & ELECTROLYTES: Strict monitoring of intake and output Daily weights Avoid nephrotoxic agents Monitor electrolytes and replace as needed Goal urine output of 30mL/hr or 0.5mL/kg/hr Medications to be dosed according to renal function. Avoid contrast if possible ENDOCRINE: Maintain blood glucose between 100-180 at all times. Insulin sliding scale for blood glucose management Hypoglycemia and hyperglycemia protocol in place INFECTIOUS DISEASE: Trend temperature, WBC and procalcitonin level Follow cultures, deescalate antibiotics as soon as possible. Panculture if new onset fever HEMATOLOGY & COAGULATION: Monitor H&H. Keep Hgb > 7 Transfuse 1 unit of PRBC for Hgb < 7 Transfuse 1 pack of platelets of platelets < 20, 000 Watch for any signs and symptoms of bleeding SKIN: Pressure ulcer prevention per facility protocol Specialty mattress as needed ORTHO/REHAB Continue PT/OT PRN: MEDICATIONS Tylenol 650 mg po every 4 hrs for fever zofran 4 mg IV every 6 hrs for n/v Hydralazine 5 mg IV every 4 hrs systolic pressure > 160 bowel regiment: lactulose 20 gm PO BID PRN constipation Supportive measures: Continue GI and DVT prophylaxis Disposition: Pending improvement in clinical condition All questions answered time spent: > 35 min JESSIE SNYDER MD November 14, 2024 10:28
[2024-11-14] MEDS: morPHINE 2 MG SYG IVP PRN (12:20)
--- NOTE | 2024-11-14 12:39 | HMCIMG ---
X-RAY BILIARY DUCT ENDOSCOPY REASON: CHOLEDOCHOLITHIASIS. COMPARISON: None TECHNIQUE: ERCP was performed by referring physician. FINDINGS: Please see procedure report by referring physician. IMPRESSION: ERCP
--- NOTE | 2024-11-14 13:17 | NUR ---
DR GIRALDO AT BEDSIDE. OK TO PLACE ON CLEAR DIET AND ADVANCE TO LOW FAT DIET IF TOLERATED. CAN DC TOMORROW AND F/U ON WEDNESDAY AT [facility] FOR LFT (SCRIPT LEFT IN CHART) AND F/U ON WEDNESDAY OR WEDNESDAY WITH DR GIRALDO TO SCHEDULE RANGEL
--- NOTE | 2024-11-14 13:20 | PN ---
Patient is status post ERCP sphincterotomy stent placement. Patient presently without complaints of pain be started on clear liquids. Patient is jaundiced. Scleral icterus. Abdomen is soft nontender no guarding no rebound. Discussed with Dr. Gregg and patient patient will require a cholecystectomy once his bilirubin returns towards normal. If patient is doing well until tolerating diet he can be discharged to home follow up Wednesday or Wednesday in the office to schedule outpatient lap cecilia Vitals/Labs Vital Signs Date Time Temp Pulse Resp B/P (MAP) Pulse Ox O2 Delivery O2 Flow Rate FiO2 11/14/24 12:00 97.9 84 18 148/82 93 Room Air 11/14/24 09:21 2 28 Laboratory Tests 11/14/24 05:31 Medications Current Medications Sodium Chloride 1,000 ml @ 0 mls/hr ONCE ONCE IV Last administered on 11/09/24at 19:50; Start 11/09/24 at 18:30; Stop 11/09/24 at 18:31; Status DC Morphine Sulfate 4 mg ONCE ONCE IVP Last administered on 11/09/24at 19:49; Start 11/09/24 at 18:30; Stop 11/09/24 at 18:31; Status DC Ondansetron HCl 4 mg ONCE ONCE IVP Last administered on 11/09/24at 19:49; Start 11/09/24 at 18:30; Stop 11/09/24 at 18:31; Status DC Lactulose 20 gm BID PO Last administered on 11/13/24at 22:01; Start 11/09/24 at 21:00; Stop 11/14/24 at 13:02; Status DC Acetaminophen 650 mg Q6H PRN PO; Start 11/09/24 at 21:00; Stop 12/09/24 at 20:59 Famotidine 20 mg DAILY PO Last administered on 11/12/24at 08:40; Start 11/10/24 at 09:00; Stop 12/10/24 at 08:59 Hydralazine HCl 10 mg Q6H PRN IV; Start 11/09/24 at 21:00; Stop 12/09/24 at 20:59 Morphine Sulfate 2 mg Q4H PRN IVP Last administered on 11/14/24at 12:20; Start 11/09/24 at 21:00; Stop 11/16/24 at 20:59 Ondansetron HCl 4 mg Q6H PRN IV; Start 11/09/24 at 21:00; Stop 12/09/24 at 20:59 Piperacillin Sod/ Tazobactam Sod 3.375 gm ZOSY8 IV Last administered on 11/14/24at 12:18; Start 11/11/24 at 05:00; Stop 11/21/24 at 04:59 Piperacillin Sod/ Tazobactam Sod 3.375 gm ONCE IV Last administered on 11/10/24at 19:15; Start 11/10/24 at 18:00; Stop 11/10/24 at 22:00; Status DC Diphenhydramine HCl 25 mg Q8H PRN PO Last administered on 11/12/24at 11:15; Start 11/12/24 at 11:00; Stop 12/12/24 at 10:59 Losartan Potassium 50 mg DAILY PO; Start 11/13/24 at 09:00; Stop 11/14/24 at 13:08; Status DC Atorvastatin Calcium 40 mg HS PO; Start 11/12/24 at 21:00; Stop 11/14/24 at 13:02; Status DC Propofol 200 mg STK-MED ONCE IV; Start 11/13/24 at 12:55; Stop 11/13/24 at 12:56; Status DC Lidocaine HCl 20 ml STK-MED ONCE .ROUTE; Start 11/13/24 at 12:56; Stop 11/13/24 at 12:56; Status DC Indomethacin 100 mg ONCE ONCE RC Last administered on 11/14/24at 08:34; Start 11/14/24 at 07:00; Stop 11/14/24 at 07:01; Status DC Rocuronium [place] 50 mg STK-MED ONCE .ROUTE; Start 11/14/24 at 06:51; Stop 11/14/24 at 06:51; Status DC Fentanyl Citrate 100 mcg STK-MED ONCE .ROUTE; Start 11/14/24 at 06:51; Stop 11/14/24 at 06:52; Status DC Propofol 200 mg STK-MED ONCE IV; Start 11/14/24 at 06:51; Stop 11/14/24 at 06:52; Status DC Dexamethasone Sodium Phosphate 10 mg STK-MED ONCE .ROUTE; Start 11/14/24 at 06:52; Stop 11/14/24 at 06:52; Status DC Lidocaine HCl 100 mg STK-MED ONCE .ROUTE; Start 11/14/24 at 06:52; Stop 11/14/24 at 06:52; Status DC Glycopyrrolate 1 mg STK-MED ONCE .ROUTE; Start 11/14/24 at 06:52; Stop 11/14/24 at 06:52; Status DC Neostigmine Methylsulfate 10 mg STK-MED ONCE IV; Start 11/14/24 at 06:52; Stop 11/14/24 at 06:53; Status DC Ondansetron HCl 4 mg STK-MED ONCE .ROUTE; Start 11/14/24 at 06:52; Stop 11/14/24 at 06:53; Status DC Midazolam HCl 2 mg STK-MED ONCE .ROUTE; Start 11/14/24 at 07:35; Stop 11/14/24 at 07:36; Status DC Iohexol 50 ml STK-MED ONCE IV; Start 11/14/24 at 08:20; Stop 11/14/24 at 08:20; Status DC Losartan Potassium 25 mg HS PO; Start 11/14/24 at 21:00; Stop 12/14/24 at 20:59 NAMAN GIRALDO MD November 14, 2024 13:20
[2024-11-14] MEDS: ondanSETRON 4MG INJ IV PRN (14:02)
[2024-11-14] MEDS: LoSARTan 25 MG TABLET PO SCH (21:33)
[2024-11-15] VITALS (7 sets, daily range): BP systolic 133–151; BP diastolic 81–94; PULSE 58–69; RESP 16–18; TEMP 97.5–98.6; O2SAT 99
[2024-11-15] MEDS: LACTULOSE 20 GM/30 ML UDCUP PO ONE (03:22)
[2024-11-15] MEDS: LACTULOSE 20 GM/30 ML UDCUP ONE (03:22)
[2024-11-15 06:16] LABS: HEMATOCRIT 43.7 % (42-54); MEAN CORPUSCULAR HEMOGLOBIN 28.2 pg (27.0-33.0); MEAN CORPUSCULAR HGB CONC 33.2 g/dL (32.0-36.0); RED BLOOD CELL COUNT(AUTO) 5.14 MIL/uL (4.50-6.20); RED CELL DISTRIBUTION WIDTH 13.4 % (11.0-15.5); WHITE BLOOD COUNT (AUTO) 7.8 K/uL (4.8-10.8)
[2024-11-15 06:38] LABS: ALBUMIN 3.3 g/dL (3.5-5.0); BILIRUBIN,TOTAL 6.6 mg/dL (0.2-1.0); MAGNESIUM 1.8 mg/dL (1.80-2.40); POTASSIUM 3.8 mmol/L (3.5-5.1); TOTAL PROTEIN, SERUM 6.6 g/dL (6.0-8.3)
[2024-11-15] MEDS ORDERED: PoTASSium chloRIDE 20MEQ/100ML 100 ML IV PRN (08:30)
[2024-11-15] MEDS ORDERED: PoTASSium chl 10% ELIXIR 20MEQ 20 MEQ/15 ML UDCUP PO PRN (08:30)
[2024-11-15] MEDS: MAGNESIUM 2GM PREMIX 50ML 50 ML IV PRN (08:36)
[2024-11-15] MEDS: PoTASSium chloRIDE 20MEQ ER 20 MEQ ERTAB PO PRN (08:36)
--- NOTE | 2024-11-15 12:41 | PN ---
[facility] PROGRESS NOTE Date of Service: November 15, 2024 Time of Service: 12:38 SUBJECTIVE: 11/10 patient seen at bedside, no acute events overnight. Been afebrile, hemodynamically stable, tachycardia is improving he is saturating well on room air. MRCP is pending, we will follow up with the results. Further recommendations per GI. LFTs are trending back to normal, remainder of his labs are relatively unremarkable. We will expand differential for elevated LFTs, we will order acetaminophen, salicylate levels, HIV, hepatitis panel, blood alcohol level and a drug panel and follow up. 11/11 patient seen at bedside, no acute events overnight. He has been afebrile, hemodynamically stable, saturating well on room air. MRCP showing cholelithiasis with no evidence of choledocholithiasis. T bili increased from 4.7 up to 6.2, LFT stable, similar to yesterday. General surgery does not believe it is acute cholecystitis and that is underlying liver disease however platelets and INR are normal which is not consistent with cirrhosis. This appears to be acute in nature, we will consult GI for possible ERCP as there may be sphincter dysfunction given the size of the common bile duct and the uptrending T bili. 11/12 patient seen at bedside, no acute events overnight. T bili continues to up trend, LFTs still abnormal. Discussed case with GI who recommends an EUS tomorrow determine if an ERCP we will be necessary. Patient will be made NPO after midnight 11/13 patient is seen and examined at bedside, case discussed with the RN, no acute events overnight, scheduled for possible EUS today, to determine if an ERCP we will be needed. Patient has been NPO since midnight. Total bilirubin 6.4, AST of 158, ALT of 443, alkaline phosphate 219. HIDA scan shows findings suggestive of acute cholecystitis 11/14 patient remains hemodynamically stable, BP 137/84, afebrile, saturating normal on room air. He looks jaundiced, alert oriented x3, back in the room from having ERCP. CBC with a hemoglobin 14.1, hematocrit 42.1, platelet count 143, WBC 4.1. Liver enzymes with total bilirubin worse today at 8.4 compared to yesterday at 6.4. AST 169, ALT 442, alkaline phosphatase 219. Patient remains admitted to the medical floor Continue to monitor liver enzymes in a.m. Patient takes losartan 50 mg p.o. in a.m. and 25 mg p.o. at bedtime for blood pressure control We will discontinue atorvastatin, continue to monitor liver enzymes in a.m. 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 Choledocholithiasis was found. Power chart removal was accomplished with a biliary sphincterotomy, a stent was inserted. A biliary sphincterotomy was performed. The biliary tree was swept. One covered metal stent was placed into the common bile duct. One plastic stent was placed into the ventral pancreatic duct. DIFFICULT CANNULATION/PERIAMPULLARY DIVERTICULUM-DOPPLER WIRE AFTER STENTING SMALL STONE AND SLUDGE REMOVED-APPARENT MIRIZI SYNDROME WITH A STONE COMPRESSING CBD AT LEVEL OF CYSTIC DUCT-COULD NOT PASS SPIKED SCOPE UP TO THIS LEVEL SECONDARY TO LACK OF DILATATION IN THE DISTAL CBD. 11/15 patient is seen and examined at bedside, case discussed with the RN, no acute events overnight, patient tolerating clear liquid diet, he admits mild epigastric discomfort, lipase level of 1131, total bilirubin improved from 8.4-6.6, discussed with the patient. Blood pressure 133/82, afebrile, saturating normal on room air. Patient remains admitted to the medical floor Continue to monitor liver enzymes in a.m. Continue current blood pressure management with the adjustment as needed Atorvastatin discontinued, continue to monitor liver enzymes Continue to follow amylase and lipase level in a.m. Discontinued lactulose yesterday Continue clear liquid diet Case discussed with General surgery, plan will be tentatively to take to the OR on Wednesday if the patient decides to stay in the hospital, if not patient can follow up as an outpatient and will scheduled electively. REVIEW OF SYSTEMS 12 point ROS negative unless noted in HPI PHYSICAL EXAM GENERAL APPEARANCE: The patient is awake, alert, and oriented, in no acute cardiopulmonary distress. NEUROLOGICAL: Cranial nerves II-XII grossly intact. Motor is 5/5 in bilateral upper and lower extremities proximal to distal. No sensory deficits. HEENT: Face is symmetric. Pupils are equal and reactive. Extraocular movements are intact. NECK: Supple. No JVD. No thyromegaly. No submental, submandibular, pre- /postauricular, occipital or supraclavicular lymphadenopathy. CHEST: Normal chest expansion. No Telemetry. LUNGS: Absence of any rales, rhonchi or any wheezing. CARDIOVASCULAR: Regular. S1 and S2 normal. No appreciable rubs, murmurs or gallops. ABDOMEN: Soft, nontender, and nondistended. There is no rebound, voluntary guarding, or rigidity. : Deferred. No Weber. EXTREMITIES: Non-edematous and not cyanotic. No clubbing. Good capillary refill. SKIN: No skin breakdown. Vital Signs (last 8hr) Date Time Temp Pulse Resp B/P (MAP) Pulse Ox O2 Delivery O2 Flow Rate FiO2 11/15/24 12:00 97.9 60 18 133/82 98 Room Air 21 11/15/24 08:00 97.9 69 18 151/87 99 Room Air 21 LABS: Laboratory: Test 11/15/24 05:56 Range/Units White Blood Count 7.8 4.8-10.8 K/uL Red Blood Count 5.14 4.50-6.20 MIL/uL Hemoglobin 14.5 14.0-18.0 g/dL Hematocrit 43.7 42-54 % Mean Corpuscular Volume 85.0 79-99 fL Mean Corpuscular Hemoglobin 28.2 27.0-33.0 pg Mean Corpuscular Hemoglobin Concent 33.2 32.0-36.0 g/dL Red Cell Distribution Width 13.4 11.0-15.5 % Platelet Count 171 130-400 K/uL Mean Platelet Volume 10.0 7.5-10.5 fL Nucleated Red Blood Cells 0.0 0.0-0.19 % Sodium Level 138 136-145 mmol/L Potassium Level 3.8 3.5-5.1 mmol/L Chloride Level 101 101-111 mmol/L Carbon Dioxide Level 26 21-32 mmol/L Blood Urea Nitrogen 15 7-18 mg/dL Creatinine 1.0 0.5-1.3 mg/dL Glomerular Filtration Rate Calc 97 >90 mL/min Random Glucose 134 H 70-105 mg/dL Total Calcium 9.3 8.5-10.1 mg/dL Magnesium Level 1.80 1.80-2.40 mg/dL Total Bilirubin 6.6 H 0.2-1.0 mg/dL Aspartate Amino Transf (AST/SGOT) 173 H 10-37 U/L Alanine Aminotransferase (ALT/SGPT) 471 H 12-78 U/L Alkaline Phosphatase 213 H 50-136 U/L Total Protein 6.6 6.0-8.3 g/dL Albumin 3.3 L 3.5-5.0 g/dL Amylase Level 177 H 25-115 U/L Lipase 1131 *H 16-77 U/L Current Medications Medications (Trade) Dose Ordered Sig/Jong Route PRN Reason Start Time Stop Time Status Last Admin Dose Admin Acetaminophen (TYLenol 325MG TAB) 650 mg Q6H PRN PO TEMPERATURE GREATER THAN 101.5 11/09/24 21:00 12/09/24 20:59 Atorvastatin Calcium (LIPItor 40MG) 40 mg HS PO 11/12/24 21:00 11/14/24 13:02 DC Diphenhydramine HCl (BENAdryl CAP) 25 mg Q8H PRN PO ITCHING 11/12/24 11:00 12/12/24 10:59 11/12/24 11:15 25 MG Famotidine (Pepcid 20mg Tab) 20 mg DAILY PO 11/10/24 09:00 12/10/24 08:59 11/15/24 08:36 20 MG Hydralazine HCl (APRESOLine 20MG INJ) 10 mg Q6H PRN IV For:SBP above 160;DBP above 90 11/09/24 21:00 12/09/24 20:59 Lactulose (Constulose 20gm/ 30ml Udcup) 20 gm BID PO 11/09/24 21:00 11/14/24 13:02 DC 11/13/24 22:01 20 GM Losartan Potassium (CozAAR 25MG TAB) 25 mg HS PO 11/14/24 21:00 12/14/24 20:59 11/14/24 21:33 25 MG Losartan Potassium (CozAAR 50 mg TAB) 50 mg DAILY PO 11/13/24 09:00 11/14/24 13:08 DC Magnesium Sulfate 50 ml @ 0 mls/hr PROTOCOL PRN IV MAGNESIUM PROTOCOL 11/15/24 08:30 12/15/24 08:29 11/15/24 08:36 25 MLS/HR Morphine Sulfate (morPHINE 2MG SYG) 2 mg Q4H PRN IVP SEVERE PAIN (7-10) 11/09/24 21:00 11/14/24 23:59 DC 11/14/24 12:20 2 MG Ondansetron HCl (zoFRAN 4MG INJ) 4 mg Q6H PRN IV NAUSEA/VOMITING 11/09/24 21:00 12/09/24 20:59 11/14/24 14:02 4 MG Piperacillin Sod/ Tazobactam Sod (Zosyn 3.375gm+NS 50ml) 3.375 gm ONCE IV 11/10/24 18:00 11/10/24 22:00 DC 11/10/24 19:15 3.375 GM Piperacillin Sod/ Tazobactam Sod (Zosyn 3.375gm+NS 50ml) 3.375 gm ZOSY8 IV 11/11/24 05:00 11/21/24 04:59 11/15/24 05:04 3.375 GM Potassium Chloride 100 ml @ 100 mls/hr AD PRN IV POTASSIUM PROTOCOL 11/15/24 08:30 12/15/24 08:29 Potassium Chloride (K-Dur/Klor-Con 20meq) 20 meq AD PRN PO POTASSIUM PROTOCOL 11/15/24 08:30 12/15/24 08:29 11/15/24 08:36 20 MEQ Potassium Chloride (KCl 10% Elixir 20meq/15ml) 20 meq AD PRN PO POTASSIUM PROTOCOL 11/15/24 08:30 12/15/24 08:29 DIAGNOSTICS / RADIOLOGY: [ ] ASSESSMENT: Liver cirrhosis, questionable, normal platelets, normal INR POA, Abdominal ultrasound reads" liver parenchymal disease, "on 11/09/2024 Dilated CBD at 9mm Transaminitis Elevated total bilirubin Hypertension Hyperlipidemia PLAN: Patient remains admitted to the medical floor Continue to monitor liver enzymes in a.m. Continue current blood pressure management with the adjustment as needed Atorvastatin discontinued, continue to monitor liver enzymes Continue to follow amylase and lipase level in a.m. Discontinued lactulose yesterday Continue clear liquid diet Case discussed with General surgery, plan will be tentatively to take to the OR on Wednesday if the patient decides to stay in the hospital, if not patient can follow up as an outpatient and will scheduled electively. NEURO: Minimize central acting medications as possible. Fall Precautions. Well lighted room through the day and minimize interruptions through the night to prevent acute delirium. PULMONARY: Supplemental 02 as needed BiPAP as necessary, for respiratory distress Titrate Fio2 to keep Spo2 > or = 90% DuoNebs and CPT as needed IS hourly while awake for pulmonary hygiene prn Out of bed to chair as tolerated Maintain aspiration precautions at all times CARDIOVASCULAR: Follow hemodynamics. Vital signs per facility protocol GI & NUTRITION: Continue nutritional support Aspirations precautions Prokinetic agents and laxatives as needed KIDNEYS & ELECTROLYTES: Strict monitoring of intake and output Daily weights Avoid nephrotoxic agents Monitor electrolytes and replace as needed Goal urine output of 30mL/hr or 0.5mL/kg/hr Medications to be dosed according to renal function. Avoid contrast if possible ENDOCRINE: Maintain blood glucose between 100-180 at all times. Insulin sliding scale for blood glucose management Hypoglycemia and hyperglycemia protocol in place INFECTIOUS DISEASE: Trend temperature, WBC and procalcitonin level Follow cultures, deescalate antibiotics as soon as possible. Panculture if new onset fever HEMATOLOGY & COAGULATION: Monitor H&H. Keep Hgb > 7 Transfuse 1 unit of PRBC for Hgb < 7 Transfuse 1 pack of platelets of platelets < 20, 000 Watch for any signs and symptoms of bleeding SKIN: Pressure ulcer prevention per facility protocol Specialty mattress as needed ORTHO/REHAB Continue PT/OT PRN: MEDICATIONS Tylenol 650 mg po every 4 hrs for fever zofran 4 mg IV every 6 hrs for n/v Hydralazine 5 mg IV every 4 hrs systolic pressure > 160 bowel regiment: lactulose 20 gm PO BID PRN constipation Supportive measures: Continue GI and DVT prophylaxis Disposition: Pending improvement in clinical condition All questions answered time spent: > 35 min JESSIE SNYDER MD November 15, 2024 12:41
[2024-11-15] MEDS: morPHINE 2 MG SYG IVP PRN (20:42)
[2024-11-16] VITALS (8 sets, daily range): BP systolic 124–149; BP diastolic 71–88; PULSE 56–94; RESP 16–18; TEMP 98.1–98.4; O2SAT 98
[2024-11-16 06:35] LABS: HEMATOCRIT 43.3 % (42-54); MEAN CORPUSCULAR HEMOGLOBIN 28.5 pg (27.0-33.0); MEAN CORPUSCULAR HGB CONC 32.3 g/dL (32.0-36.0); RED BLOOD CELL COUNT(AUTO) 4.92 MIL/uL (4.50-6.20); RED CELL DISTRIBUTION WIDTH 13.8 % (11.0-15.5); WHITE BLOOD COUNT (AUTO) 7.9 K/uL (4.8-10.8)
[2024-11-16 07:04] LABS: ALBUMIN 3.2 g/dL (3.5-5.0); BILIRUBIN,TOTAL 4.9 mg/dL (0.2-1.0); CREATININE 1.1 mg/dL (0.5-1.3); MAGNESIUM 2.1 mg/dL (1.80-2.40); POTASSIUM 4.2 mmol/L (3.5-5.1); TOTAL PROTEIN, SERUM 6.3 g/dL (6.0-8.3)
--- NOTE | 2024-11-16 07:20 | NUR ---
REPORT PATIENT ALERT AND ORIENTED X 4, LYING IN BED RESTING, BED LOCKED IN LOWEST POSITION, SIDERAILS X 2, BEDSIDE TABLE AND PERSONAL BELONGINGS WITHIN REACH, GAVE REPORT TO ONCOMING NURSING STAFF AND ENDORSED CARE OF PATIENT AT THIS TIME, PLAN OF CARE FOR PATIENT ONGOING
--- NOTE | 2024-11-16 07:24 | NUR ---
CRITICAL LAB [facility], PAGED ANSWERING SERVICE TO [employer] PHYSICIAN
--- NOTE | 2024-11-16 09:00 | NUR ---
ASSESSMENT YELLOW DISCOLORATION TO ANDRE EYES. Addendum: 11/16/24 at 2110 by JANETTE RAMOS LVN LVN Amended: Links added.
--- NOTE | 2024-11-16 09:06 | NUR ---
LIPASE LEVEL [id number] Addendum: 11/16/24 at 0907 by JANETTE RAMOS LVN LVN Amended: Links added.
--- NOTE | 2024-11-16 09:46 | NUR ---
DR.ELLIS BECERRA AT BEDSIDE. NO NEW ORDERS AT THIS TIME. TO KEEP ON CLEAR LIQUIDS.
--- NOTE | 2024-11-16 10:44 | PN ---
[facility] PROGRESS NOTE Date of Service: November 16, 2024 Time of Service: 10:38 SUBJECTIVE: 11/10 patient seen at bedside, no acute events overnight. Been afebrile, hemodynamically stable, tachycardia is improving he is saturating well on room air. MRCP is pending, we will follow up with the results. Further recommendations per GI. LFTs are trending back to normal, remainder of his labs are relatively unremarkable. We will expand differential for elevated LFTs, we will order acetaminophen, salicylate levels, HIV, hepatitis panel, blood alcohol level and a drug panel and follow up. 11/11 patient seen at bedside, no acute events overnight. He has been afebrile, hemodynamically stable, saturating well on room air. MRCP showing cholelithiasis with no evidence of choledocholithiasis. T bili increased from 4.7 up to 6.2, LFT stable, similar to yesterday. General surgery does not believe it is acute cholecystitis and that is underlying liver disease however platelets and INR are normal which is not consistent with cirrhosis. This appears to be acute in nature, we will consult GI for possible ERCP as there may be sphincter dysfunction given the size of the common bile duct and the uptrending T bili. 11/12 patient seen at bedside, no acute events overnight. T bili continues to up trend, LFTs still abnormal. Discussed case with GI who recommends an EUS tomorrow determine if an ERCP we will be necessary. Patient will be made NPO after midnight 11/13 patient is seen and examined at bedside, case discussed with the RN, no acute events overnight, scheduled for possible EUS today, to determine if an ERCP we will be needed. Patient has been NPO since midnight. Total bilirubin 6.4, AST of 158, ALT of 443, alkaline phosphate 219. HIDA scan shows findings suggestive of acute cholecystitis 11/14 patient remains hemodynamically stable, BP 137/84, afebrile, saturating normal on room air. He looks jaundiced, alert oriented x3, back in the room from having ERCP. CBC with a hemoglobin 14.1, hematocrit 42.1, platelet count 143, WBC 4.1. Liver enzymes with total bilirubin worse today at 8.4 compared to yesterday at 6.4. AST 169, ALT 442, alkaline phosphatase 219. Patient remains admitted to the medical floor Continue to monitor liver enzymes in a.m. Patient takes losartan 50 mg p.o. in a.m. and 25 mg p.o. at bedtime for blood pressure control We will discontinue atorvastatin, continue to monitor liver enzymes in a.m. 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 Choledocholithiasis was found. Power chart removal was accomplished with a biliary sphincterotomy, a stent was inserted. A biliary sphincterotomy was performed. The biliary tree was swept. One covered metal stent was placed into the common bile duct. One plastic stent was placed into the ventral pancreatic duct. DIFFICULT CANNULATION/PERIAMPULLARY DIVERTICULUM-DOPPLER WIRE AFTER STENTING SMALL STONE AND SLUDGE REMOVED-APPARENT MIRIZI SYNDROME WITH A STONE COMPRESSING CBD AT LEVEL OF CYSTIC DUCT-COULD NOT PASS SPIKED SCOPE UP TO THIS LEVEL SECONDARY TO LACK OF DILATATION IN THE DISTAL CBD. 11/15 patient is seen and examined at bedside, case discussed with the RN, no acute events overnight, patient tolerating clear liquid diet, he admits mild epigastric discomfort, lipase level of 1131, total bilirubin improved from 8.4-6.6, discussed with the patient. Blood pressure 133/82, afebrile, saturating normal on room air. Patient remains admitted to the medical floor Continue to monitor liver enzymes in a.m. Continue current blood pressure management with the adjustment as needed Atorvastatin discontinued, continue to monitor liver enzymes Continue to follow amylase and lipase level in a.m. Discontinued lactulose yesterday Continue clear liquid diet Case discussed with General surgery, plan will be tentatively to take to the OR on Wednesday if the patient decides to stay in the hospital, if not patient can follow up as an outpatient and will scheduled electively. 11/16 patient is seen and examined at bedside, case discussed with the RN, no acute events overnight, patient comfortably in bed, mild epigastric discomfort earlier this morning, morphine x1 given, improvement of symptom, mildly nauseated, he is on Zofran IV as needed, hemodynamically stable, afebrile. Total bilirubin trending down 4.9, amylase greater than 4000. Discussed with the patient. We will continue to monitor liver enzymes and amylase and lipase level in a.m., discussed with the GI, continue clear liquid diet, continue to monitor for now, patient with post ERCP acute pancreatitis. Continue to follow surgical input and recommendation. REVIEW OF SYSTEMS 12 point ROS negative unless noted in HPI PHYSICAL EXAM GENERAL APPEARANCE: The patient is awake, alert, and oriented, in no acute ca rdiopulmonary distress. NEUROLOGICAL: Cranial nerves II-XII grossly intact. Motor is 5/5 in bilateral upper and lower extremities proximal to distal. No sensory deficits. HEENT: Face is symmetric. Pupils are equal and reactive. Extraocular movements are intact. NECK: Supple. No JVD. No thyromegaly. No submental, submandibular, pre- /postauricular, occipital or supraclavicular lymphadenopathy. CHEST: Normal chest expansion. No Telemetry. LUNGS: Absence of any rales, rhonchi or any wheezing. CARDIOVASCULAR: Regular. S1 and S2 normal. No appreciable rubs, murmurs or gallops. ABDOMEN: Soft, nontender, and nondistended. There is no rebound, voluntary guarding, or rigidity. : Deferred. No Weber. EXTREMITIES: Non-edematous and not cyanotic. No clubbing. Good capillary refill. SKIN: No skin breakdown. Vital Signs (last 8hr) Date Time Temp Pulse Resp B/P (MAP) Pulse Ox O2 Delivery O2 Flow Rate FiO2 11/16/24 08:21 98.1 69 18 124/88 98 Room Air 11/16/24 03:45 98.1 79 17 138/87 98 Room Air LABS: Laboratory: Test 11/16/24 06:00 Range/Units White Blood Count 7.9 4.8-10.8 K/uL Red Blood Count 4.92 4.50-6.20 MIL/uL Hemoglobin 14.0 14.0-18.0 g/dL Hematocrit 43.3 42-54 % Mean Corpuscular Volume 88.0 79-99 fL Mean Corpuscular Hemoglobin 28.5 27.0-33.0 pg Mean Corpuscular Hemoglobin Concent 32.3 32.0-36.0 g/dL Red Cell Distribution Width 13.8 11.0-15.5 % Platelet Count 132 130-400 K/uL Mean Platelet Volume 9.7 7.5-10.5 fL Nucleated Red Blood Cells 0.0 0.0-0.19 % Sodium Level 142 136-145 mmol/L Potassium Level 4.2 3.5-5.1 mmol/L Chloride Level 105 101-111 mmol/L Carbon Dioxide Level 28 21-32 mmol/L Blood Urea Nitrogen 14 7-18 mg/dL Creatinine 1.1 0.5-1.3 mg/dL Glomerular Filtration Rate Calc 86 >90 mL/min Random Glucose 99 70-105 mg/dL Total Calcium 8.9 8.5-10.1 mg/dL Magnesium Level 2.10 1.80-2.40 mg/dL Total Bilirubin 4.9 H 0.2-1.0 mg/dL Aspartate Amino Transf (AST/SGOT) 162 H 10-37 U/L Alanine Aminotransferase (ALT/SGPT) 434 H 12-78 U/L Alkaline Phosphatase 193 H 50-136 U/L Total Protein 6.3 6.0-8.3 g/dL Albumin 3.2 L 3.5-5.0 g/dL Amylase Level 555 *H 25-115 U/L Lipase 4088 *H 16-77 U/L Current Medications Medications (Trade) Dose Ordered Sig/Jong Route PRN Reason Start Time Stop Time Status Last Admin Dose Admin Acetaminophen (TYLenol 325MG TAB) 650 mg Q6H PRN PO TEMPERATURE GREATER THAN 101.5 11/09/24 21:00 12/09/24 20:59 Atorvastatin Calcium (LIPItor 40MG) 40 mg HS PO 11/12/24 21:00 11/14/24 13:02 DC Diphenhydramine HCl (BENAdryl CAP) 25 mg Q8H PRN PO ITCHING 11/12/24 11:00 12/12/24 10:59 11/12/24 11:15 25 MG Famotidine (Pepcid 20mg Tab) 20 mg DAILY PO 11/10/24 09:00 12/10/24 08:59 11/16/24 09:00 20 MG Hydralazine HCl (APRESOLine 20MG INJ) 10 mg Q6H PRN IV For:SBP above 160;DBP above 90 11/09/24 21:00 12/09/24 20:59 Lactulose (Constulose 20gm/ 30ml Udcup) 20 gm BID PO 11/09/24 21:00 11/14/24 13:02 DC 11/13/24 22:01 20 GM Losartan Potassium (CozAAR 25MG TAB) 25 mg HS PO 11/14/24 21:00 12/14/24 20:59 11/15/24 20:42 25 MG Losartan Potassium (CozAAR 50 mg TAB) 50 mg DAILY PO 11/13/24 09:00 11/14/24 13:08 DC Magnesium Sulfate 50 ml @ 0 mls/hr PROTOCOL PRN IV MAGNESIUM PROTOCOL 11/15/24 08:30 12/15/24 08:29 11/15/24 08:36 25 MLS/HR Morphine Sulfate (morPHINE 2MG SYG) 2 mg Q4H PRN IVP SEVERE PAIN (7-10) 11/09/24 21:00 11/14/24 23:59 DC 11/14/24 12:20 2 MG Morphine Sulfate (morPHINE 2MG SYG) 2 mg Q4H PRN IVP SEVERE PAIN (7-10) 11/15/24 20:30 11/22/24 20:29 11/15/24 20:42 2 MG Ondansetron HCl (zoFRAN 4MG INJ) 4 mg Q6H PRN IV NAUSEA/VOMITING 11/09/24 21:00 12/09/24 20:59 11/15/24 20:42 4 MG Piperacillin Sod/ Tazobactam Sod (Zosyn 3.375gm+NS 50ml) 3.375 gm ONCE IV 11/10/24 18:00 11/10/24 22:00 DC 11/10/24 19:15 3.375 GM Piperacillin Sod/ Tazobactam Sod (Zosyn 3.375gm+NS 50ml) 3.375 gm ZOSY8 IV 11/11/24 05:00 11/21/24 04:59 11/16/24 05:18 3.375 GM Potassium Chloride 100 ml @ 100 mls/hr AD PRN IV POTASSIUM PROTOCOL 11/15/24 08:30 12/15/24 08:29 Potassium Chloride (K-Dur/Klor-Con 20meq) 20 meq AD PRN PO POTASSIUM PROTOCOL 11/15/24 08:30 12/15/24 08:29 11/15/24 12:52 20 MEQ Potassium Chloride (KCl 10% Elixir 20meq/15ml) 20 meq AD PRN PO POTASSIUM PROTOCOL 11/15/24 08:30 12/15/24 08:29 DIAGNOSTICS / RADIOLOGY: [ ] ASSESSMENT: Acute cholecystitis, POA Transaminitis, POA Status post ERCP 11/14/2024 Post ERCP acute pancreatitis Hypertension Hyperlipidemia PLAN: Patient remains admitted to the medical floor Continue to monitor liver enzymes in a.m. continue to monitor amylase and lipase level in a.m. Continue clear liquid diet, case discussed with the GI, patient with post ERCP pancreatitis, continue to monitor Continue to follow surgical input recommendation Continue clear liquid diet, advanced as tolerated Continue current blood pressure management with the adjustment as needed Atorvastatin discontinued, continue to monitor liver enzymes NEURO: Minimize central acting medications as possible. Fall Precautions. Well lighted room through the day and minimize interruptions through the night to prevent acute delirium. PULMONARY: Supplemental 02 as needed BiPAP as necessary, for respiratory distress Titrate Fio2 to keep Spo2 > or = 90% DuoNebs and CPT as needed IS hourly while awake for pulmonary hygiene prn Out of bed to chair as tolerated Maintain aspiration precautions at all times CARDIOVASCULAR: Follow hemodynamics. Vital signs per facility protocol GI & NUTRITION: Continue nutritional support Aspirations precautions Prokinetic agents and laxatives as needed KIDNEYS & ELECTROLYTES: Strict monitoring of intake and output Daily weights Avoid nephrotoxic agents Monitor electrolytes and replace as needed Goal urine output of 30mL/hr or 0.5mL/kg/hr Medications to be dosed according to renal function. Avoid contrast if possible ENDOCRINE: Maintain blood glucose between 100-180 at all times. Insulin sliding scale for blood glucose management Hypoglycemia and hyperglycemia protocol in place INFECTIOUS DISEASE: Trend temperature, WBC and procalcitonin level Follow cultures, deescalate antibiotics as soon as possible. Panculture if new onset fever HEMATOLOGY & COAGULATION: Monitor H&H. Keep Hgb > 7 Transfuse 1 unit of PRBC for Hgb < 7 Transfuse 1 pack of platelets of platelets < 20, 000 Watch for any signs and symptoms of bleeding SKIN: Pressure ulcer prevention per facility protocol Specialty mattress as needed ORTHO/REHAB Continue PT/OT PRN: MEDICATIONS Tylenol 650 mg po every 4 hrs for fever zofran 4 mg IV every 6 hrs for n/v Hydralazine 5 mg IV every 4 hrs systolic pressure > 160 bowel regiment: lactulose 20 gm PO BID PRN constipation Supportive measures: Continue GI and DVT prophylaxis Disposition: Pending improvement in clinical condition All questions answered time spent: > 35 min JESSIE SNYDER MD November 16, 2024 10:44
--- NOTE | 2024-11-16 11:06 | NUR ---
CALLED DRGermán TO FOLLOW UP ON SURGERY. ORDERS TO REPEAT LIPASE AND LIVER FUNCTION TEST 11/17/24 MORNING. Addendum: 11/16/24 at 1109 by JANETTE RAMOS LVN LVN Amended: Links added.
[2024-11-16 13:35] LABS: HEPATITIS A IGM ANTIBODY Non-Reactive (Nonreactive); HEPATITIS B CORE IGM ANTIBODY Non-Reactive (Negative); HEPATITIS B SURFACE ANTIGEN Non-Reactive (Nonreactive); HEPATITIS C ANTIBODY Non-Reactive (Nonreactive)
[2024-11-17] VITALS (26 sets, daily range): BP systolic 103–150; BP diastolic 43–93; PULSE 57–81; RESP 14–18; TEMP 97.1–98.8; O2SAT 95
[2024-11-17 06:23] LABS: HEMATOCRIT 41.5 % (42-54); MEAN CORPUSCULAR HEMOGLOBIN 28.7 pg (27.0-33.0); RED BLOOD CELL COUNT(AUTO) 4.77 MIL/uL (4.50-6.20); RED CELL DISTRIBUTION WIDTH 13.6 % (11.0-15.5); WHITE BLOOD COUNT (AUTO) 7.2 K/uL (4.8-10.8)
[2024-11-17 06:41] LABS: ALBUMIN 3.1 g/dL (3.5-5.0); BILIRUBIN,DIRECT 4.1 mg/dL (0.0-0.3); BILIRUBIN,TOTAL 5.3 mg/dL (0.2-1.0); CREATININE 0.9 mg/dL (0.5-1.3); MAGNESIUM 1.8 mg/dL (1.80-2.40); POTASSIUM 3.5 mmol/L (3.5-5.1); TOTAL PROTEIN, SERUM 6.4 g/dL (6.0-8.3)
--- NOTE | 2024-11-17 09:40 | HMCIMG ---
CT ABDOMEN W/O CONTRAST HISTORY: Status post gallstone removal, possible pancreatitis COMPARISON: 07/20/2024 TECHNIQUE: Multiple sequential axial images of the abdomen were obtained from the dome of the diaphragm through iliac crests. Patient was not given contrast through intravenous route. Oral contrast was not given. FINDINGS: No pleural effusion is seen bilaterally. Left basilar linear atelectasis changes are seen. There is no evidence of parenchymal disease or pulmonary nodule of the visualized lower lungs. Degenerative changes are seen of the thoracolumbar spine. Liver measures 17.4 cm. Spleen measured 13 cm. There is intrahepatic biliary air. There is intrabiliary stent. Postcholecystectomy changes are seen. No definite CT evidence of acute pancreatitis is seen at this time. Lipase correlation would BE helpful. The liver, spleen, adrenal glands and pancreas are unremarkable. There is no evidence of hydronephrosis bilaterally. No evidence of renal stone is seen. Fecal material is seen in the colon. There are normal-sized retroperitoneal and mesenteric lymph nodes. No ascites is seen. Atherosclerotic changes are present. IMPRESSION: 1. There is intrahepatic biliary air. There is intrabiliary stent. Postcholecystectomy changes are seen. No definite CT evidence of acute pancreatitis is seen at this time. Lipase correlation would BE helpful. CT was performed with one or more following dose reduction techniques: automated exposure control, adjustment of the mA and kv according to patient's size, or use of a iterative reconstruction technique.
[2024-11-17] MEDS ORDERED: SUCCINYLCHOLINE CHLORIDE 20 MG/ML 10 ML VIAL ONE (11:25)
[2024-11-17] MEDS ORDERED: ondanSETRON 4MG INJ ONE (11:25)
[2024-11-17] MEDS ORDERED: dexaMETHasone SOD PHOSPHATE 10MG/ML 1ML VIAL ONE (11:25)
[2024-11-17] MEDS ORDERED: LIDOCAINE PF 100MG/5ML (2%) SYRINGE 5ML ONE (11:25)
[2024-11-17] MEDS ORDERED: proPOFol 10 MG/ML 20ML VIAL IV ONE (11:26)
[2024-11-17] MEDS ORDERED: GLYCOPYRROLATE 0.2 MG/ML 5 ML VIAL ONE (11:26)
[2024-11-17] MEDS ORDERED: NEOSTIGMINE METHYLSULFATE 1MG/ML IV ONE (11:26)
[2024-11-17] MEDS ORDERED: rocuRONium bROMide 10MG/1ML 5ML VL ONE (11:27)
[2024-11-17] MEDS ORDERED: FENTanyl CITRate PF 50 MCG/1 ML 2ML VIAL ONE ×2 (11:27→12:51)
[2024-11-17] MEDS ORDERED: MIDAZOLAM HCL 1 MG/ML 2ML VIAL ONE (11:28)
[2024-11-17] MEDS ORDERED: BUPIvacaine/PF 0.5% 30ML VIAL ONE (11:38)
[2024-11-17] MEDS: INDOCYANINE GREEN 25 MG VIAL IJ ONE (11:55)
[2024-11-17] MEDS: ZOSYN 3.375GM+NS 50ML 50 ML ONE (12:26)
--- NOTE | 2024-11-17 13:30 | PN ---
[facility] PROGRESS NOTE Date of Service: November 17, 2024 Time of Service: 13:29 SUBJECTIVE: 11/10 patient seen at bedside, no acute events overnight. Been afebrile, hemodynamically stable, tachycardia is improving he is saturating well on room air. MRCP is pending, we will follow up with the results. Further recommendations per GI. LFTs are trending back to normal, remainder of his labs are relatively unremarkable. We will expand differential for elevated LFTs, we will order acetaminophen, salicylate levels, HIV, hepatitis panel, blood alcohol level and a drug panel and follow up. 11/11 patient seen at bedside, no acute events overnight. He has been afebrile, hemodynamically stable, saturating well on room air. MRCP showing cholelithiasis with no evidence of choledocholithiasis. T bili increased from 4.7 up to 6.2, LFT stable, similar to yesterday. General surgery does not believe it is acute cholecystitis and that is underlying liver disease however platelets and INR are normal which is not consistent with cirrhosis. This appears to be acute in nature, we will consult GI for possible ERCP as there may be sphincter dysfunction given the size of the common bile duct and the uptrending T bili. 11/12 patient seen at bedside, no acute events overnight. T bili continues to up trend, LFTs still abnormal. Discussed case with GI who recommends an EUS tomorrow determine if an ERCP we will be necessary. Patient will be made NPO after midnight 11/13 patient is seen and examined at bedside, case discussed with the RN, no acute events overnight, scheduled for possible EUS today, to determine if an ERCP we will be needed. Patient has been NPO since midnight. Total bilirubin 6.4, AST of 158, ALT of 443, alkaline phosphate 219. HIDA scan shows findings suggestive of acute cholecystitis 11/14 patient remains hemodynamically stable, BP 137/84, afebrile, saturating normal on room air. He looks jaundiced, alert oriented x3, back in the room from having ERCP. CBC with a hemoglobin 14.1, hematocrit 42.1, platelet count 143, WBC 4.1. Liver enzymes with total bilirubin worse today at 8.4 compared to yesterday at 6.4. AST 169, ALT 442, alkaline phosphatase 219. Patient remains admitted to the medical floor Continue to monitor liver enzymes in a.m. Patient takes losartan 50 mg p.o. in a.m. and 25 mg p.o. at bedtime for blood pressure control We will discontinue atorvastatin, continue to monitor liver enzymes in a.m. 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 Choledocholithiasis was found. Power chart removal was accomplished with a biliary sphincterotomy, a stent was inserted. A biliary sphincterotomy was performed. The biliary tree was swept. One covered metal stent was placed into the common bile duct. One plastic stent was placed into the ventral pancreatic duct. DIFFICULT CANNULATION/PERIAMPULLARY DIVERTICULUM-DOPPLER WIRE AFTER STENTING SMALL STONE AND SLUDGE REMOVED-APPARENT MIRIZI SYNDROME WITH A STONE COMPRESSING CBD AT LEVEL OF CYSTIC DUCT-COULD NOT PASS SPIKED SCOPE UP TO THIS LEVEL SECONDARY TO LACK OF DILATATION IN THE DISTAL CBD. 11/15 patient is seen and examined at bedside, case discussed with the RN, no acute events overnight, patient tolerating clear liquid diet, he admits mild epigastric discomfort, lipase level of 1131, total bilirubin improved from 8.4-6.6, discussed with the patient. Blood pressure 133/82, afebrile, saturating normal on room air. Patient remains admitted to the medical floor Continue to monitor liver enzymes in a.m. Continue current blood pressure management with the adjustment as needed Atorvastatin discontinued, continue to monitor liver enzymes Continue to follow amylase and lipase level in a.m. Discontinued lactulose yesterday Continue clear liquid diet Case discussed with General surgery, plan will be tentatively to take to the OR on Wednesday if the patient decides to stay in the hospital, if not patient can follow up as an outpatient and will scheduled electively. 11/16 patient is seen and examined at bedside, case discussed with the RN, no acute events overnight, patient comfortably in bed, mild epigastric discomfort earlier this morning, morphine x1 given, improvement of symptom, mildly nauseated, he is on Zofran IV as needed, hemodynamically stable, afebrile. Total bilirubin trending down 4.9, amylase greater than 4000. Discussed with the patient. We will continue to monitor liver enzymes and amylase and lipase level in a.m., discussed with the GI, continue clear liquid diet, continue to monitor for now, patient with post ERCP acute pancreatitis. Continue to follow surgical input and recommendation. 11/17 power chart reviewed, vital signs, laboratory tests, imaging tests and medications reviewed, case discussed with the RN, patient is scheduled for laparoscopic cholecystectomy today, we will continue to follow liver enzymes to include total bilirubin, AST and ALT. Continue current pain medication with the adjustment as needed. Continue to follow surgical input and recommendation. Possible discharge home over the weekend. REVIEW OF SYSTEMS 12 point ROS negative unless noted in HPI PHYSICAL EXAM GENERAL APPEARANCE: The patient is awake, alert, and oriented, in no acute cardiopulmonary distress. NEUROLOGICAL: Cranial nerves II-XII grossly intact. Motor is 5/5 in bilateral upper and lower extremities proximal to distal. No sensory deficits. HEENT: Face is symmetric. Pupils are equal and reactive. Extraocular movements are intact. NECK: Supple. No JVD. No thyromegaly. No submental, submandibular, pre-/posta uricular, occipital or supraclavicular lymphadenopathy. CHEST: Normal chest expansion. No Telemetry. LUNGS: Absence of any rales, rhonchi or any wheezing. CARDIOVASCULAR: Regular. S1 and S2 normal. No appreciable rubs, murmurs or gallops. ABDOMEN: Soft, nontender, and nondistended. There is no rebound, voluntary guarding, or rigidity. : Deferred. No Weber. EXTREMITIES: Non-edematous and not cyanotic. No clubbing. Good capillary refill. SKIN: No skin breakdown. Vital Signs (last 8hr) Date Time Temp Pulse Resp B/P (MAP) Pulse Ox O2 Delivery O2 Flow Rate FiO2 11/17/24 12:18 98.1 79 18 134/93 97 Room Air 11/17/24 08:30 98.1 70 14 123/85 95 Room Air LABS: Laboratory: Test 11/17/24 06:11 Range/Units White Blood Count 7.2 4.8-10.8 K/uL Red Blood Count 4.77 4.50-6.20 MIL/uL Hemoglobin 13.7 L 14.0-18.0 g/dL Hematocrit 41.5 L 42-54 % Mean Corpuscular Volume 87.0 79-99 fL Mean Corpuscular Hemoglobin 28.7 27.0-33.0 pg Mean Corpuscular Hemoglobin Concent 33.0 32.0-36.0 g/dL Red Cell Distribution Width 13.6 11.0-15.5 % Platelet Count 138 130-400 K/uL Mean Platelet Volume 9.4 7.5-10.5 fL Nucleated Red Blood Cells 0.0 0.0-0.19 % Sodium Level 140 136-145 mmol/L Potassium Level 3.5 3.5-5.1 mmol/L Chloride Level 104 101-111 mmol/L Carbon Dioxide Level 25 21-32 mmol/L Blood Urea Nitrogen 11 7-18 mg/dL Creatinine 0.9 0.5-1.3 mg/dL Glomerular Filtration Rate Calc 110 >90 mL/min Random Glucose 106 H 70-105 mg/dL Total Calcium 9.0 8.5-10.1 mg/dL Magnesium Level 1.80 1.80-2.40 mg/dL Total Bilirubin 5.3 H 0.2-1.0 mg/dL Direct Bilirubin 4.1 H 0.0-0.3 mg/dL Aspartate Amino Transf (AST/SGOT) 174 H 10-37 U/L Alanine Aminotransferase (ALT/SGPT) 447 H 12-78 U/L Alkaline Phosphatase 189 H 50-136 U/L Total Protein 6.4 6.0-8.3 g/dL Albumin 3.1 L 3.5-5.0 g/dL Amylase Level 239 #H 25-115 U/L Lipase 1054 *H 16-77 U/L Current Medications Medications (Trade) Dose Ordered Sig/Jong Route PRN Reason Start Time Stop Time Status Last Admin Dose Admin Acetaminophen (TYLenol 325MG TAB) 650 mg Q6H PRN PO TEMPERATURE GREATER THAN 101.5 11/09/24 21:00 12/09/24 20:59 Atorvastatin Calcium (LIPItor 40MG) 40 mg HS PO 11/12/24 21:00 11/14/24 13:02 DC Diphenhydramine HCl (BENAdryl CAP) 25 mg Q8H PRN PO ITCHING 11/12/24 11:00 12/12/24 10:59 11/12/24 11:15 25 MG Famotidine (Pepcid 20mg Tab) 20 mg DAILY PO 11/10/24 09:00 12/10/24 08:59 11/16/24 09:00 20 MG Hydralazine HCl (APRESOLine 20MG INJ) 10 mg Q6H PRN IV For:SBP above 160;DBP above 90 11/09/24 21:00 12/09/24 20:59 Lactulose (Constulose 20gm/ 30ml Udcup) 20 gm BID PO 11/09/24 21:00 11/14/24 13:02 DC 11/13/24 22:01 20 GM Losartan Potassium (CozAAR 25MG TAB) 25 mg HS PO 11/14/24 21:00 12/14/24 20:59 11/16/24 22:01 25 MG Losartan Potassium (CozAAR 50 mg TAB) 50 mg DAILY PO 11/13/24 09:00 11/14/24 13:08 DC Magnesium Sulfate 50 ml @ 0 mls/hr PROTOCOL PRN IV MAGNESIUM PROTOCOL 11/15/24 08:30 12/15/24 08:29 11/15/24 08:36 25 MLS/HR Morphine Sulfate (morPHINE 2MG SYG) 2 mg Q4H PRN IVP SEVERE PAIN (7-10) 11/09/24 21:00 11/14/24 23:59 DC 11/14/24 12:20 2 MG Morphine Sulfate (morPHINE 2MG SYG) 2 mg Q4H PRN IVP SEVERE PAIN (7-10) 11/15/24 20:30 11/22/24 20:29 11/15/24 20:42 2 MG Ondansetron HCl (zoFRAN 4MG INJ) 4 mg Q6H PRN IV NAUSEA/VOMITING 11/09/24 21:00 12/09/24 20:59 11/15/24 20:42 4 MG Piperacillin Sod/ Tazobactam Sod (Zosyn 3.375gm+NS 50ml) 3.375 gm ONCE IV 11/10/24 18:00 11/10/24 22:00 DC 11/10/24 19:15 3.375 GM Piperacillin Sod/ Tazobactam Sod (Zosyn 3.375gm+NS 50ml) 3.375 gm ZOSY8 IV 11/11/24 05:00 11/21/24 04:59 11/17/24 05:08 3.375 GM Potassium Chloride 100 ml @ 100 mls/hr AD PRN IV POTASSIUM PROTOCOL 11/15/24 08:30 12/15/24 08:29 Potassium Chloride (K-Dur/Klor-Con 20meq) 20 meq AD PRN PO POTASSIUM PROTOCOL 11/15/24 08:30 12/15/24 08:29 11/15/24 12:52 20 MEQ Potassium Chloride (KCl 10% Elixir 20meq/15ml) 20 meq AD PRN PO POTASSIUM PROTOCOL 11/15/24 08:30 12/15/24 08:29 DIAGNOSTICS / RADIOLOGY: [ ] ASSESSMENT: Acute cholecystitis, POA Transaminitis, POA Status post ERCP 11/14/2024 Post ERCP acute pancreatitis Hypertension Hyperlipidemia PLAN: Patient remains admitted to the medical floor Continue to monitor liver enzymes in a.m. Continue to follow surgical input and recommendation. NEURO: Minimize central acting medications as possible. Fall Precautions. Well lighted room through the day and minimize interruptions through the night to prevent acute delirium. PULMONARY: Supplemental 02 as needed BiPAP as necessary, for respiratory distress Titrate Fio2 to keep Spo2 > or = 90% DuoNebs and CPT as needed IS hourly while awake for pulmonary hygiene prn Out of bed to chair as tolerated Maintain aspiration precautions at all times CARDIOVASCULAR: Follow hemodynamics. Vital signs per facility protocol GI & NUTRITION: Continue nutritional support Aspirations precautions Prokinetic agents and laxatives as needed KIDNEYS & ELECTROLYTES: Strict monitoring of intake and output Daily weights Avoid nephrotoxic agents Monitor electrolytes and replace as needed Goal urine output of 30mL/hr or 0.5mL/kg/hr Medications to be dosed according to renal function. Avoid contrast if possible ENDOCRINE: Maintain blood glucose between 100-180 at all times. Insulin sliding scale for blood glucose management Hypoglycemia and hyperglycemia protocol in place INFECTIOUS DISEASE: Trend temperature, WBC and procalcitonin level Follow cultures, deescalate antibiotics as soon as possible. Panculture if new onset fever HEMATOLOGY & COAGULATION: Monitor H&H. Keep Hgb > 7 Transfuse 1 unit of PRBC for Hgb < 7 Transfuse 1 pack of platelets of platelets < 20, 000 Watch for any signs and symptoms of bleeding SKIN: Pressure ulcer prevention per facility protocol Specialty mattress as needed ORTHO/REHAB Continue PT/OT PRN: MEDICATIONS Tylenol 650 mg po every 4 hrs for fever zofran 4 mg IV every 6 hrs for n/v Hydralazine 5 mg IV every 4 hrs systolic pressure > 160 bowel regiment: lactulose 20 gm PO BID PRN constipation Supportive measures: Continue GI and DVT prophylaxis Disposition: Pending improvement in clinical condition All questions answered time spent: > 35 min JESSIE SNYDER MD November 17, 2024 13:30
[2024-11-17] MEDS: BUPIvacaine/PF 0.5% 30ML VIAL INJ ONE (13:36)
[2024-11-17] MEDS: acetaMINOPHEN 100 ML ONE (14:36)
[2024-11-17] MEDS ORDERED: HYDROcodone/acetaMINOPHEN 7.5/325 MG TAB PO PRN (19:00)
[2024-11-18] VITALS: BP 129/72; PULSE 48; RESP 17; TEMP 97.9
[2024-11-18] MEDS ORDERED: PHARMACY COMMUNICATION MISC SCH (02:00)
[2024-11-18] MEDS ORDERED: HYDROcodone/APAP 5/325 1 TAB TABLET PO PRN (02:30)
--- NOTE | 2024-11-18 03:47 | OP ---
DATE OF PROCEDURE: 11/17/2024 PREOPERATIVE DIAGNOSES: Choledocholithiasis with pancreatitis post ERCP and cholecystitis. POSTOPERATIVE DIAGNOSES: Choledocholithiasis with pancreatitis post ERCP and cholecystitis. PROCEDURE: Laparoscopic cholecystectomy. ANESTHESIA: General. BLOOD LOSS: Less than 25 mL. SPECIMENS: Gallbladder, stones, and culture. DESCRIPTION OF PROCEDURE: The patient was brought to the operating room. He was on antibiotics, prepped and draped in normal sterile fashion after endotracheally intubating the patient. He was explored through a 1-cm supraumbilical incision, which was bluntly dissected down to the fascia. A Veress needle was placed into the intraabdominal cavity with negative aspiration and free flow of fluid. The abdomen was insufflated with CO2 to 15 mmHg. The gallbladder was noted to be mildly distended, but despite aspiration, very little came out. The gallbladder was grasped at the fundus; however, due to the large stone in the neck of the gallbladder, the infundibulum was having difficulty being grasped and this did tear at a point. The infundibulum was explored. There was very, very adherent inflammatory tissue. After meticulous dissection, the cystic duct was able to finally be dissected free and a single Ligaclip was able to be placed across the cystic duct. The gallbladder was then taken down from top to bottom. Prior to amputating the final attachments, hemostasis was ensured. The gallbladder was amputated at the neck of the gallbladder, taking care to clip any residual tissue. This was placed in the Endobag and brought out through the epigastric incision. Lap and needle count was correct. Hemostasis was ensured. The abdomen was suctioned dry and trocars were removed. The larger incisions were closed with interrupted Vicryl sutures. Marcaine and lalitha were used for the skin. The patient tolerated the procedure. TID: [id number] RECEIPT: [id number]
[2024-11-18 04:00] VITALS: BP 141/83; PULSE 61; RESP 17; TEMP 97.6
[2024-11-18 05:50] LABS: HEMATOCRIT 41.4 % (42-54); IMMATURE GRANULOCYTE ABSOLUTE 0.06 K/uL (0-1); LYMPHOCYTES # (AUTO) 0.5 K/uL (1.0-4.8); LYMPHOCYTES % (AUTO) 5.3 % (21.0-51.0); MEAN CORPUSCULAR HEMOGLOBIN 28.6 pg (27.0-33.0); MEAN CORPUSCULAR HGB CONC 32.9 g/dL (32.0-36.0); MONOCYTES # (AUTO) 0.5 K/uL (0.1-1.0); MONOCYTES % (AUTO) 5.9 % (3.0-13.0); NEUTROPHILS # (AUTO) 7.7 K/uL (1.8-7.7); NEUTROPHILS % (AUTO) 88.1 % (40.0-77.0); PLATELET COUNT (AUTO) 151 K/uL (130-400); RED BLOOD CELL COUNT(AUTO) 4.76 MIL/uL (4.50-6.20); RED CELL DISTRIBUTION WIDTH 13.2 % (11.0-15.5); WHITE BLOOD COUNT (AUTO) 8.7 K/uL (4.8-10.8)
[2024-11-18 06:11] LABS: ALBUMIN 2.8 g/dL (3.5-5.0); BILIRUBIN,DIRECT 3.8 mg/dL (0.0-0.3); BILIRUBIN,TOTAL 4.6 mg/dL (0.2-1.0); CREATININE 0.7 mg/dL (0.5-1.3); MAGNESIUM 1.8 mg/dL (1.80-2.40); POTASSIUM 4.2 mmol/L (3.5-5.1); TOTAL PROTEIN, SERUM 6.4 g/dL (6.0-8.3)
[2024-11-18 08:04] VITALS: BP 141/79; PULSE 76; RESP 19; TEMP 97.8
[2024-11-18 10:02] VITALS: O2SAT 96
--- NOTE | 2024-11-18 10:04 | PN ---
[facility] PROGRESS NOTE Date of Service: November 18, 2024 Time of Service: 10:00 SUBJECTIVE: 11/10 patient seen at bedside, no acute events overnight. Been afebrile, hemodynamically stable, tachycardia is improving he is saturating well on room air. MRCP is pending, we will follow up with the results. Further recommendations per GI. LFTs are trending back to normal, remainder of his labs are relatively unremarkable. We will expand differential for elevated LFTs, we will order acetaminophen, salicylate levels, HIV, hepatitis panel, blood alcohol level and a drug panel and follow up. 11/11 patient seen at bedside, no acute events overnight. He has been afebrile, hemodynamically stable, saturating well on room air. MRCP showing cholelithiasis with no evidence of choledocholithiasis. T bili increased from 4.7 up to 6.2, LFT stable, similar to yesterday. General surgery does not believe it is acute cholecystitis and that is underlying liver disease however platelets and INR are normal which is not consistent with cirrhosis. This appears to be acute in nature, we will consult GI for possible ERCP as there may be sphincter dysfunction given the size of the common bile duct and the uptrending T bili. 11/12 patient seen at bedside, no acute events overnight. T bili continues to up trend, LFTs still abnormal. Discussed case with GI who recommends an EUS tomorrow determine if an ERCP we will be necessary. Patient will be made NPO after midnight 11/13 patient is seen and examined at bedside, case discussed with the RN, no acute events overnight, scheduled for possible EUS today, to determine if an ERCP we will be needed. Patient has been NPO since midnight. Total bilirubin 6.4, AST of 158, ALT of 443, alkaline phosphate 219. HIDA scan shows findings suggestive of acute cholecystitis 11/14 patient remains hemodynamically stable, BP 137/84, afebrile, saturating normal on room air. He looks jaundiced, alert oriented x3, back in the room from having ERCP. CBC with a hemoglobin 14.1, hematocrit 42.1, platelet count 143, WBC 4.1. Liver enzymes with total bilirubin worse today at 8.4 compared to yesterday at 6.4. AST 169, ALT 442, alkaline phosphatase 219. Patient remains admitted to the medical floor Continue to monitor liver enzymes in a.m. Patient takes losartan 50 mg p.o. in a.m. and 25 mg p.o. at bedtime for blood pressure control We will discontinue atorvastatin, continue to monitor liver enzymes in a.m. 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 Choledocholithiasis was found. Power chart removal was accomplished with a biliary sphincterotomy, a stent was inserted. A biliary sphincterotomy was performed. The biliary tree was swept. One covered metal stent was placed into the common bile duct. One plastic stent was placed into the ventral pancreatic duct. DIFFICULT CANNULATION/PERIAMPULLARY DIVERTICULUM-DOPPLER WIRE AFTER STENTING SMALL STONE AND SLUDGE REMOVED-APPARENT MIRIZI SYNDROME WITH A STONE COMPRESSING CBD AT LEVEL OF CYSTIC DUCT-COULD NOT PASS SPIKED SCOPE UP TO THIS LEVEL SECONDARY TO LACK OF DILATATION IN THE DISTAL CBD. 11/15 patient is seen and examined at bedside, case discussed with the RN, no acute events overnight, patient tolerating clear liquid diet, he admits mild epigastric discomfort, lipase level of 1131, total bilirubin improved from 8.4-6.6, discussed with the patient. Blood pressure 133/82, afebrile, saturating normal on room air. Patient remains admitted to the medical floor Continue to monitor liver enzymes in a.m. Continue current blood pressure management with the adjustment as needed Atorvastatin discontinued, continue to monitor liver enzymes Continue to follow amylase and lipase level in a.m. Discontinued lactulose yesterday Continue clear liquid diet Case discussed with General surgery, plan will be tentatively to take to the OR on Wednesday if the patient decides to stay in the hospital, if not patient can follow up as an outpatient and will scheduled electively. 11/16 patient is seen and examined at bedside, case discussed with the RN, no acute events overnight, patient comfortably in bed, mild epigastric discomfort earlier this morning, morphine x1 given, improvement of symptom, mildly nauseated, he is on Zofran IV as needed, hemodynamically stable, afebrile. Total bilirubin trending down 4.9, amylase greater than 4000. Discussed with the patient. We will continue to monitor liver enzymes and amylase and lipase level in a.m., discussed with the GI, continue clear liquid diet, continue to monitor for now, patient with post ERCP acute pancreatitis. Continue to follow surgical input and recommendation. 11/17 power chart reviewed, vital signs, laboratory tests, imaging tests and medications reviewed, case discussed with the RN, patient is scheduled for laparoscopic cholecystectomy today, we will continue to follow liver enzymes to include total bilirubin, AST and ALT. Continue current pain medication with the adjustment as needed. Continue to follow surgical input and recommendation. Possible discharge home over the weekend. 11/18 patient remains admitted to the medical floor, status post laparoscopic cholecystectomy 11/17/2024, tolerated the procedure well. Blood pressure 141/79, afebrile, saturating normal on room air. Hemoglobin 13.6, hematocrit 41.4. Total bilirubin today trended down 4.6, AST of 196, ALT of 472, alkaline phos 171. The patient is alert oriented x3, denies chest pain, denied shortness for breath, no nausea, no vomiting, no abdominal pain, case discussed with general surgery, okay for the patient to be discharged home today and follow up as an outpatient. And indication to repeat LFTs has been given by General surgery to do one day prior to outpatient visit. Patient understood the info rmation provided. REVIEW OF SYSTEMS 12 point ROS negative unless noted in HPI PHYSICAL EXAM GENERAL APPEARANCE: The patient is awake, alert, and oriented, in no acute cardiopulmonary distress. NEUROLOGICAL: Cranial nerves II-XII grossly intact. Motor is 5/5 in bilateral upper and lower extremities proximal to distal. No sensory deficits. HEENT: Face is symmetric. Pupils are equal and reactive. Extraocular movements are intact. NECK: Supple. No JVD. No thyromegaly. No submental, submandibular, pre- /postauricular, occipital or supraclavicular lymphadenopathy. CHEST: Normal chest expansion. No Telemetry. LUNGS: Absence of any rales, rhonchi or any wheezing. CARDIOVASCULAR: Regular. S1 and S2 normal. No appreciable rubs, murmurs or gallops. ABDOMEN: Soft, nontender, and nondistended. There is no rebound, voluntary guarding, or rigidity. : Deferred. No Weber. EXTREMITIES: Non-edematous and not cyanotic. No clubbing. Good capillary refill. SKIN: No skin breakdown. Vital Signs (last 8hr) Date Time Temp Pulse Resp B/P (MAP) Pulse Ox O2 Delivery O2 Flow Rate FiO2 11/18/24 08:04 97.9 76 19 141/79 96 Room Air 11/18/24 04:00 97.5 61 17 141/83 97 Room Air LABS: Laboratory: Test 11/18/24 05:40 11/17/24 06:11 Range/Units White Blood Count 8.7 4.8-10.8 K/uL Red Blood Count 4.76 4.50-6.20 MIL/uL Hemoglobin 13.6 L 14.0-18.0 g/dL Hematocrit 41.4 L 42-54 % Mean Corpuscular Volume 87.0 79-99 fL Mean Corpuscular Hemoglobin 28.6 27.0-33.0 pg Mean Corpuscular Hemoglobin Concent 32.9 32.0-36.0 g/dL Red Cell Distribution Width 13.2 11.0-15.5 % Platelet Count 151 130-400 K/uL Mean Platelet Volume 9.5 7.5-10.5 fL Immature Granulocyte % (Auto) 0.7 0-1 % Neutrophils (%) (Auto) 88.1 H 40.0-77.0 % Lymphocytes (%) (Auto) 5.3 L 21.0-51.0 % Monocytes (%) (Auto) 5.9 3.0-13.0 % Eosinophils (%) (Auto) 0.0 0.0-8.0 % Basophils (%) (Auto) 0.0 0.0-5.0 % Neutrophils # (Auto) 7.7 1.8-7.7 K/uL Lymphocytes # (Auto) 0.5 L 1.0-4.8 K/uL Monocytes # (Auto) 0.5 0.1-1.0 K/uL Eosinophils # (Auto) 0.00 0.00-0.70 K/uL Basophils # (Auto) 0.00 0.00-0.20 K/uL Absolute Immature Granulocyte (auto 0.06 0-1 K/uL Nucleated Red Blood Cells 0.0 0.0-0.19 % White Cell Morphology Comment See comments Sodium Level 138 136-145 mmol/L Potassium Level 4.2 3.5-5.1 mmol/L Chloride Level 103 101-111 mmol/L Carbon Dioxide Level 27 21-32 mmol/L Blood Urea Nitrogen 14 7-18 mg/dL Creatinine 0.7 0.5-1.3 mg/dL Glomerular Filtration Rate Calc 119 >90 mL/min Random Glucose 122 H 70-105 mg/dL Total Calcium 9.3 8.5-10.1 mg/dL Magnesium Level 1.80 1.80-2.40 mg/dL Total Bilirubin 4.6 H 0.2-1.0 mg/dL Direct Bilirubin 3.8 H 0.0-0.3 mg/dL Aspartate Amino Transf (AST/SGOT) 196 H 10-37 U/L Alanine Aminotransferase (ALT/SGPT) 472 H 12-78 U/L Alkaline Phosphatase 171 H 50-136 U/L Total Protein 6.4 6.0-8.3 g/dL Albumin 2.8 L 3.5-5.0 g/dL Amylase Level 239 #H 25-115 U/L Lipase 1054 *H 16-77 U/L Current Medications Medications (Trade) Dose Ordered Sig/Jong Route PRN Reason Start Time Stop Time Status Last Admin Dose Admin Acetaminophen (TYLenol 325MG TAB) 650 mg Q6H PRN PO TEMPERATURE GREATER THAN 101.5 11/09/24 21:00 12/09/24 20:59 Acetaminophen/ Hydrocodone Bitart (NORco 5/325MG) 1 tab Q4H PRN PO MODERATE PAIN (4-6) 11/18/24 02:30 11/23/24 02:29 Acetaminophen/ Hydrocodone Bitart (VicoDIN ES/ NORco ES 7.5/ 325MG) 1 tab Q4H PRN PO MODERATE PAIN (4-6) 11/17/24 19:00 11/18/24 02:09 DC Atorvastatin Calcium (LIPItor 40MG) 40 mg HS PO 11/12/24 21:00 11/14/24 13:02 DC Diphenhydramine HCl (BENAdryl CAP) 25 mg Q8H PRN PO ITCHING 11/12/24 11:00 12/12/24 10:59 11/12/24 11:15 25 MG Famotidine (Pepcid 20mg Tab) 20 mg DAILY PO 11/10/24 09:00 12/10/24 08:59 11/16/24 09:00 20 MG Hydralazine HCl (APRESOLine 20MG INJ) 10 mg Q6H PRN IV For:SBP above 160;DBP above 90 11/09/24 21:00 12/09/24 20:59 Lactulose (Constulose 20gm/ 30ml Udcup) 20 gm BID PO 11/09/24 21:00 11/14/24 13:02 DC 11/13/24 22:01 20 GM Losartan Potassium (CozAAR 25MG TAB) 25 mg HS PO 11/14/24 21:00 12/14/24 20:59 11/17/24 22:31 25 MG Losartan Potassium (CozAAR 50 mg TAB) 50 mg DAILY PO 11/13/24 09:00 11/14/24 13:08 DC Magnesium Sulfate 50 ml @ 0 mls/hr PROTOCOL PRN IV MAGNESIUM PROTOCOL 11/15/24 08:30 12/15/24 08:29 11/15/24 08:36 25 MLS/HR Morphine Sulfate (morPHINE 2MG SYG) 2 mg Q4H PRN IVP SEVERE PAIN (7-10) 11/09/24 21:00 11/14/24 23:59 DC 11/14/24 12:20 2 MG Morphine Sulfate (morPHINE 2MG SYG) 2 mg Q4H PRN IVP SEVERE PAIN (7-10) 11/15/24 20:30 11/22/24 20:29 11/15/24 20:42 2 MG Ondansetron HCl (zoFRAN 4MG INJ) 4 mg Q6H PRN IV NAUSEA/VOMITING 11/09/24 21:00 12/09/24 20:59 11/15/24 20:42 4 MG Pharmacy Profile Note (Pharmacy Communication) 1 each ONCE MISC 11/18/24 02:00 11/18/24 02:10 DC Piperacillin Sod/ Tazobactam Sod (Zosyn 3.375gm+NS 50ml) 3.375 gm ONCE IV 11/10/24 18:00 11/10/24 22:00 DC 11/10/24 19:15 3.375 GM Piperacillin Sod/ Tazobactam Sod (Zosyn 3.375gm+NS 50ml) 3.375 gm ZOSY8 IV 11/11/24 05:00 11/21/24 04:59 11/18/24 06:05 3.375 GM Potassium Chloride 100 ml @ 100 mls/hr AD PRN IV POTASSIUM PROTOCOL 11/15/24 08:30 12/15/24 08:29 Potassium Chloride (K-Dur/Klor-Con 20meq) 20 meq AD PRN PO POTASSIUM PROTOCOL 11/15/24 08:30 12/15/24 08:29 11/15/24 12:52 20 MEQ Potassium Chloride (KCl 10% Elixir 20meq/15ml) 20 meq AD PRN PO POTASSIUM PROTOCOL 11/15/24 08:30 12/15/24 08:29 DIAGNOSTICS / RADIOLOGY: [ ] ASSESSMENT: Acute cholecystitis, POA Post laparoscopic cholecystectomy 11/17/2024 Transaminitis, POA Status post ERCP 11/14/2024 (ERCP done reported as follows: 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 Choledocholithiasis was found. Power chart removal was accomplished with a biliary sphincterotomy, a stent was inserted. A biliary sphincterotomy was performed. The biliary tree was swept. One covered metal stent was placed into the common bile duct. One plastic stent was placed into the ventral pancreatic duct. DIFFICULT CANNULATION/PERIAMPULLARY DIVERTICULUM-DOPPLER WIRE AFTER STENTING SMALL STONE AND SLUDGE REMOVED-APPARENT MIRIZI SYNDROME WITH A STONE COMPRESSING CBD AT LEVEL OF CYSTIC DUCT-COULD NOT PASS SPIKED SCOPE UP TO THIS LEVEL SECONDARY TO LACK OF DILATATION IN THE DISTAL CBD.) Post ERCP acute pancreatitis Hypertension Hyperlipidemia PLAN: Case discussed with general surgery, okay for the patient to be discharged home today. NEURO: Minimize central acting medications as possible. Fall Precautions. Well lighted room through the day and minimize interruptions through the night to prevent acute delirium. PULMONARY: Supplemental 02 as needed BiPAP as necessary, for respiratory distress Titrate Fio2 to keep Spo2 > or = 90% DuoNebs and CPT as needed IS hourly while awake for pulmonary hygiene prn Out of bed to chair as tolerated Maintain aspiration precautions at all times CARDIOVASCULAR: Follow hemodynamics. Vital signs per facility protocol GI & NUTRITION: Continue nutritional support Aspirations precautions Prokinetic agents and laxatives as needed KIDNEYS & ELECTROLYTES: Strict monitoring of intake and output Daily weights Avoid nephrotoxic agents Monitor electrolytes and replace as needed Goal urine output of 30mL/hr or 0.5mL/kg/hr Medications to be dosed according to renal function. Avoid contrast if possible ENDOCRINE: Maintain blood glucose between 100-180 at all times. Insulin sliding scale for blood glucose management Hypoglycemia and hyperglycemia protocol in place INFECTIOUS DISEASE: Trend temperature, WBC and procalcitonin level Follow cultures, deescalate antibiotics as soon as possible. Panculture if new onset fever HEMATOLOGY & COAGULATION: Monitor H&H. Keep Hgb > 7 Transfuse 1 unit of PRBC for Hgb < 7 Transfuse 1 pack of platelets of platelets < 20, 000 Watch for any signs and symptoms of bleeding SKIN: Pressure ulcer prevention per facility protocol Specialty mattress as needed ORTHO/REHAB Continue PT/OT PRN: MEDICATIONS Tylenol 650 mg po every 4 hrs for fever zofran 4 mg IV every 6 hrs for n/v Hydralazine 5 mg IV every 4 hrs systolic pressure > 160 bowel regiment: lactulose 20 gm PO BID PRN constipation Supportive measures: Continue GI and DVT prophylaxis Disposition: Pending improvement in clinical condition All questions answered time spent: > 35 min JESSIE SNYDER MD November 18, 2024 10:04
[2024-11-18] MEDS ORDERED: ACET-2079 PO (10:30)
--- NOTE | 2024-11-18 10:39 | PN ---
pt tolerating po abdomen soft incision intact lft coming down d/c home low fat diet fu lft as outpt rx sent Vitals/Labs Vital Signs Date Time Temp Pulse Resp B/P (MAP) Pulse Ox O2 Delivery O2 Flow Rate FiO2 11/18/24 08:04 97.9 76 19 141/79 96 Room Air 11/17/24 19:30 0 21 Laboratory Tests 11/18/24 05:40 Medications Current Medications Sodium Chloride 1,000 ml @ 0 mls/hr ONCE ONCE IV Last administered on 11/09/24at 19:50; Start 11/09/24 at 18:30; Stop 11/09/24 at 18:31; Status DC Morphine Sulfate 4 mg ONCE ONCE IVP Last administered on 11/09/24at 19:49; Start 11/09/24 at 18:30; Stop 11/09/24 at 18:31; Status DC Ondansetron HCl 4 mg ONCE ONCE IVP Last administered on 11/09/24at 19:49; Start 11/09/24 at 18:30; Stop 11/09/24 at 18:31; Status DC Lactulose 20 gm BID PO Last administered on 11/13/24at 22:01; Start 11/09/24 at 21:00; Stop 11/14/24 at 13:02; Status DC Acetaminophen 650 mg Q6H PRN PO; Start 11/09/24 at 21:00; Stop 12/09/24 at 20:59 Famotidine 20 mg DAILY PO Last administered on 11/18/24at 10:02; Start 11/10/24 at 09:00; Stop 12/10/24 at 08:59 Hydralazine HCl 10 mg Q6H PRN IV; Start 11/09/24 at 21:00; Stop 12/09/24 at 20:59 Morphine Sulfate 2 mg Q4H PRN IVP Last administered on 11/14/24at 12:20; Start 11/09/24 at 21:00; Stop 11/14/24 at 23:59; Status DC Ondansetron HCl 4 mg Q6H PRN IV Last administered on 11/15/24at 20:42; Start 11/09/24 at 21:00; Stop 12/09/24 at 20:59 Piperacillin Sod/ Tazobactam Sod 3.375 gm ZOSY8 IV Last administered on 11/18/24at 06:05; Start 11/11/24 at 05:00; Stop 11/21/24 at 04:59 Piperacillin Sod/ Tazobactam Sod 3.375 gm ONCE IV Last administered on 11/10/24at 19:15; Start 11/10/24 at 18:00; Stop 11/10/24 at 22:00; Status DC Diphenhydramine HCl 25 mg Q8H PRN PO Last administered on 11/12/24at 11:15; Start 11/12/24 at 11:00; Stop 12/12/24 at 10:59 Losartan Potassium 50 mg DAILY PO; Start 11/13/24 at 09:00; Stop 11/14/24 at 13:08; Status DC Atorvastatin Calcium 40 mg HS PO; Start 11/12/24 at 21:00; Stop 11/14/24 at 13:02; Status DC Propofol 200 mg STK-MED ONCE IV; Start 11/13/24 at 12:55; Stop 11/13/24 at 12:56; Status DC Lidocaine HCl 20 ml STK-MED ONCE .ROUTE; Start 11/13/24 at 12:56; Stop 11/13/24 at 12:56; Status DC Indomethacin 100 mg ONCE ONCE RC Last administered on 11/14/24at 08:34; Start 11/14/24 at 07:00; Stop 11/14/24 at 07:01; Status DC Rocuronium [place] 50 mg STK-MED ONCE .ROUTE; Start 11/14/24 at 06:51; Stop 11/14/24 at 06:51; Status DC Fentanyl Citrate 100 mcg STK-MED ONCE .ROUTE; Start 11/14/24 at 06:51; Stop 11/14/24 at 06:52; Status DC Propofol 200 mg STK-MED ONCE IV; Start 11/14/24 at 06:51; Stop 11/14/24 at 06:52; Status DC Dexamethasone Sodium Phosphate 10 mg STK-MED ONCE .ROUTE; Start 11/14/24 at 06:52; Stop 11/14/24 at 06:52; Status DC Lidocaine HCl 100 mg STK-MED ONCE .ROUTE; Start 11/14/24 at 06:52; Stop 11/14/24 at 06:52; Status DC Glycopyrrolate 1 mg STK-MED ONCE .ROUTE; Start 11/14/24 at 06:52; Stop 11/14/24 at 06:52; Status DC Neostigmine Methylsulfate 10 mg STK-MED ONCE IV; Start 11/14/24 at 06:52; Stop 11/14/24 at 06:53; Status DC Ondansetron HCl 4 mg STK-MED ONCE .ROUTE; Start 11/14/24 at 06:52; Stop 11/14/24 at 06:53; Status DC Midazolam HCl 2 mg STK-MED ONCE .ROUTE; Start 11/14/24 at 07:35; Stop 11/14/24 at 07:36; Status DC Iohexol 50 ml STK-MED ONCE IV; Start 11/14/24 at 08:20; Stop 11/14/24 at 08:20; Status DC Losartan Potassium 25 mg HS PO Last administered on 11/17/24at 22:31; Start 11/14/24 at 21:00; Stop 12/14/24 at 20:59 Lactulose 20 gm ONCE ONCE PO Last administered on 11/15/24at 03:22; Start 11/15/24 at 03:30; Stop 11/15/24 at 03:31; Status DC Lactulose 20 gm STK-MED ONCE .ROUTE; Start 11/15/24 at 03:18; Stop 11/15/24 at 03:18; Status DC Magnesium Sulfate 50 ml @ 0 mls/hr PROTOCOL PRN IV Last administered on 11/15/24at 08:36; Start 11/15/24 at 08:30; Stop 12/15/24 at 08:29 Potassium Chloride 100 ml @ 100 mls/hr AD PRN IV; Start 11/15/24 at 08:30; Stop 12/15/24 at 08:29 Potassium Chloride 20 meq AD PRN PO; Start 11/15/24 at 08:30; Stop 12/15/24 at 08:29 Potassium Chloride 20 meq AD PRN PO Last administered on 11/15/24at 12:52; Start 11/15/24 at 08:30; Stop 12/15/24 at 08:29 Morphine Sulfate 2 mg Q4H PRN IVP Last administered on 11/15/24at 20:42; Start 11/15/24 at 20:30; Stop 11/22/24 at 20:29 Lidocaine HCl 100 mg STK-MED ONCE .ROUTE; Start 11/17/24 at 11:25; Stop 11/17/24 at 11:25; Status DC Ondansetron HCl 4 mg STK-MED ONCE .ROUTE; Start 11/17/24 at 11:25; Stop 11/17/24 at 11:25; Status DC Succinylcholine Chloride 200 mg STK-MED ONCE .ROUTE; Start 11/17/24 at 11:25; Stop 11/17/24 at 11:25; Status DC Dexamethasone Sodium Phosphate 10 mg STK-MED ONCE .ROUTE; Start 11/17/24 at 11:25; Stop 11/17/24 at 11:26; Status DC Glycopyrrolate 1 mg STK-MED ONCE .ROUTE; Start 11/17/24 at 11:26; Stop 11/17/24 at 11:26; Status DC Propofol 200 mg STK-MED ONCE IV; Start 11/17/24 at 11:26; Stop 11/17/24 at 11:26; Status DC Neostigmine Methylsulfate 10 mg STK-MED ONCE IV; Start 11/17/24 at 11:26; Stop 11/17/24 at 11:27; Status DC Rocuronium [place] 50 mg STK-MED ONCE .ROUTE; Start 11/17/24 at 11:27; Stop 11/17/24 at 11:27; Status DC Fentanyl Citrate 100 mcg STK-MED ONCE .ROUTE; Start 11/17/24 at 11:27; Stop 11/17/24 at 11:28; Status DC Midazolam HCl 2 mg STK-MED ONCE .ROUTE; Start 11/17/24 at 11:28; Stop 11/17/24 at 11:29; Status DC Bupivacaine HCl 5 mg STK-MED ONCE .ROUTE; Start 11/17/24 at 11:38; Stop 11/17/24 at 11:38; Status DC Indocyanine [place] 25 mg STK-MED ONCE IJ; Start 11/17/24 at 11:55; Stop 11/17/24 at 11:56; Status DC Piperacillin Sod/ Tazobactam Sod 50 ml @ As Directed STK-MED ONCE .ROUTE Last administered on 11/17/24at 12:26; Start 11/17/24 at 12:15; Stop 11/17/24 at 12:16; Status DC Fentanyl Citrate 100 mcg STK-MED ONCE .ROUTE; Start 11/17/24 at 12:51; Stop 11/17/24 at 12:51; Status DC Bupivacaine HCl 150 mg STK-MED ONCE INJ Last administered on 11/17/24at 13:36; Start 11/17/24 at 13:36; Stop 11/17/24 at 13:40; Status DC Acetaminophen 100 ml @ As Directed STK-MED ONCE .ROUTE Last administered on 11/17/24at 14:36; Start 11/17/24 at 14:29; Stop 11/17/24 at 14:34; Status DC Acetaminophen/ Hydrocodone Bitart 1 tab Q4H PRN PO; Start 11/17/24 at 19:00; Stop 11/18/24 at 02:09; Status DC Pharmacy Profile Note 1 each ONCE MISC; Start 11/18/24 at 02:00; Stop 11/18/24 at 02:10; Status DC Acetaminophen/ Hydrocodone Bitart 1 tab Q4H PRN PO; Start 11/18/24 at 02:30; Stop 11/23/24 at 02:29 NAMAN GIRALDO MD November 18, 2024 10:39
[2024-11-18] MEDS ORDERED: AMOX1TAB16 PO (11:51)
--- NOTE | 2024-11-18 11:51 | DS ---
Discharge Summary Hospital Course Summary: Mr. montejo is a 39-year-old male that was seen and examined on 11/09/2024. Patient is a good historian of personal health Patient stated that he came to the emergency department with a chief complaint of abdominal pain. Onset was May 2024. Location is bilateral lower quadrants. Character is described as burning and dull ache. Symptoms are aggravated with eating. There was no alleviating factors. Patient reported associated constipation. Patient stated he has been worked up for his chronic abdominal pain by both his director of front office and his PCP and there was no explanation for this abdominal pain. In the emergency department CBC unremarkable, urinalysis unremarkable, total bilirubin 4.4, AST 136, ALT 620, alk: Phosphatase 258, ultrasound of abdomen shows liver parenchymal disease. Emergency room physician recommended patient be admitted with a diagnosis of transaminitis. 11/10 patient seen at bedside, no acute events overnight. Been afebrile, hemodynamically stable, tachycardia is improving he is saturating well on room air. MRCP is pending, we will follow up with the results. Further recommendations per GI. LFTs are trending back to normal, remainder of his labs are relatively unremarkable. We will expand differential for elevated LFTs, we will order acetaminophen, salicylate levels, HIV, hepatitis panel, blood alcohol level and a drug panel and follow up. 11/11 patient seen at bedside, no acute events overnight. He has been afebrile, hemodynamically stable, saturating well on room air. MRCP showing cholelithiasis with no evidence of choledocholithiasis. T bili increased from 4.7 up to 6.2, LFT stable, similar to yesterday. General surgery does not believe it is acute cholecystitis and that is underlying liver disease however platelets and INR are normal which is not consistent with cirrhosis. This appears to be acute in nature, we will consult GI for possible ERCP as there may be sphincter dysfunction given the size of the common bile duct and the uptrending T bili. 11/12 patient seen at bedside, no acute events overnight. T bili continues to up trend, LFTs still abnormal. Discussed case with GI who recommends an EUS tomorrow determine if an ERCP we will be necessary. Patient will be made NPO after midnight 11/13 patient is seen and examined at bedside, case discussed with the RN, no acute events overnight, scheduled for possible EUS today, to determine if an ERCP we will be needed. Patient has been NPO since midnight. Total bilirubin 6.4, AST of 158, ALT of 443, alkaline phosphate 219. HIDA scan shows findings suggestive of acute cholecystitis 11/14 patient remains hemodynamically stable, BP 137/84, afebrile, saturating normal on room air. He looks jaundiced, alert oriented x3, back in the room from having ERCP. CBC with a hemoglobin 14.1, hematocrit 42.1, platelet count 143, WBC 4.1. Liver enzymes with total bilirubin worse today at 8.4 compared to yesterday at 6.4. AST 169, ALT 442, alkaline phosphatase 219. Patient remains admitted to the medical floor Continue to monitor liver enzymes in a.m. Patient takes losartan 50 mg p.o. in a.m. and 25 mg p.o. at bedtime for blood pressure control We will discontinue atorvastatin, continue to monitor liver enzymes in a.m. 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 Choledocholithiasis was found. Power chart removal was accomplished with a biliary sphincterotomy, a stent was inserted. A biliary sphincterotomy was performed. The biliary tree was swept. One covered metal stent was placed into the common bile duct. One plastic stent was placed into the ventral pancreatic duct. DIFFICULT CANNULATION/PERIAMPULLARY DIVERTICULUM-DOPPLER WIRE AFTER STENTING SMALL STONE AND SLUDGE REMOVED-APPARENT MIRIZI SYNDROME WITH A STONE COMPRESSING CBD AT LEVEL OF CYSTIC DUCT-COULD NOT PASS SPIKED SCOPE UP TO THIS LEVEL SECONDARY TO LACK OF DILATATION IN THE DISTAL CBD. 11/15 patient is seen and examined at bedside, case discussed with the RN, no acute events overnight, patient tolerating clear liquid diet, he admits mild epigastric discomfort, lipase level of 1131, total bilirubin improved from 8.4- 6.6, discussed with the patient. Blood pressure 133/82, afebrile, saturating normal on room air. Patient remains admitted to the medical floor Continue to monitor liver enzymes in a.m. Continue current blood pressure management with the adjustment as needed Atorvastatin discontinued, continue to monitor liver enzymes Continue to follow amylase and lipase level in a.m. Discontinued lactulose yesterday Continue clear liquid diet Case discussed with General surgery, plan will be tentatively to take to the OR on Wednesday if the patient decides to stay in the hospital, if not patient can follow up as an outpatient and will scheduled electively. 11/16 patient is seen and examined at bedside, case discussed with the RN, no acute events overnight, patient comfortably in bed, mild epigastric discomfort earlier this morning, morphine x1 given, improvement of symptom, mildly nauseat ed, he is on Zofran IV as needed, hemodynamically stable, afebrile. Total bilirubin trending down 4.9, amylase greater than 4000. Discussed with the patient. We will continue to monitor liver enzymes and amylase and lipase level in a.m., discussed with the GI, continue clear liquid diet, continue to monitor for now, patient with post ERCP acute pancreatitis. Continue to follow surgical input and recommendation. 11/17 power chart reviewed, vital signs, laboratory tests, imaging tests and medications reviewed, case discussed with the RN, patient is scheduled for laparoscopic cholecystectomy today, we will continue to follow liver enzymes to include total bilirubin, AST and ALT. Continue current pain medication with the adjustment as needed. Continue to follow surgical input and recommendation. Possible discharge home over the weekend. 11/18 patient remains admitted to the medical floor, status post laparoscopic cholecystectomy 11/17/2024, tolerated the procedure well. Blood pressure 141/79, afebrile, saturating normal on room air. Hemoglobin 13.6, hematocrit 41.4. Total bilirubin today trended down 4.6, AST of 196, ALT of 472, alkaline phos 171. News Broadcaster(s): Gastroenterology and General surgery Procedure(s): Laparoscopic cholecystectomy 11/17/2024 Assessment/Plan: Final diagnosis Acute cholecystitis, POA Status post Post laparoscopic cholecystectomy 11/17/2024 Transaminitis, POA Status post ERCP 11/14/2024 (ERCP done reported as follows: 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 Choledocholithiasis was found. Power chart removal was accomplished with a biliary sphincterotomy, a stent was inserted. A biliary sphincterotomy was performed. The biliary tree was swept. One covered metal stent was placed into the common bile duct. One plastic stent was placed into the ventral pancreatic duct. DIFFICULT CANNULATION/PERIAMPULLARY DIVERTICULUM-DOPPLER WIRE AFTER STENTING SMALL STONE AND SLUDGE REMOVED-APPARENT MIRIZI SYNDROME WITH A STONE COMPRESSING CBD AT LEVEL OF CYSTIC DUCT-COULD NOT PASS SPIKED SCOPE UP TO THIS LEVEL SECONDARY TO LACK OF DILATATION IN THE DISTAL CBD.) Post ERCP acute pancreatitis Hypertension Hyperlipidemia Discharge Instructions: The patient to follow up with general surgeon Dr. Naman Borges as an outpatient next week. Written identification was provided by General surgery for the patient to repeat liver enzymes one day prior to his outpatient visit. Patient was advised to return to the hospital if his condition changes. The patient agreed with the plan and understood the information provided. Home Medications: Active Scripts Acetaminophen with Codeine (Acetaminophen-Cod #3 Tablet) 300 Mg-30 Mg Tablet, 1 TAB PO Q6HPRN PRN for pain for 7 Days, #28 TAB 0 Refills Prov:NAMAN BORGES MD 11/18/24 Reported Medications Rosuvastatin Calcium (Rosuvastatin Calcium) 10 Mg Tablet, 10 MG PO DAILY, TAB 11/10/24 Omeprazole (Omeprazole) 20 Mg Capsule.dr, 20 MG PO DAILY, CAP 11/10/24 Losartan Potassium (Losartan Potassium) 25 Mg Tablet, 25 MG PO HS, TAB 11/10/24 Losartan Potassium (Losartan Potassium) 50 Mg Tablet, 50 MG PO DAILY, TAB 11/10/24 Time spent arranging discharge: 31-60 minutes JESSIE SNYDER MD November 18, 2024 11:51
[2024-11-18 11:57] VITALS: BP 122/77; PULSE 69; RESP 19; TEMP 98.2
--- NOTE | 2024-11-18 13:12 | NUR ---
PATIENT DISCHARGED PERIPHERAL IV DISCONTINUED WITHOUT COMPLICATIONS. CATHETER INTACT. DISCHARGE INSTRUCTIONS GIVEN PRESCRIPTIONS SENT TO [facility] PATIENT AWARE TO F/U WITH GI AND WITH DR. MCKEON. ALL QUESTIONS ANSWERED.
--- NOTE | 2024-11-21 13:39 | NUR ---
Transitional Phone Call Spoke with patient, states doing "alright." States has his new prescription medications and is continuing other medications as instructed; denies questions or concerns. [facility] set up follow up appointment with surgeon - Dr. Butler on 11/23/2024; GI - [facility] on 11/24/2024; PCP - Dr. Bagley on 11/27/2024. No questions or concerns at this time.
[2024-11-21 18:11] LABS: AMPHETAMINES SERUM Negative ng/mL (Cutoff:50); COCAINE+METABOLITES SERUM Negative ng/mL (Cutoff:25)
== END 2024-11-18 13:20 | disposition home or self-care (01) | DRG 417 ==
LOC: EDH 17:58 → EDHIP 20:51 → 3CH 11-10 21:06
PROVIDERS: ADMIT Internal Medicine; ATTEND Internal Medicine
PROC: BF111ZZ Fluoroscopy of Biliary and Pancreatic Ducts using Low Osmolar Contrast (ICD-10-PCS; 2024-11-10)
PROC: 0DJ08ZZ Inspection of Upper Intestinal Tract, Via Natural or Artificial Opening Endoscopic (ICD-10-PCS; 2024-11-13)
PROC: 0FCD8ZZ Extirpation of Matter from Pancreatic Duct, Via Natural or Artificial Opening Endoscopic (ICD-10-PCS; 2024-11-14)
PROC: 0F798DZ Dilation of Common Bile Duct with Intraluminal Device, Via Natural or Artificial Opening Endoscopic (ICD-10-PCS; 2024-11-14)
PROC: 0F7D8DZ Dilation of Pancreatic Duct with Intraluminal Device, Via Natural or Artificial Opening Endoscopic (ICD-10-PCS; 2024-11-14)
PROC: 0FC98ZZ Extirpation of Matter from Common Bile Duct, Via Natural or Artificial Opening Endoscopic (ICD-10-PCS; 2024-11-14)
PROC: 0FT44ZZ Resection of Gallbladder, Percutaneous Endoscopic Approach (ICD-10-PCS; principal; 2024-11-18)
DX: K80.63 Calculus of gallbladder and bile duct with acute cholecystitis with obstruction (principal); K85.90 Acute pancreatitis without necrosis or infection, unspecified; I10 Essential (primary) hypertension; E78.00 Pure hypercholesterolemia, unspecified; G89.29 Other chronic pain; K59.00 Constipation, unspecified; E80.7 Disorder of bilirubin metabolism, unspecified; K83.8 Other specified diseases of biliary tract; K74.60 Unspecified cirrhosis of liver; E78.5 Hyperlipidemia, unspecified; Z79.899 Other long term (current) drug therapy
CPT/HCPCS: 36415; 43259; 43264; 43273; 43274; 74150; 74181; 74328; 74330; 76705; 78226; 80048; 80053; 80074; 80076; 80305; 81001; 82140; 82150; 83630; 83690; 83735; 84100; 85025; 85027; 85610; 85730; 86701; 86850; 86900; 86901; 87071; 87076; 87177; 87205; 87390; 99285; A4606; A9537; C1769; C1773; G0378; G0481; J0330; J1100; J2003; J2250; J2270; J2405; J2543; J2704; J2710; J3010; J3475; J3490; J7030; J7120; Q0163; Q9967; A4215; A4216; A4222; A4223; A4600; A4620; A4649; A4657; A6206; A7002; C1876; J0665; S8037

== ENCOUNTER → 2024-12-18 | Outpatient (CLI) | payer OTHER ==
[~2024-12-18] MED LIST changes: +ACET-2079 PO; +AMOX1TAB16 PO; -FAMO-136 PO; +GADOTERATE MEGLUMINE 10 MMOL/20 ML VIAL IV ONE; +LOSA25TA41 PO; +LOSA50TA64 PO; +OMEP20CA12 PO; -ONDA-243 PO
--- NOTE | 2024-12-18 10:04 | HMCIMG ---
MR ABDOMEN W/WO CON HISTORY: Malignant neoplasm of biliary tract COMPARISON: None TECHNIQUE: MRI of the abdomen was performed utilizing multiple pulse sequences in axial, coronal and sagittal planes. Patient was given 20 cc of Clariscan through intravenous route. FINDINGS: No pleural effusion is seen. Liver measures 17 cm. Spleen, adrenal glands and pancreas are unremarkable. Both kidneys are seen without hydronephrosis. Intrahepatic ductal dilatation is seen. There is intrahepatic biliary stent causing artifacts. No enhancing mass lesion is seen. Gallbladder is not well visualized. There is hyperintense focus near the gallbladder region may be related to contracted gallbladder with other possibilities not excluded. Clinical correlation is recommended. Subtle mass lesion cannot be excluded.. IMPRESSION: 1. Gallbladder is not well visualized. There is hyperintense focus near the gallbladder region may be related to contracted gallbladder with other possibilities not excluded. Clinical correlation is recommended. Subtle mass lesion cannot be excluded. Intrahepatic ductal dilatation is seen. Intrahepatic biliary stent is seen with artifacts
== END | disposition home or self-care (01) ==
LOC: RAH 07:29
PROVIDERS: ATTEND Family Medicine
DX: C24.9 Malignant neoplasm of biliary tract, unspecified (principal); K76.89 Other specified diseases of liver; R19.09 Other intra-abdominal and pelvic swelling, mass and lump
CPT/HCPCS: 74183; A9575